=== PATIENT | female | born 1945 | race Hispanic/Latino ===

== ENCOUNTER 2017-04-15 16:04 | Inpatient (IN) | payer MEDICARE ==
[2017-04-15 17:19] LABS: Basophils % (Auto) 0.7 % (0.0-1.8); Eosinophils % (Auto) 1.4 % (0.0-4.3); Hematocrit 38.3 % (30.3-42.9); Hemoglobin 12.6 gm/dl (10.1-14.3); Mean Corpuscular HGB Conc 33 % (30-34); Mean Corpuscular Hemoglobin 31 pg (28-32); Mean Corpuscular Volume 95 fl (79-97); Platelet Count 277 K/mm3 (140-440); Red Blood Count 4.04 M/mm3 (3.65-5.03); Red Cell Distribution Width 14.9 % (13.2-15.2); White Blood Count 8.4 K/mm3 (4.5-11.0)
[2017-04-15 17:29] LABS: Creatine Kinase MB 3.3 ng/mL (0.0-4.0)
[2017-04-15 17:30] LABS: Anion Gap 16 mmol/L; BUN/Creatinine Ratio 23.33; Blood Urea Nitrogen 14 mg/dL (7-17); Calcium 9.7 mg/dL (8.4-10.2); Carbon Dioxide 28 mmol/L (22-30); Chloride 101.2 mmol/L (98-107); Creatine Kinase 60 units/L (30-135); Glucose 84 mg/dL (65-100); Potassium 4.2 mmol/L (3.6-5.0); Sodium 141 mmol/L (137-145)
--- NOTE | 2017-04-15 18:09 | Cat Scan Report ---
FINAL REPORT PROCEDURE: CT HEAD/BRAIN WO CON TECHNIQUE: Computerized tomography of the head was performed without contrast material. HISTORY: dizzy COMPARISON: No prior studies are available for comparison. FINDINGS: Brain: There is no evidence of intracranial hemorrhage. No parenchymal hemorrhage is seen. No mass lesions or mass effect is identified. No abnormal extra-axial fluid collections or masses are seen. There is a well-defined oval area of decreased density in the right side of the lizabeth measuring 3.5 x 7.6 millimeters. The appearance is consistent with a mature lacunar infarct. There is some decreased density seen in the periventricular white matter without mass effect. This is fairly symmetric and does not exhibit any mass effect consistent with gliosis probably on the basis of microvascular disease or white matter changes of aging. Ventricles: The ventricles, sulcal pattern and fissures are prominent consistent with atrophy. Bones: No evidence of acute fracture. Paranasal sinuses: clear Mastoid air cells: A few of the mastoid air cells on the right anteriorly inferiorly are opacified. Mastoid air cells on the right and left otherwise are clear. IMPRESSION: There is evidence of mild atrophy and gliosis. Old lacunar infarct visualized right side of the lizabeth. No acute intracranial abnormalities are identified. Mild right-sided mastoid air cell disease. No other abnormalities are identified.
--- NOTE | 2017-04-15 21:54 | Emergency Department Report ---
ED Syncope HPI - General Chief Complaint: Dizziness Stated Complaint: SYNCOPE Time Seen by Provider: 04/15/17 20:50 Source: patient Exam Limitations: no limitations - History of Present Illness Initial Comments: 71-year-old female the past medical history of osteoporosis, arthritis, and hypothyroidism presents to the hospital with complaint of near syncopal episode. Patient was at PMD office receiving a intra-articular injection at the knee for arthritis. Patient then began to sit up and felt like she was going to pass out and everything was turning dark. The staff gave her a banana thinking maybe her blood sugar was low however, when patient sat up again the near syncopal episode returned. Patient states she has had good by mouth intake and denies nausea, vomiting, vertical, melena, hematochezia, chest pain shortness of breath, headache, or focal weakness/numbness. Patient has received these injections 3 previous times without any side effects or issues. PMD: Dr. Kena Virk - Related Data Allergies/Adverse Reactions: Allergies cephalexin monohydrate [From [employer]] Allergy (Verified 04/15/17 21:11) Hives Home Medications: Ambulatory Orders Alendronate Sodium [Fosamax] 70 mg PO QWEEK 04/15/17 Ergocalciferol(Vitamin D2)(Nf) [Vitamin D (Nf)] 400 unit PO DAILY 04/15/17 Levothyroxine [Synthroid] 100 mcg PO QAM 04/15/17 Omeprazole Magnesium [PriLOSEC Otc] 40 mg PO QDAY 04/15/17 Tiotropium [Spiriva] 18 mcg IH QDAY 04/15/17 ED Review of Systems ROS: Stated complaint: SYNCOPE Other details as noted in HPI Comment: All other systems reviewed and negative Other: Constitutional: No fevers chills Eyes: No eye pain visual changes ENT: No ear pain or throat pain Neck: Denies pain Respiratory: Denies cough wheezing shortness of breath Cardiovascular: Denies chest pain, palpitations GI: Denies abdominal pain, nausea, vomiting, diarrhea : Denies dysuria, urinary frequency, or urgency Musculoskeletal: Chronic knee pain Skin: Denies rash, lesions, erythema Neurologic: Denies headache, numbness, weakness Psychiatric: Denies suicidal ideation, hallucinations ED Past Medical Hx - Past Medical History Previous Medical History?: Yes Hx Arthritis: Yes (osteoporosis) Additional medical history: Hypothyroidism - Surgical History Past Surgical History?: Yes Additional Surgical History: left wrist, fracture repair. - Social History Smoking Status: Current Every Day Smoker Substance Use Type: None - Medications Home Medications: Home Medications Medication Instructions Recorded Confirmed Last Taken Type Alendronate Sodium [Fosamax] 70 mg PO QWEEK 04/15/17 04/15/17 04/15/17 History Ergocalciferol(Vitamin D2)(Nf) 400 unit PO DAILY 04/15/17 04/15/17 04/15/17 History [Vitamin D (Nf)] Levothyroxine [Synthroid] 100 mcg PO QAM 04/15/17 04/15/17 04/15/17 History Omeprazole Magnesium [PriLOSEC Otc] 40 mg PO QDAY 04/15/17 04/15/17 04/15/17 History Tiotropium [Spiriva] 18 mcg IH QDAY 04/15/17 04/15/17 04/15/17 History ED Physical Exam - General Limitations: No Limitations - Other Other exam information: General: No limitations, patient is alert in no acute distress Head exam: Atraumatic, normocephalic Eyes exam: Normal appearance, pupils equal reactive to light, extraocular movements intact ENT: Moist mucous membrane, normal oropharynx Neck exam: Normal inspection, full range of motion, no meningismus nontender Respiratory exam: Clear to auscultation bilateral, no wheezes, rales, crackles Cardiovascular: Normal rate and rhythm, normal heart sounds Abdomen: Soft, nondistended, and nontender, with normal bowel sounds, no rebound, or guarding Extremity: Full range of motion normal inspection no deformity. Band-Aid noted at injection site of right superior lateral knee. No swelling, erythema, or warmth Back: Normal Inspection, full range of motion, no tenderness Neurologic: Alert, oriented x3, cranial nerves intact, no motor or sensory deficit Psychiatric: normal affect, normal mood Skin: Warm, dry, intact ED Course Vital Signs 04/15/17 04/15/17 04/15/17 16:18 21:07 21:09 Temperature 97.5 F L Pulse Rate 60 68 Pulse Rate [ 57 L Lying] Pulse Rate [ 54 L Sitting] Pulse Rate [ 68 Standing] Respiratory 16 16 Rate Blood Pressure 154/92 Blood Pressure 148/78 [Lying] Blood Pressure 135/81 [Right] Blood Pressure 138/81 [Sitting] Blood Pressure 135/81 [Standing] O2 Sat by Pulse 100 98 Oximetry - Reevaluation(s) Reevaluation #1: 04/15/17 21:54 Orthostatic vital signs were fairly unremarkable. Patient states she feels better however, given the syncopal episodes with normal labs and she'll be admitted to the hospital for further workup. ED Medical Decision Making - Lab Data Result diagrams: 04/15/17 16:50 04/15/17 16:50 Lab Results 04/15/17 04/15/17 04/15/17 Range/Units 16:24 16:50 16:50 WBC 8.4 (4.5-11.0) K/mm3 RBC 4.04 (3.65-5.03) M/mm3 Hgb 12.6 (10.1-14.3) gm/dl Hct 38.3 (30.3-42.9) % MCV 95 (79-97) fl MCH 31 (28-32) pg MCHC 33 (30-34) % RDW 14.9 (13.2-15.2) % Plt Count 277 (140-440) K/mm3 Lymph % (Auto) 21.0 (13.4-35.0) % [place] % (Auto) 9.8 H (0.0-7.3) % Eos % (Auto) 1.4 (0.0-4.3) % Baso % (Auto) 0.7 (0.0-1.8) % Lymph # 1.8 (1.2-5.4) K/mm3 [place] # 0.8 (0.0-0.8) K/mm3 Eos # 0.1 (0.0-0.4) K/mm3 Baso # 0.1 (0.0-0.1) K/mm3 Seg Neutrophils % 67.1 (40.0-70.0) % Seg Neutrophils # 5.6 (1.8-7.7) K/mm3 Sodium 141 (137-145) mmol/L Potassium 4.2 (3.6-5.0) mmol/L Chloride 101.2 (98-107) mmol/L Carbon Dioxide 28 (22-30) mmol/L Anion Gap 16 mmol/L BUN 14 (7-17) mg/dL Creatinine 0.6 L (0.7-1.2) mg/dL Estimated GFR > 60 ml/min BUN/Creatinine Ratio 23.33 % Glucose 84 (65-100) mg/dL POC Glucose 118 H (70-105) Calcium 9.7 (8.4-10.2) mg/dL Total Creatine Kinase 60 (30-135) units/L CK-MB (CK-2) 3.3 (0.0-4.0) ng/mL CK-MB (CK-2) Rel Index 5.5 H (0-4) Troponin T < 0.010 (0.00-0.029) ng/mL - EKG Data -: EKG Interpreted by Me (sinus bradycardia 56 T wave inversion in V2 and V1. No ST elevation OK) - EKG Data When compared to previous EKG there are: previous EKG unavailable - Radiology Data Radiology results: report reviewed (CT head: Atrophy, gliosis, old lacunar infarct) - Medical Decision Making Other differential: Medication reaction Plan to admit patient to hospital for further observation and workup of postural related near syncopal episodes. UA ordered and pending at disposition - Differential Diagnosis vertigo, near syncope, anemia, carotid stenosis, dehydration, vasovagal Critical Care Time: No Critical care attestation.: If time is entered above; I have spent that time in minutes in the direct care of this critically ill patient, excluding procedure time. ED Disposition Clinical Impression: Near syncope, Arthritis, Hypothyroidism Disposition: OP ADMIT IP TO THIS HOSP Is pt being admited?: Yes Condition: Stable Time of Disposition: 21:56 (Dr. Nugent/hosp)
--- NOTE | 2017-04-15 23:01 | History and Physical Report ---
History of Present Illness Date of examination: 04/15/17 Date of admission: 04/15/17 Chief complaint: near syncope History of present illness: patient is 71-year-old with history of hypothyroidism, arthritis, osteoporosis. She went to her orthopedic surgeon and had an injection to right knee. Soon after while she was about to get up she felt some dizziness, and felt as if she was about to pass out. This happened twice at office orthopedic surgeon today. She states she has had similar injections before and has been uneventful. She was therefore sent to the emergency department for evaluation. She denies any chest pain or shortness of breath. No fever. She will be admitted for further work up. Past History Past Medical History: arthritis, hypothyroidism, other (osteoporosis) Past Surgical History: Other (left wrist surgery) Social history: , lives with family, smoking, full code Family history: CAD, diabetes, hypertension Medications and Allergies Allergies Allergy/AdvReac Type Severity Reaction Status Date / Time cephalexin monohydrate Allergy Hives Verified 04/15/17 21:11 [From Kef[employer]] Home Medications Medication Instructions Recorded Confirmed Last Taken Type Alendronate Sodium [Fosamax] 70 mg PO QWEEK 04/15/17 04/15/17 04/15/17 History Ergocalciferol(Vitamin D2)(Nf) 400 unit PO DAILY 04/15/17 04/15/17 04/15/17 History [Vitamin D (Nf)] Levothyroxine [Synthroid] 100 mcg PO QAM 04/15/17 04/15/17 04/15/17 History Omeprazole Magnesium [PriLOSEC Otc] 40 mg PO QDAY 04/15/17 04/15/17 04/15/17 History Tiotropium [Spiriva] 18 mcg IH QDAY 04/15/17 04/15/17 04/15/17 History Review of Systems All systems: negative (no fever, no chest pain, no shortness of breath, no headache. All other systems reviewed and are negative) Exam - Physical Exam Narrative exam: Gen appearance: Not in acute distress HEENT: normocephalic,atraumatic Neck:supple, no JVD Lungs: clear to auscultation bilaterally, no crackles or wheezes Heart :S1 and S2 regular, no murmurs, rubs or gallop Abdomen: Soft, non tender, non-distended, normal bowel sounds Extremities :no edema no clubbing or cyanosis, l Neuro: Awake alert oriented 3, normal speech, moves all ext no focal neurological signs - Constitutional Vitals: Temp Pulse Resp BP Pulse Ox 97.5 F L 67 15 146/86 94 04/15/17 16:18 04/15/17 22:00 04/15/17 22:00 04/15/17 22:00 04/15/17 22:00 Results - Labs CBC & Chem 7: 04/15/17 16:50 04/15/17 16:50 Labs: Abnormal lab results 04/15/17 04/15/17 04/15/17 Range/Units 16:24 16:50 16:50 [place] % (Auto) 9.8 H (0.0-7.3) % Creatinine 0.6 L (0.7-1.2) mg/dL POC Glucose 118 H (70-105) CK-MB (CK-2) Rel Index 5.5 H (0-4) Assessment and Plan Near syncope. Admit to telemetry. Obtain neuro checks every 6 hours. Obtain Echocardiogram. Orthostatic vitals every [address] head unremarkable. Hypothyroidism. Resume levothyroxine Arthritis. She gets injection from Orthopedic Surgeon. Osteoporosis. On Fosamax DVT prophylaxis with heparin Full CODE STATUS
[2017-04-15] MEDS ORDERED: ZOFRAN IV PRN (23:02)
[2017-04-15] MEDS ORDERED: MORPHINE IV PRN (23:02)
[2017-04-15] MEDS ORDERED: DULCOLAX PR PRN (23:02)
[2017-04-15] MEDS ORDERED: TYLENOL PO PRN (23:02)
[2017-04-15] MEDS ORDERED: MILK OF MAGNESIA PO PRN (23:02)
[2017-04-15 23:04] LABS: Bacteria,Urine 1+ /HPF (Negative); Bilirubin,Urine NEG (Negative); Blood,Urine NEG (Negative); Ketones,Urine NEG (Negative); Leukocyte Esterase,Urine TR (Negative); Mucus,Urine FEW /HPF; Nitrite,Urine NEG (Negative); Protein,Urine <15 mg/dL mg/dL (Negative); Urobilinogen,Urine < 2.0 mg/dL (<2.0)
[2017-04-15 23:13] LABS: RBC,Urine < 1.0 /HPF (0.0-6.0)
[2017-04-16] MEDS: NACL 0.9% 1000 ML 1,000 ML IV SCH ×2 (01:41→18:13)
--- NOTE | 2017-04-16 02:24 | Admit Criteria Form ---
Admission Criteria Documentation: SYNCOPE Clinical Indications for Admission to Inpatient Care ( Place 'X' for any and all applicable criteria): Admission is indicated for syncope and ANY ONE of the following (1)(2)(3)(4)(5) (6)(7) : [X]I. Inpatient admission required rather than observation care (Also use Syncope: Observation Care Criteria as appropriate) because of ANY ONE of the following: [ ]a) Hemodynamic instability that is severe or persistent [X]b) Cardiac arrhythmias of immediate concern identified or strongly suspected (eg, needs electrophysiologic study) [ ]c) Acute coronary syndrome identified (Also use Myocardial Infarction or Angina Criteria form ) [ ]d) Structural cardiac disorder (eg, aortic stenosis) suspected as cause that requires immediate correction [ ]e) Respiratory symptoms (eg, dyspnea, tachypnea) that are severe or persistent [ ]f) Neurologic signs or symptoms that are severe or persistent ( eg, stroke, seizures, altered mental status) [ ]g) Severe electrolyte abnormalities requiring inpatient care [ ]h) Supplemental oxygen or respiratory treatment for over 24 hrs that are performable only in acute inpatient setting [ ]i) IV fluid to replace significant ongoing (eg, for over 24 hrs ) losses (>3 L/m2 per day) [ ]j) Continuous intravenous infusion of anticoagulation, platelet inhibitor, vasoactive, or antiarrhythmic medication(15)(16) [ ]k) Pulmonary artery catheter monitoring [ ]l) Temporary pacemaker placement(17) [ ]m) Emergent cardioversion(18) [ ]n) Other conditions, treatment or monitoring requiring inpatient admission [ ]II. Suspicion of imminently dangerous cause (eg, rare causes like pericardial tamponade, pulmonary embolism) [ ]III. Syncope causing severe injury requiring hospitalization Extended stay beyond goal length of stay may be needed for(28) [ ]a) Dangerous arrhythmia(15)(23)(27)(29) [ ]b) Myocardial ischemia [ ]c) Seizure disorder [ ]d) Syncope-related injuries The original [employer] content created by [employer] has been revised. The portions of the content which have been revised are identified through the use of italic text or in bold, and Josh [employer] has neither reviewed nor approved the modified material. All other unmodified content is copyright [employer] [facility] [employer]. Please see references footnoted in the original [facility] edition 2016 Admission Criteria Met: Yes
[2017-04-16 05:36] LABS: Eosinophils % (Auto) 3.6 % (0.0-4.3); Hemoglobin 11.9 gm/dl (10.1-14.3); Mean Corpuscular HGB Conc 33 % (30-34); Mean Corpuscular Hemoglobin 31 pg (28-32); Mean Corpuscular Volume 94 fl (79-97); Platelet Count 241 K/mm3 (140-440); Red Blood Count 3.81 M/mm3 (3.65-5.03); Red Cell Distribution Width 14.7 % (13.2-15.2); White Blood Count 7.3 K/mm3 (4.5-11.0)
[2017-04-16] MEDS: SYNTHROID PO SCH (05:37)
[2017-04-16] MEDS: HEPARIN SUB-Q SCH ×3 (05:38→21:37)
[2017-04-16 05:50] LABS: Anion Gap 15 mmol/L; Blood Urea Nitrogen 13 mg/dL (7-17); Calcium 9.2 mg/dL (8.4-10.2); Carbon Dioxide 26 mmol/L (22-30); Chloride 101.6 mmol/L (98-107); Glucose 81 mg/dL (65-100); Potassium 3.7 mmol/L (3.6-5.0); Sodium 139 mmol/L (137-145)
--- NOTE | 2017-04-16 08:00 | Progress Note ---
Assessment and Plan Assessment and plan: --Near syncope; probably vasovagal/autonomic No new episodes of seeing near syncope since admission, syncope workup is in progress, fall precautions, physical therapy --History of hypothyroidism; stable on Synthroid --Osteoporosis continue Fosamax --History of osteoarthritis; supportive care --Mild malnutrition ; BMI of 18.2 , nutrition supplements and supportive care --DVT prophylaxis with heparin --Full CODE STATUS Physical therapy, closely monitor possible discharge home tomorrow if stable Discharge planning: Per case management/ home health and DC if needed History Interval history: Patient seen and evaluated medical records reviewed Admitted with near syncope and dizziness Syncope workup is in progress No new episodes of near syncope or syncope since admission Alert awake oriented 3 not in acute distress Hospitalist Physical - Constitutional Vitals: Temp Pulse Resp BP Pulse Ox 98.5 F 74 20 147/89 97 04/16/17 06:15 04/16/17 06:15 04/16/17 06:15 04/16/17 06:15 04/16/17 06:15 General appearance: Present: no acute distress, well-nourished - EENT Eyes: Present: PERRL, EOM intact - Neck Neck: Present: supple, normal ROM - Respiratory Respiratory effort: normal Respiratory: bilateral: diminished, negative: rales, rhonchi, wheezing - Cardiovascular Rhythm: regular Heart Sounds: Present: S1 & S2 - Extremities Extremities: no ischemia, pulses intact, No edema - Abdominal General gastrointestinal: soft, non-tender, non-distended, normal bowel sounds - Integumentary Integumentary: Present: clear, warm - Psychiatric Psychiatric: appropriate mood/affect, cooperative - Neurologic Neurologic: CNII-XII intact, moves all extremities Results - Labs CBC & Chem 7: 04/16/17 04:42 04/16/17 04:42 Labs: Laboratory Last Values WBC 7.3 K/mm3 (4.5-11.0) 04/16/17 04:42 RBC 3.81 M/mm3 (3.65-5.03) 04/16/17 04:42 Hgb 11.9 gm/dl (10.1-14.3) 04/16/17 04:42 Hct 36.0 % (30.3-42.9) 04/16/17 04:42 MCV 94 fl (79-97) 04/16/17 04:42 MCH 31 pg (28-32) 04/16/17 04:42 MCHC 33 % (30-34) 04/16/17 04:42 RDW 14.7 % (13.2-15.2) 04/16/17 04:42 Plt Count 241 K/mm3 (140-440) 04/16/17 04:42 Lymph % (Auto) 27.0 % (13.4-35.0) 04/16/17 04:42 [place] % (Auto) 10.3 % (0.0-7.3) H 04/16/17 04:42 Eos % (Auto) 3.6 % (0.0-4.3) 04/16/17 04:42 Baso % (Auto) 1.0 % (0.0-1.8) 04/16/17 04:42 Lymph # 2.0 K/mm3 (1.2-5.4) 04/16/17 04:42 [place] # 0.8 K/mm3 (0.0-0.8) 04/16/17 04:42 Eos # 0.3 K/mm3 (0.0-0.4) 04/16/17 04:42 Baso # 0.1 K/mm3 (0.0-0.1) 04/16/17 04:42 Seg Neutrophils % 58.1 % (40.0-70.0) 04/16/17 04:42 Seg Neutrophils # 4.2 K/mm3 (1.8-7.7) 04/16/17 04:42 Sodium 139 mmol/L (137-145) 04/16/17 04:42 Potassium 3.7 mmol/L (3.6-5.0) 04/16/17 04:42 Chloride 101.6 mmol/L (98-107) 04/16/17 04:42 Carbon Dioxide 26 mmol/L (22-30) 04/16/17 04:42 Anion Gap 15 mmol/L 04/16/17 04:42 BUN 13 mg/dL (7-17) 04/16/17 04:42 Creatinine 0.5 mg/dL (0.7-1.2) L 04/16/17 04:42 Estimated GFR > 60 ml/min 04/16/17 04:42 BUN/Creatinine Ratio 26.00 % 04/16/17 04:42 Glucose 81 mg/dL (65-100) 04/16/17 04:42 POC Glucose 118 (70-105) H 04/15/17 16:24 Calcium 9.2 mg/dL (8.4-10.2) 04/16/17 04:42 Total Creatine Kinase 60 units/L (30-135) 04/15/17 16:50 CK-MB (CK-2) 3.3 ng/mL (0.0-4.0) 04/15/17 16:50 CK-MB (CK-2) Rel Index 5.5 (0-4) H 04/15/17 16:50 Troponin T < 0.010 ng/mL (0.00-0.029) 04/15/17 16:50 Urine Color Yellow (Yellow) 04/15/17 22:30 Urine Turbidity Cloudy (Clear) 04/15/17 22:30 Urine pH 7.0 (5.0-7.0) 04/15/17 22:30 Ur Specific [place] 1.013 (1.003-1.030) 04/15/17 22:30 Urine Protein <15 mg/dl mg/dL (Negative) 04/15/17 22:30 Urine Glucose (UA) Neg mg/dL (Negative) 04/15/17 22:30 Urine Ketones Neg mg/dL (Negative) 04/15/17 22:30 Urine Blood Neg (Negative) 04/15/17 22:30 Urine Nitrite Neg (Negative) 04/15/17 22:30 Urine Bilirubin Neg (Negative) 04/15/17 22:30 Urine Urobilinogen < 2.0 mg/dL (<2.0) 04/15/17 22:30 Ur Leukocyte Esterase Tr (Negative) 04/15/17 22:30 Urine WBC (Auto) 7.0 /HPF (0.0-6.0) H 04/15/17 22:30 Urine RBC (Auto) < 1.0 /HPF (0.0-6.0) 04/15/17 22:30 U Epithel Cells (Auto) 1.0 /HPF (0-13.0) 04/15/17 22:30 Urine Bacteria (Auto) 1+ /HPF (Negative) 04/15/17 22:30 Calcium Oxalate Crystal 1+ 04/15/17 22:30 Urine Mucus Few /HPF 04/15/17 22:30 Urine Yeast (Budding) 2+ /HPF 04/15/17 22:30
[2017-04-16] MEDS ORDERED: NON-FORMULARY (Omeprazole Magnesium [Prilosec Otc] 40 MG) PO SCH (10:00)
[2017-04-16] MEDS ORDERED: ERGOCALCIFEROL 400 UNIT PO SCH (10:00)
[2017-04-16] MEDS: SPIRIVA IH SCH (10:31)
[2017-04-16] MEDS: PROTONIX PO SCH (12:40)
[2017-04-16] MEDS: VITAMIN D3 PO SCH (12:40)
[2017-04-17] MEDS: NACL 0.9% 1000 ML 1,000 ML IV SCH (06:43)
[2017-04-17] MEDS: SYNTHROID PO SCH (06:44)
[2017-04-17] MEDS: HEPARIN SUB-Q SCH ×2 (06:44→13:45)
[2017-04-17] MEDS: SPIRIVA IH SCH ×2 (07:20→11:52)
[2017-04-17] MEDS: PROTONIX PO SCH (09:50)
[2017-04-17] MEDS: VITAMIN D3 PO SCH (09:50)
--- NOTE | 2017-04-17 13:27 | Discharge Summary ---
Providers - Providers Date of Admission: 04/15/17 23:02 Date of discharge: 04/17/17 Attending physician: KIRSTIE TURK 04/16/17 07:59 Physical Therapy Evaluation and Treat [CONS] Routine Comment: Reason For Exam: near syncope/fall risk Primary care physician: SONIA MYERS Hospitalization Reason for admission: near syncope Condition: Stable Pertinent studies: CT head without contrast; mild atrophy and gliosis or lacunar infarct Carotid Doppler; no hemodynamically significant stenosis Echocardiogram; normal left ventricular function ejection fraction 60-65% Hospital course: 71-year-old female patient with multiple medical problems was admitted through emergency room with the near syncopal episode Admitted to the hospital symptomatically managed fall precautions observed, syncope workup was negative as mentioned above Received physical therapy, case management has evaluated the patient, set up for home health Patient was evaluated for home oxygen, however her O2 sats were within the protocols, and no indication for home oxygen Today she is comfortable in bed no new complaints, physical examination is within normal limits, hemodynamically and clinically stable for discharge and follow up with the primary care physician. Smoking cessation counseling done patient strongly advised to quit tobacco use, patient verbalized understanding Advised to observe fall precautions Meclizine 12.5 mg twice a day advised for severe dizziness and vertigo as needed Discharge diagnosis : --Near syncope; probably vasovagal/autonomic --History of hypothyroidism; --Osteoporosis --History of osteoarthritis; --Mild malnutrition ; BMI of 18.2 , --Ongoing tobacco use Disposition: DC-01 TO HOME OR SELFCARE Time spent for discharge: 31 min Core Measure Documentation - Palliative Care Palliative Care/ Comfort Measures: Not Applicable - Core Measures Any of the following diagnoses?: none Exam - Constitutional Vitals: Temp Pulse Resp BP Pulse Ox 97.6 F 76 18 156/85 96 04/17/17 08:00 04/17/17 08:00 04/17/17 08:00 04/17/17 08:00 04/17/17 08:00 General appearance: Present: no acute distress, well-nourished - EENT Eyes: Present: PERRL, EOM intact - Neck Neck: Present: supple, normal ROM - Respiratory Respiratory effort: normal Respiratory: negative: rales, rhonchi, wheezing - Cardiovascular Rhythm: regular Heart Sounds: Present: S1 & S2 - Extremities Extremities: no ischemia, No edema Peripheral Pulses: within normal limits - Abdominal General gastrointestinal: Present: soft, non-tender, non-distended, normal bowel sounds - Integumentary Integumentary: Present: clear, warm - Musculoskeletal Musculoskeletal: strength equal bilaterally, generalized weakness - Psychiatric Psychiatric: appropriate mood/affect, cooperative - Neurologic Neurologic: CNII-XII intact, moves all extremities Plan Activity: no driving until cleared by PCP, fall precautions Diet: regular Durable Medical Equipment Needed Upon Discharge: Cane, Walker-Standard Additional Instructions: If you have any current episodes of near syncope, you may need outpatient neurology evaluation Follow up with: SONIA MYERS MD [Primary Care Provider] - 3-5 Days Prescriptions: Meclizine [Antivert] 12.5 mg PO BID PRN #20 tablet PRN Reason: Vertigo Nicotine [Habitrol] 7 mg TD DAILY #30 patch
[2017-04-17 16:00] VITALS: BP 129/71
--- NOTE | 2017-04-20 07:29 | Vascular Lab Report ---
CAROTID DUPLEX STUDY: RIGHT PSVEDV CCA PROX:[id number] CCA DIST: 7417 ICA PROX: 4815 ICA MID: 8826 ICA DIST: 9027 ECA: 69 VERT: 36 10 LEFT PSVEDV CCA PROX: 9819 CCA DIST: 7217 ICA PROX: 6418 ICA MID:7620 ICA DIST: 8227 ECA: 85 VERT: 58 12 REASON FOR EXAM: Carotid artery stenosis/syncope. COMMENTS ON THE RIGHT: Doppler frequency analysis is consistent with 16 to 49 percent diameter reduction of the internal carotid artery. Minimal amount of plaque is seen. The common carotid artery is patent. The external carotid artery is patent. The vertebral artery has antegrade flow. COMMENTS ON THE LEFT: Doppler frequency analysis is consistent with 16 to 49 percent diameter reduction of the internal carotid artery. Minimal amount of plaque is seen. The common carotid artery is patent. The external carotid artery is patent. The vertebral artery has antegrade flow. IMPRESSION: Less than 50% diameter reduction in the internal carotid arteries bilaterally. Consider repeat carotid artery duplex in 12 months.
== END 2017-04-17 18:19 | disposition home health service (06) | DRG 74 ==
LOC: ED 16:04 → 3A 23:02
PROVIDERS: ADMIT Internal Medicine; ATTEND Internal Medicine
DX: G90.8 Other disorders of autonomic nervous system (principal); E44.1 Mild protein-calorie malnutrition; Z68.1 Body mass index [BMI] 19.9 or less, adult; M19.90 Unspecified osteoarthritis, unspecified site; E03.9 Hypothyroidism, unspecified; M81.0 Age-related osteoporosis without current pathological fracture; G89.29 Other chronic pain; F17.200 Nicotine dependence, unspecified, uncomplicated; Z88.1 Allergy status to other antibiotic agents; Z79.899 Other long term (current) drug therapy; Z82.49 Family history of ischemic heart disease and other diseases of the circulatory system; Z83.3 Family history of diabetes mellitus; Z71.6 Tobacco abuse counseling
CPT/HCPCS: 36415; 70450; 80048; 81001; 82550; 82553; 82962; 84484; 85025; 87086; 93005; 93010; 93306; 93880; 94760; 99406; G8978-GP; G8979-GP; J1644; J7030

== ENCOUNTER 2017-04-23 13:13 | Inpatient (IN) | payer MEDICARE ==
[2017-04-23 14:07] LABS: Eosinophils % (Auto) 3.2 % (0.0-4.3); Hematocrit 35.3 % (30.3-42.9); Hemoglobin 11.5 gm/dl (10.1-14.3); Mean Corpuscular HGB Conc 33 % (30-34); Mean Corpuscular Hemoglobin 31 pg (28-32); Mean Corpuscular Volume 94 fl (79-97); Platelet Count 221 K/mm3 (140-440); Red Blood Count 3.74 M/mm3 (3.65-5.03); Red Cell Distribution Width 14.5 % (13.2-15.2); White Blood Count 7.2 K/mm3 (4.5-11.0)
[2017-04-23 14:23] LABS: BUN/Creatinine Ratio 21.66; Blood Urea Nitrogen 13 mg/dL (7-17); Calcium 8.5 mg/dL (8.4-10.2); Carbon Dioxide 24 mmol/L (22-30); Glucose 102 mg/dL (65-100)
[2017-04-23 14:24] LABS: Alanine Aminotransferase 16 units/L (7-56); Albumin 3.2 g/dL (3.9-5); Albumin/Globulin Ratio 1.5 %; Alkaline Phosphatase 57 units/L (35-129); Anion Gap 16 mmol/L; Chloride 106.4 mmol/L (98-107); Potassium 3.9 mmol/L (3.6-5.0); Sodium 142 mmol/L (137-145); Total Protein 5.4 g/dL (6.3-8.2)
[2017-04-23 14:26] LABS: Urine Drugs of Abuse Note Disclamer
[2017-04-23 14:40] LABS: Bilirubin,Urine NEG (Negative); Blood,Urine NEG (Negative); Ketones,Urine NEG (Negative); Leukocyte Esterase,Urine LG (Negative); Mucus,Urine FEW /HPF; Nitrite,Urine NEG (Negative); Protein,Urine <15 mg/dL mg/dL (Negative); Urobilinogen,Urine < 2.0 mg/dL (<2.0)
[2017-04-23] MEDS ORDERED: MACROBID PO ONE (16:55)
[2017-04-23] MEDS ORDERED: SYNTHROID PO ONE (16:55)
--- NOTE | 2017-04-23 16:57 | Emergency Department Report ---
ED General Adult HPI - General Chief complaint: Neuro Symptoms/Deficit Stated complaint: AMS Time Seen by Provider: 04/23/17 16:45 Source: patient, family, EMS (ems notes not available at time of chart dictation), RN notes reviewed, old records reviewed Mode of arrival: Stretcher Limitations: Altered Mental Status - History of Present Illness Initial comments: This is a 71-year-old female. She is previously unknown to me. Her primary care doctor is Dr. Virk. Past medical history includes hypothyroidism, arthritis, DJD. History obtained by speaking to the patient's son Naseem; [phone]/. As for the patient's son, the patient was in her usual state of health, and then at approximately 12:30 PM, had an episode of unresponsiveness, drooling, slurred speech. This lasted for a few minutes. It is mostly resolved. He reports that the patient is typically conversant, and requires minimal assistance with activities of daily living. He further reports that the patient walks with a walker at baseline. To me, the patient complains of mild headache, but cannot further clarify the symptoms. She denies chest pain, shortness of breath, abdominal pain, focal weakness/numbness, irritative / obstructive urinary symptoms. -: Sudden Severity scale (0 -10): 0 Consistency: now resolved Improves with: none Worsens with: none Associated Symptoms: confusion, weakness - Related Data Home Medications Medication Instructions Recorded Confirmed Last Taken Alendronate Sodium [Fosamax] 70 mg PO QWEEK 04/15/17 04/23/17 04/15/17 Ergocalciferol(Vitamin D2)(Nf) 400 unit PO DAILY 04/15/17 04/23/17 04/15/17 [Vitamin D (Nf)] Levothyroxine [Synthroid] 100 mcg PO QAM 04/15/17 04/23/17 04/15/17 Omeprazole Magnesium [PriLOSEC Otc] 40 mg PO QDAY 04/15/17 04/23/17 04/15/17 Tiotropium [Spiriva] 18 mcg IH QDAY 04/15/17 04/23/17 04/15/17 Previous Rx's Medication Instructions Recorded Last Taken Type Meclizine [Antivert] 12.5 mg PO BID PRN #20 tablet 04/17/17 Unknown Rx Nicotine [Habitrol] 7 mg TD DAILY #30 patch 04/17/17 Unknown Rx Allergies Allergy/AdvReac Type Severity Reaction Status Date / Time cephalexin monohydrate Allergy Hives Verified 04/15/17 21:11 [From Keflex] ED Review of Systems ROS: Stated complaint: AMS Other details as noted in HPI Constitutional: malaise, weakness Eyes: denies: vision change ENT: denies: epistaxis Respiratory: denies: cough Cardiovascular: syncope. denies: chest pain Gastrointestinal: denies: abdominal pain Genitourinary: denies: dysuria Skin: denies: lesions Neurological: weakness, confusion Psychiatric: as per HPI ED Past Medical Hx - Past Medical History Previous Medical History?: Yes Hx Arthritis: Yes Hx COPD: Yes Hx HIV: No Additional medical history: Hypothyroidism - Surgical History Additional Surgical History: left wrist, fracture repair. - Social History Smoking Status: Current Every Day Smoker - Medications Home Medications: Home Medications Medication Instructions Recorded Confirmed Last Taken Type Alendronate Sodium [Fosamax] 70 mg PO QWEEK 04/15/17 04/23/17 04/15/17 History Ergocalciferol(Vitamin D2)(Nf) 400 unit PO DAILY 04/15/17 04/23/17 04/15/17 History [Vitamin D (Nf)] Levothyroxine [Synthroid] 100 mcg PO QAM 04/15/17 04/23/17 04/15/17 History Omeprazole Magnesium [PriLOSEC Otc] 40 mg PO QDAY 04/15/17 04/23/17 04/15/17 History Tiotropium [Spiriva] 18 mcg IH QDAY 04/15/17 04/23/17 04/15/17 History Meclizine [Antivert] 12.5 mg PO BID PRN #20 tablet 04/17/17 04/23/17 Unknown Rx Nicotine [Habitrol] 7 mg TD DAILY #30 patch 04/17/17 04/23/17 Unknown Rx ED Physical Exam - General Limitations: No Limitations, Physical Limitation General appearance: alert, lethargic - Head Head exam: Present: atraumatic, normocephalic - Eye Eye exam: Present: normal appearance, PERRL, EOMI, other (visual acuity intact to finger counting, color perception, reading at a close distance). Absent: nystagmus - ENT ENT exam: Present: normal exam, normal orophraynx, mucous membranes moist, normal external ear exam - Neck Neck exam: Present: normal inspection, full ROM. Absent: tenderness, meningismus - Respiratory Respiratory exam: Present: normal lung sounds bilaterally. Absent: respiratory distress, wheezes, rales, rhonchi, stridor, chest wall tenderness - Cardiovascular Cardiovascular Exam: Present: regular rate, normal rhythm, normal heart sounds. Absent: bradycardia, tachycardia, irregular rhythm, systolic murmur, diastolic murmur, rubs, gallop - GI/Abdominal GI/Abdominal exam: Present: soft, normal bowel sounds. Absent: distended, tenderness, guarding, rebound, rigid, pulsatile mass - Extremities Exam Extremities exam: Present: normal inspection, full ROM, normal capillary refill , other (2+ pulses noted in 4 extremities. The compartments are soft.). Absent : pedal edema, joint swelling, calf tenderness - Back Exam Back exam: Present: normal inspection, full ROM. Absent: tenderness, CVA tenderness (R), CVA tenderness (L), muscle spasm, paraspinal tenderness, vertebral tenderness - Neurological Exam Neurological exam: Present: alert, oriented X3, other (Extraocular movements intact. Tongue midline. No facial droop. Facial sensation intact to light touch in the V1, V2, V3 distribution bilaterally. 5 and 5 strength in 4 extremities.. Sensation is intact to light touch in 4 extremities.). Absent: motor sensory deficit - Psychiatric Psychiatric exam: Present: normal affect, normal mood - Skin Skin exam: Present: warm, dry, intact, normal color. Absent: rash ED Course Vital Signs 04/23/17 04/23/17 04/23/17 13:30 13:31 13:39 Temperature Pulse Rate 53 L Respiratory 16 16 Rate Blood Pressure 135/63 114/65 Blood Pressure [Left] O2 Sat by Pulse 97 99 Oximetry 04/23/17 04/23/17 04/23/17 13:40 13:50 14:00 Temperature Pulse Rate 62 64 59 L Respiratory 16 16 15 Rate Blood Pressure 135/63 131/69 131/69 Blood Pressure 131/69 [Left] O2 Sat by Pulse 100 100 100 Oximetry 04/23/17 04/23/17 04/23/17 14:08 14:10 14:20 Temperature 97.5 F L Pulse Rate 64 54 L 57 L Respiratory 15 14 14 Rate Blood Pressure 123/77 129/66 Blood Pressure 123/77 [Left] O2 Sat by Pulse 100 100 100 Oximetry 04/23/17 04/23/17 04/23/17 14:30 14:40 14:50 Temperature Pulse Rate 57 L 52 L 57 L Respiratory 12 16 16 Rate Blood Pressure 129/66 139/66 139/71 Blood Pressure [Left] O2 Sat by Pulse 98 100 99 Oximetry 04/23/17 04/23/17 04/23/17 15:00 15:10 15:20 Temperature Pulse Rate 56 L 61 56 L Respiratory 11 L 15 19 Rate Blood Pressure 142/67 142/67 124/71 Blood Pressure [Left] O2 Sat by Pulse 99 100 99 Oximetry 04/23/17 04/23/17 04/23/17 15:30 15:35 15:40 Temperature Pulse Rate 56 L 56 L 56 L Respiratory 13 19 16 Rate Blood Pressure 144/63 144/63 Blood Pressure 124/71 [Left] O2 Sat by Pulse 99 99 99 Oximetry 04/23/17 04/23/17 04/23/17 15:50 16:00 16:10 Temperature Pulse Rate 62 58 L 62 Respiratory 13 17 17 Rate Blood Pressure 133/76 142/69 142/69 Blood Pressure [Left] O2 Sat by Pulse 99 99 100 Oximetry 04/23/17 04/23/17 04/23/17 16:20 16:30 16:40 Temperature Pulse Rate 66 61 63 Respiratory 13 18 22 Rate Blood Pressure 134/80 134/80 136/85 Blood Pressure [Left] O2 Sat by Pulse 100 100 99 Oximetry 04/23/17 04/23/17 04/23/17 16:50 17:08 17:10 Temperature Pulse Rate 63 Respiratory 16 Rate Blood Pressure 151/70 151/70 151/70 Blood Pressure [Left] O2 Sat by Pulse 99 89 95 Oximetry 04/23/17 04/23/17 04/23/17 17:20 17:30 17:40 Temperature Pulse Rate 59 L 57 L 59 L Respiratory 17 14 13 Rate Blood Pressure 144/75 135/74 135/74 Blood Pressure 151/73 135/74 [Left] O2 Sat by Pulse 99 99 99 Oximetry 04/23/17 04/23/17 04/23/17 17:50 18:00 18:10 Temperature Pulse Rate 63 60 62 Respiratory 20 11 L 19 Rate Blood Pressure 151/70 143/78 143/78 Blood Pressure [Left] O2 Sat by Pulse 99 99 94 Oximetry 04/23/17 04/23/17 04/23/17 18:20 18:30 18:40 Temperature Pulse Rate 65 67 67 Respiratory 18 13 13 Rate Blood Pressure 131/75 131/75 138/77 Blood Pressure [Left] O2 Sat by Pulse 94 98 98 Oximetry 04/23/17 04/23/17 04/23/17 18:50 19:00 19:02 Temperature Pulse Rate 65 65 65 Respiratory 8 L 11 L 14 Rate Blood Pressure 145/73 140/69 Blood Pressure 145/73 [Left] O2 Sat by Pulse 98 99 98 Oximetry 04/23/17 04/23/17 04/23/17 19:10 19:20 19:30 Temperature Pulse Rate 65 65 67 Respiratory 12 17 20 Rate Blood Pressure 140/69 152/78 152/78 Blood Pressure [Left] O2 Sat by Pulse 98 97 97 Oximetry 04/23/17 04/23/17 04/23/17 19:40 19:50 20:00 Temperature Pulse Rate 73 63 65 Respiratory 18 14 26 H Rate Blood Pressure 121/72 155/74 152/78 Blood Pressure [Left] O2 Sat by Pulse 98 99 99 Oximetry 04/23/17 04/23/17 04/23/17 20:10 20:20 20:30 Temperature Pulse Rate 65 67 68 Respiratory 18 10 L 11 L Rate Blood Pressure 170/71 123/66 123/66 Blood Pressure [Left] O2 Sat by Pulse 98 97 97 Oximetry 04/23/17 04/23/17 04/23/17 20:40 20:50 21:00 Temperature Pulse Rate 79 68 65 Respiratory 19 18 21 Rate Blood Pressure 112/70 141/105 124/71 Blood Pressure [Left] O2 Sat by Pulse 98 96 Oximetry 04/23/17 04/23/17 04/23/17 21:10 21:20 21:30 Temperature Pulse Rate 68 61 67 Respiratory 13 23 13 Rate Blood Pressure 124/71 126/104 141/105 Blood Pressure [Left] O2 Sat by Pulse 96 96 97 Oximetry 04/23/17 21:40 Temperature Pulse Rate 63 Respiratory 12 Rate Blood Pressure 124/67 Blood Pressure [Left] O2 Sat by Pulse 98 Oximetry ED Medical Decision Making - Lab Data Result diagrams: 04/24/17 05:42 04/24/17 05:42 Vital Signs 04/23/17 04/23/17 04/23/17 13:31 13:39 13:50 Temperature Pulse Rate 63 Respiratory 16 15 Rate Blood Pressure 114/65 Blood Pressure 131/69 [Left] O2 Sat by Pulse 99 99 Oximetry 04/23/17 04/23/17 04/23/17 14:08 15:35 17:20 Temperature 97.5 F L Pulse Rate 64 56 L 63 Respiratory 15 19 13 Rate Blood Pressure Blood Pressure 123/77 124/71 151/73 [Left] O2 Sat by Pulse 100 99 98 Oximetry 04/23/17 17:30 Temperature Pulse Rate 57 L Respiratory 14 Rate Blood Pressure Blood Pressure 135/74 [Left] O2 Sat by Pulse 99 Oximetry Lab Results 04/23/17 04/23/17 04/23/17 Range/Units 13:45 13:45 13:45 WBC 7.2 (4.5-11.0) K/mm3 RBC 3.74 (3.65-5.03) M/mm3 Hgb 11.5 (10.1-14.3) gm/dl Hct 35.3 (30.3-42.9) % MCV 94 (79-97) fl MCH 31 (28-32) pg MCHC 33 (30-34) % RDW 14.5 (13.2-15.2) % Plt Count 221 (140-440) K/mm3 Lymph % (Auto) 19.4 (13.4-35.0) % [place] % (Auto) 10.1 H (0.0-7.3) % Eos % (Auto) 3.2 (0.0-4.3) % Baso % (Auto) 1.0 (0.0-1.8) % Lymph # 1.4 (1.2-5.4) K/mm3 [place] # 0.7 (0.0-0.8) K/mm3 Eos # 0.2 (0.0-0.4) K/mm3 Baso # 0.1 (0.0-0.1) K/mm3 Seg Neutrophils % 66.3 (40.0-70.0) % Seg Neutrophils # 4.8 (1.8-7.7) K/mm3 Sodium 142 (137-145) mmol/L Potassium 3.9 (3.6-5.0) mmol/L Chloride 106.4 (98-107) mmol/L Carbon Dioxide 24 (22-30) mmol/L Anion Gap 16 mmol/L BUN 13 (7-17) mg/dL Creatinine 0.6 L (0.7-1.2) mg/dL Estimated GFR > 60 ml/min BUN/Creatinine Ratio 21.66 % Glucose 102 H (65-100) mg/dL POC Glucose (70-105) Lactic Acid 1.20 (0.7-2.0) mmol/L Calcium 8.5 (8.4-10.2) mg/dL Magnesium 1.90 (1.7-2.3) mg/dL Total Bilirubin 0.40 (0.1-1.2) mg/dL AST 20 (5-40) units/L ALT 16 (7-56) units/L Alkaline Phosphatase 57 (35-129) units/L Total Creatine Kinase (30-135) units/L Total Protein 5.4 L (6.3-8.2) g/dL Albumin 3.2 L (3.9-5) g/dL Albumin/Globulin Ratio 1.5 % TSH (0.270-4.200) mlU/mL Urine Color (Yellow) Urine Turbidity (Clear) Urine pH (5.0-7.0) Ur Specific [place] (1.003-1.030) Urine Protein (Negative) mg/dL Urine Glucose (UA) (Negative) mg/dL Urine Ketones (Negative) mg/dL Urine Blood (Negative) Urine Nitrite (Negative) Urine Bilirubin (Negative) Urine Urobilinogen (<2.0) mg/dL Ur Leukocyte Esterase (Negative) Urine WBC (Auto) (0.0-6.0) /HPF Urine RBC (Auto) (0.0-6.0) /HPF U Epithel Cells (Auto) (0-13.0) /HPF Urine Mucus /HPF Urine Yeast (Budding) /HPF Salicylates (2.8-20.0) mg/dL Urine Opiates Screen Urine Methadone Screen Acetaminophen (10.0-30.0) ug/mL Ur Barbiturates Screen Ur Phencyclidine Scrn Ur Amphetamines Screen U Benzodiazepines Scrn Urine Cocaine Screen U Marijuana (THC) Screen Drugs of Abuse Note Plasma/Serum Alcohol (0-0.07) gm% 04/23/17 04/23/17 04/23/17 Range/Units 13:45 13:47 13:47 WBC (4.5-11.0) K/mm3 RBC (3.65-5.03) M/mm3 Hgb (10.1-14.3) gm/dl Hct (30.3-42.9) % MCV (79-97) fl MCH (28-32) pg MCHC (30-34) % RDW (13.2-15.2) % Plt Count (140-440) K/mm3 Lymph % (Auto) (13.4-35.0) % [place] % (Auto) (0.0-7.3) % Eos % (Auto) (0.0-4.3) % Baso % (Auto) (0.0-1.8) % Lymph # (1.2-5.4) K/mm3 [place] # (0.0-0.8) K/mm3 Eos # (0.0-0.4) K/mm3 Baso # (0.0-0.1) K/mm3 Seg Neutrophils % (40.0-70.0) % Seg Neutrophils # (1.8-7.7) K/mm3 Sodium (137-145) mmol/L Potassium (3.6-5.0) mmol/L Chloride (98-107) mmol/L Carbon Dioxide (22-30) mmol/L Anion Gap mmol/L BUN (7-17) mg/dL Creatinine (0.7-1.2) mg/dL Estimated GFR ml/min BUN/Creatinine Ratio % Glucose (65-100) mg/dL POC Glucose 113 H (70-105) Lactic Acid (0.7-2.0) mmol/L Calcium (8.4-10.2) mg/dL Magnesium (1.7-2.3) mg/dL Total Bilirubin (0.1-1.2) mg/dL AST (5-40) units/L ALT (7-56) units/L Alkaline Phosphatase (35-129) units/L Total Creatine Kinase (30-135) units/L Total Protein (6.3-8.2) g/dL Albumin (3.9-5) g/dL Albumin/Globulin Ratio % TSH 5.690 H (0.270-4.200) mlU/mL Urine Color (Yellow) Urine Turbidity (Clear) Urine pH (5.0-7.0) Ur Specific [place] (1.003-1.030) Urine Protein (Negative) mg/dL Urine Glucose (UA) (Negative) mg/dL Urine Ketones (Negative) mg/dL Urine Blood (Negative) Urine Nitrite (Negative) Urine Bilirubin (Negative) Urine Urobilinogen (<2.0) mg/dL Ur Leukocyte Esterase (Negative) Urine WBC (Auto) (0.0-6.0) /HPF Urine RBC (Auto) (0.0-6.0) /HPF U Epithel Cells (Auto) (0-13.0) /HPF Urine Mucus /HPF Urine Yeast (Budding) /HPF Salicylates < 0.3 L (2.8-20.0) mg/dL Urine Opiates Screen Urine Methadone Screen Acetaminophen (10.0-30.0) ug/mL Ur Barbiturates Screen Ur Phencyclidine Scrn Ur Amphetamines Screen U Benzodiazepines Scrn Urine Cocaine Screen U Marijuana (THC) Screen Drugs of Abuse Note Plasma/Serum Alcohol (0-0.07) gm% 04/23/17 04/23/17 04/23/17 Range/Units 13:47 13:47 14:07 WBC (4.5-11.0) K/mm3 RBC (3.65-5.03) M/mm3 Hgb (10.1-14.3) gm/dl Hct (30.3-42.9) % MCV (79-97) fl MCH (28-32) pg MCHC (30-34) % RDW (13.2-15.2) % Plt Count (140-440) K/mm3 Lymph % (Auto) (13.4-35.0) % [place] % (Auto) (0.0-7.3) % Eos % (Auto) (0.0-4.3) % Baso % (Auto) (0.0-1.8) % Lymph # (1.2-5.4) K/mm3 [place] # (0.0-0.8) K/mm3 Eos # (0.0-0.4) K/mm3 Baso # (0.0-0.1) K/mm3 Seg Neutrophils % (40.0-70.0) % Seg Neutrophils # (1.8-7.7) K/mm3 Sodium (137-145) mmol/L Potassium (3.6-5.0) mmol/L Chloride (98-107) mmol/L Carbon Dioxide (22-30) mmol/L Anion Gap mmol/L BUN (7-17) mg/dL Creatinine (0.7-1.2) mg/dL Estimated GFR ml/min BUN/Creatinine Ratio % Glucose (65-100) mg/dL POC Glucose (70-105) Lactic Acid (0.7-2.0) mmol/L Calcium (8.4-10.2) mg/dL Magnesium (1.7-2.3) mg/dL Total Bilirubin (0.1-1.2) mg/dL AST (5-40) units/L ALT (7-56) units/L Alkaline Phosphatase (35-129) units/L Total Creatine Kinase (30-135) units/L Total Protein (6.3-8.2) g/dL Albumin (3.9-5) g/dL Albumin/Globulin Ratio % TSH (0.270-4.200) mlU/mL Urine Color Yellow (Yellow) Urine Turbidity Clear (Clear) Urine pH 7.0 (5.0-7.0) Ur Specific [place] 1.011 (1.003-1.030) Urine Protein <15 mg/dl (Negative) mg/dL Urine Glucose (UA) Neg (Negative) mg/dL Urine Ketones Neg (Negative) mg/dL Urine Blood Neg (Negative) Urine Nitrite Neg (Negative) Urine Bilirubin Neg (Negative) Urine Urobilinogen < 2.0 (<2.0) mg/dL Ur Leukocyte Esterase Lg (Negative) Urine WBC (Auto) 20.0 H (0.0-6.0) /HPF Urine RBC (Auto) 2.0 (0.0-6.0) /HPF U Epithel Cells (Auto) 9.0 (0-13.0) /HPF Urine Mucus Few /HPF Urine Yeast (Budding) Few /HPF Salicylates (2.8-20.0) mg/dL Urine Opiates Screen Urine Methadone Screen Acetaminophen < 15.0 (10.0-30.0) ug/mL Ur Barbiturates Screen Ur Phencyclidine Scrn Ur Amphetamines Screen U Benzodiazepines Scrn Urine Cocaine Screen U Marijuana (THC) Screen Drugs of Abuse Note Plasma/Serum Alcohol < 0.01 (0-0.07) gm% 04/23/17 04/23/17 04/23/17 Range/Units 14:07 16:38 16:50 WBC (4.5-11.0) K/mm3 RBC (3.65-5.03) M/mm3 Hgb (10.1-14.3) gm/dl Hct (30.3-42.9) % MCV (79-97) fl MCH (28-32) pg MCHC (30-34) % RDW (13.2-15.2) % Plt Count (140-440) K/mm3 Lymph % (Auto) (13.4-35.0) % [place] % (Auto) (0.0-7.3) % Eos % (Auto) (0.0-4.3) % Baso % (Auto) (0.0-1.8) % Lymph # (1.2-5.4) K/mm3 [place] # (0.0-0.8) K/mm3 Eos # (0.0-0.4) K/mm3 Baso # (0.0-0.1) K/mm3 Seg Neutrophils % (40.0-70.0) % Seg Neutrophils # (1.8-7.7) K/mm3 Sodium (137-145) mmol/L Potassium (3.6-5.0) mmol/L Chloride (98-107) mmol/L Carbon Dioxide (22-30) mmol/L Anion Gap mmol/L BUN (7-17) mg/dL Creatinine (0.7-1.2) mg/dL Estimated GFR ml/min BUN/Creatinine Ratio % Glucose (65-100) mg/dL POC Glucose (70-105) Lactic Acid 0.90 (0.7-2.0) mmol/L Calcium (8.4-10.2) mg/dL Magnesium 2.00 (1.7-2.3) mg/dL Total Bilirubin (0.1-1.2) mg/dL AST (5-40) units/L ALT (7-56) units/L Alkaline Phosphatase (35-129) units/L Total Creatine Kinase 35 (30-135) units/L Total Protein (6.3-8.2) g/dL Albumin (3.9-5) g/dL Albumin/Globulin Ratio % TSH (0.270-4.200) mlU/mL Urine Color (Yellow) Urine Turbidity (Clear) Urine pH (5.0-7.0) Ur Specific [place] (1.003-1.030) Urine Protein (Negative) mg/dL Urine Glucose (UA) (Negative) mg/dL Urine Ketones (Negative) mg/dL Urine Blood (Negative) Urine Nitrite (Negative) Urine Bilirubin (Negative) Urine Urobilinogen (<2.0) mg/dL Ur Leukocyte Esterase (Negative) Urine WBC (Auto) (0.0-6.0) /HPF Urine RBC (Auto) (0.0-6.0) /HPF U Epithel Cells (Auto) (0-13.0) /HPF Urine Mucus /HPF Urine Yeast (Budding) /HPF Salicylates (2.8-20.0) mg/dL Urine Opiates Screen Presumptive negative Urine Methadone Screen Presumptive negative Acetaminophen (10.0-30.0) ug/mL Ur Barbiturates Screen Presumptive negative Ur Phencyclidine Scrn Presumptive negative Ur Amphetamines Screen Presumptive negative U Benzodiazepines Scrn Presumptive negative Urine Cocaine Screen Presumptive negative U Marijuana (THC) Screen Presumptive negative Drugs of Abuse Note Disclamer Plasma/Serum Alcohol (0-0.07) gm% - EKG Data -: EKG Interpreted by Me Rate: bradycardia - EKG Data When compared to previous EKG there are: no significant change 04/23/17 18:33 sinus bradycardia, 55 bpm, motion artifact, low voltage, incomplete right bundle branch block, poor R-wave progression, abnormal EKG, not morphologically consistent with stemi - Radiology Data Radiology results: report reviewed, image reviewed interpreted by me: X-ray the chest is negative, rotated, hyperinflated, no acute disease. Noncontrast CT scan of the brain is negative for acute findings. Chronic changes noted. - Medical Decision Making Differential diagnosis: Hypothyroidism, transient ischemic attack, pneumonia, urinary tract infection Assessment and plan: 71-year-old female with an episode of altered mental status , now mostly resolved as per her son. Patient is alert to name, place, month, location, has a GCS of 15, with an NIH score of 0. She is clinically sober at this time, and therefore not a TPA candidate given NIH score of 0. Noncontrast CT scan of the brain is negative, laboratory studies suggest urinary tract infection and hypothyroidism. She is afebrile and tolerating liquid feeds. She is presented to the hospital physician, Dr. Lovell, who accepts the patient for UTI and presumed TIA. Critical care attestation.: If time is entered above; I have spent that time in minutes in the direct care of this critically ill patient, excluding procedure time. ED Disposition Clinical Impression: Altered mental status Hypothyroidism Qualifiers: Hypothyroidism type: acquired Qualified Code(s): E03.9 - Hypothyroidism, unspecified UTI (urinary tract infection) Qualifiers: Urinary tract infection type: acute cystitis Disposition: OP ADMIT IP TO THIS HOSP Is pt being admited?: Yes Condition: Good
--- NOTE | 2017-04-23 18:22 | Cat Scan Report ---
FINAL REPORT PROCEDURE: CT HEAD/BRAIN WO CON TECHNIQUE: Computerized tomography of the head was performed without contrast material. HISTORY: ams COMPARISON: Head CT dated April 15, 2017 FINDINGS: Visualized portions of the paranasal sinuses and mastoid air cells are clear. Motion slightly limits evaluation at the vertex of the skull and brain. No calvarial fracture is seen. Cerebral ventricles are normal in size. Chronic small vessel ischemic changes are seen in the lizabeth, similar to prior study. No acute intracranial hemorrhage or mass effect is seen. IMPRESSION: Motion slightly limits evaluation of the vertex of the skull and brain. No acute abnormality is seen.
[2017-04-23] MEDS ORDERED: BABY ASPIRIN PO ONE (18:36)
[2017-04-23] MEDS ORDERED: ANTIVERT PO PRN (20:58)
--- NOTE | 2017-04-23 20:58 | History and Physical Report ---
History of Present Illness Date of examination: 04/23/17 Date of admission: 04/23/17 Chief complaint: Decreased responsiveness and Rt weakness for 1 to 2 minutes. History of present illness: History of Present Illness This is a 71-year-old female with past medical history of hypothyroidism, arthritis, DJD and COPD comes in for an episode of unresponsiveness, drooling, slurred speech. This lasted for a few minutes. It is mostly resolved.Corroborated by her son. He reports that the patient is typically conversant, and requires minimal assistance with activities of daily living. He further reports that the patient walks with a walker at baseline. She denies chest pain, shortness of breath, abdominal pain, focal weakness/numbness , irritative /obstructive urinary symptoms.Patient was recently admitted for Syncope about 2 weeks ago and had ECHO and CDS which were WNL -: Sudden Severity scale (0 -10): 0 Consistency: now resolved Improves with: none Worsens with: none Associated Symptoms: confusion, weakness Past Medical History Previous Medical History?: Yes Hx Arthritis: Yes Hx COPD: Yes Hx HIV: No Additional medical history: Hypothyroidism - Surgical History Additional Surgical History: left wrist, fracture repair. - Social History Smoking Status: Current Every Day Smoker Fam HX HTN - Medications Home Medications: Home Medications Medication Instructions Recorded Confirmed Last Taken Type Alendronate Sodium [Fosamax] 70 mg PO QWEEK 04/15/17 04/23/17 04/15/17 History Ergocalciferol(Vitamin D2)(Nf) 400 unit PO DAILY 04/15/17 04/23/17 04/15/17 History [Vitamin D (Nf)] Levothyroxine [Synthroid] 100 mcg PO QAM 04/15/17 04/23/17 04/15/17 History Omeprazole Magnesium [PriLOSEC Otc] 40 mg PO QDAY 04/15/17 04/23/17 04/15/17 History Tiotropium [Spiriva] 18 mcg IH QDAY 04/15/17 04/23/17 04/15/17 History Meclizine [Antivert] 12.5 mg PO BID PRN #20 tablet 04/17/17 04/23/17 Unknown Rx Nicotine [Habitrol] 7 mg TD DAILY #30 patch 04/17/17 04/23/17 Unknown Rx Allergies Allergy/AdvReac Type Severity Reaction Status Date / Time cephalexin monohydrate Allergy Hives Verified 04/15/17 21:11 [From Keflex] ED Review of Systems ROS: Stated complaint: AMS Other details as noted in HPI Medications and Allergies Allergies Allergy/AdvReac Type Severity Reaction Status Date / Time cephalexin monohydrate Allergy Hives Verified 04/15/17 21:11 [From Keflex] Home Medications Medication Instructions Recorded Confirmed Last Taken Type Alendronate Sodium [Fosamax] 70 mg PO QWEEK 04/15/17 04/23/17 04/15/17 History Ergocalciferol(Vitamin D2)(Nf) 400 unit PO DAILY 04/15/17 04/23/17 04/15/17 History [Vitamin D (Nf)] Levothyroxine [Synthroid] 100 mcg PO QAM 04/15/17 04/23/17 04/15/17 History Omeprazole Magnesium [PriLOSEC Otc] 40 mg PO QDAY 04/15/17 04/23/17 04/15/17 History Tiotropium [Spiriva] 18 mcg IH QDAY 04/15/17 04/23/17 04/15/17 History Meclizine [Antivert] 12.5 mg PO BID PRN #20 tablet 04/17/17 04/23/17 Unknown Rx Nicotine [Habitrol] 7 mg TD DAILY #30 patch 04/17/17 04/23/17 Unknown Rx Exam - Physical Exam Narrative exam: In no acute distress - Constitutional Vitals: Temp Pulse Resp BP Pulse Ox 97.5 F L 65 14 145/73 98 04/23/17 14:08 04/23/17 19:02 04/23/17 19:02 04/23/17 19:02 04/23/17 19:02 General appearance: Present: no acute distress, well-nourished - EENT Eyes: Present: PERRL ENT: hearing intact, clear oral mucosa - Neck Neck: Present: supple, normal ROM - Respiratory Respiratory effort: normal Respiratory: bilateral: CTA, rhonchi (occasionally) - Cardiovascular Heart rate: 70 Rhythm: regular Heart Sounds: Present: S1 & S2. Absent: rub, click - Extremities Extremities: no ischemia, pulses intact, pulses symmetrical, No edema Peripheral Pulses: within normal limits - Abdominal General gastrointestinal: Present: soft, non-tender, non-distended, normal bowel sounds Female genitourinary: Present: deferred, normal - Rectal Rectal Exam: deferred - Integumentary Integumentary: Present: clear, warm, dry - Musculoskeletal Musculoskeletal: gait normal, strength equal bilaterally - Psychiatric Psychiatric: appropriate mood/affect, intact judgment & insight - Neurologic Neurologic: CNII-XII intact, moves all extremities - Allied Health Allied health notes reviewed: nursing, case management Results - Labs CBC & Chem 7: 04/24/17 05:42 04/24/17 05:42 Labs: Laboratory Last Values WBC 7.2 K/mm3 (4.5-11.0) 04/23/17 13:45 RBC 3.74 M/mm3 (3.65-5.03) 04/23/17 13:45 Hgb 11.5 gm/dl (10.1-14.3) 04/23/17 13:45 Hct 35.3 % (30.3-42.9) 04/23/17 13:45 MCV 94 fl (79-97) 04/23/17 13:45 MCH 31 pg (28-32) 04/23/17 13:45 MCHC 33 % (30-34) 04/23/17 13:45 RDW 14.5 % (13.2-15.2) 04/23/17 13:45 Plt Count 221 K/mm3 (140-440) 04/23/17 13:45 Lymph % (Auto) 19.4 % (13.4-35.0) 04/23/17 13:45 [place] % (Auto) 10.1 % (0.0-7.3) H 04/23/17 13:45 Eos % (Auto) 3.2 % (0.0-4.3) 04/23/17 13:45 Baso % (Auto) 1.0 % (0.0-1.8) 04/23/17 13:45 Lymph # 1.4 K/mm3 (1.2-5.4) 04/23/17 13:45 [place] # 0.7 K/mm3 (0.0-0.8) 04/23/17 13:45 Eos # 0.2 K/mm3 (0.0-0.4) 04/23/17 13:45 Baso # 0.1 K/mm3 (0.0-0.1) 04/23/17 13:45 Seg Neutrophils % 66.3 % (40.0-70.0) 04/23/17 13:45 Seg Neutrophils # 4.8 K/mm3 (1.8-7.7) 04/23/17 13:45 Sodium 142 mmol/L (137-145) 04/23/17 13:45 Potassium 3.9 mmol/L (3.6-5.0) 04/23/17 13:45 Chloride 106.4 mmol/L (98-107) 04/23/17 13:45 Carbon Dioxide 24 mmol/L (22-30) 04/23/17 13:45 Anion Gap 16 mmol/L 04/23/17 13:45 BUN 13 mg/dL (7-17) 04/23/17 13:45 Creatinine 0.6 mg/dL (0.7-1.2) L 04/23/17 13:45 Estimated GFR > 60 ml/min 04/23/17 13:45 BUN/Creatinine Ratio 21.66 % 04/23/17 13:45 Glucose 102 mg/dL (65-100) H 04/23/17 13:45 POC Glucose 113 (70-105) H 04/23/17 13:45 Lactic Acid 0.90 mmol/L (0.7-2.0) 04/23/17 16:38 Calcium 8.5 mg/dL (8.4-10.2) 04/23/17 13:45 Magnesium 2.00 mg/dL (1.7-2.3) 04/23/17 16:50 Total Bilirubin 0.40 mg/dL (0.1-1.2) 04/23/17 13:45 AST 20 units/L (5-40) 04/23/17 13:45 ALT 16 units/L (7-56) 04/23/17 13:45 Alkaline Phosphatase 57 units/L (35-129) 04/23/17 13:45 Total Creatine Kinase 35 units/L (30-135) 04/23/17 16:50 Total Protein 5.4 g/dL (6.3-8.2) L 04/23/17 13:45 Albumin 3.2 g/dL (3.9-5) L 04/23/17 13:45 Albumin/Globulin Ratio 1.5 % 04/23/17 13:45 TSH 5.690 mlU/mL (0.270-4.200) H 04/23/17 13:47 Urine Color Yellow (Yellow) 04/23/17 14:07 Urine Turbidity Clear (Clear) 04/23/17 14:07 Urine pH 7.0 (5.0-7.0) 04/23/17 14:07 Ur Specific [place] 1.011 (1.003-1.030) 04/23/17 14:07 Urine Protein <15 mg/dl mg/dL (Negative) 04/23/17 14:07 Urine Glucose (UA) Neg mg/dL (Negative) 04/23/17 14:07 Urine Ketones Neg mg/dL (Negative) 04/23/17 14:07 Urine Blood Neg (Negative) 04/23/17 14:07 Urine Nitrite Neg (Negative) 04/23/17 14:07 Urine Bilirubin Neg (Negative) 04/23/17 14:07 Urine Urobilinogen < 2.0 mg/dL (<2.0) 04/23/17 14:07 Ur Leukocyte Esterase Lg (Negative) 04/23/17 14:07 Urine WBC (Auto) 20.0 /HPF (0.0-6.0) H 04/23/17 14:07 Urine RBC (Auto) 2.0 /HPF (0.0-6.0) 04/23/17 14:07 U Epithel Cells (Auto) 9.0 /HPF (0-13.0) 04/23/17 14:07 Urine Mucus Few /HPF 04/23/17 14:07 Urine Yeast (Budding) Few /HPF 04/23/17 14:07 Salicylates < 0.3 mg/dL (2.8-20.0) L 04/23/17 13:47 Urine Opiates Screen Presumptive negative 04/23/17 14:07 Urine Methadone Screen Presumptive negative 04/23/17 14:07 Acetaminophen < 15.0 ug/mL (10.0-30.0) 04/23/17 13:47 Ur Barbiturates Screen Presumptive negative 04/23/17 14:07 Ur Phencyclidine Scrn Presumptive negative 04/23/17 14:07 Ur Amphetamines Screen Presumptive negative 04/23/17 14:07 U Benzodiazepines Scrn Presumptive negative 04/23/17 14:07 Urine Cocaine Screen Presumptive negative 04/23/17 14:07 U Marijuana (THC) Screen Presumptive negative 04/23/17 14:07 Drugs of Abuse Note Disclamer 04/23/17 14:07 Plasma/Serum Alcohol < 0.01 gm% (0-0.07) 04/23/17 13:47 Short CBC 04/23/17 04/24/17 Range/Units 13:45 05:42 WBC 7.2 6.5 (4.5-11.0) K/mm3 Hgb 11.5 11.8 (10.1-14.3) gm/dl Hct 35.3 35.7 (30.3-42.9) % Plt Count 221 224 (140-440) K/mm3 BMP 04/23/17 04/24/17 13:45 05:42 Sodium 142 145 Potassium 3.9 3.2 L Chloride 106.4 107.9 H Carbon Dioxide 24 24 BUN 13 10 Creatinine 0.6 L 0.5 L Glucose 102 H 89 Calcium 8.5 9.1 Cardiac Enzymes 04/23/17 Range/Units 16:50 Total Creatine Kinase 35 (30-135) units/L Liver Function 04/23/17 04/24/17 Range/Units 13:45 05:42 Total Bilirubin 0.40 0.50 (0.1-1.2) mg/dL AST 20 17 (5-40) units/L ALT 16 14 (7-56) units/L Alkaline Phosphatase 57 61 (35-129) units/L Albumin 3.2 L 3.4 L (3.9-5) g/dL Urine 04/23/17 Range/Units 14:07 Urine Color Yellow (Yellow) Urine pH 7.0 (5.0-7.0) Ur Specific [place] 1.011 (1.003-1.030) Urine Protein <15 mg/dl (Negative) mg/dL Urine Glucose (UA) Neg (Negative) mg/dL - Imaging and Cardiology EKG: report reviewed CT Scan - head: report reviewed Assessment and Plan Advance Directives: Yes (Full code) VTE prophylaxis?: Chemical Plan of care discussed with patient/family: Yes - Patient Problems (1) TIA (transient ischemic attack) Current Visit: Yes Status: Acute Qualifiers: Transient cerebral ischemia type: T Plan to address problem: Resolved.Cont Plavix 75 mgpo qd at discharge to prevent further TIA's and CVA> Can still happen but recurrences will be less. (2) Hypothyroidism Current Visit: Yes Status: Chronic Qualifiers: Hypothyroidism type: acquired Qualified Code(s): E03.9 - Hypothyroidism, unspecified Plan to address problem: Cont Synthyoid at 100 mcg (3) UTI (urinary tract infection) Current Visit: Yes Status: Acute Qualifiers: Urinary tract infection type: acute cystitis Hematuria presence: H Indwelling urinary catheter type: I Encounter type: E Plan to address problem: IV rocephin for now (4) COPD (chronic obstructive pulmonary disease) Current Visit: Yes Status: Chronic Qualifiers: COPD type: C Chronic bronchitis type: C Emphysema type: unspecified Qualified Code(s): J43.9 - Emphysema, unspecified Plan to address problem: Cont SPiriva (5) DVT prophylaxis Current Visit: Yes Status: Acute Plan to address problem: OnLovenox 40 mg sq qd (6) Nicotine dependence Current Visit: Yes Status: Chronic Qualifiers: Nicotine product type: cigarettes Substance use status: S Plan to address problem: Patient counselled and Nicoderm patch prescribed
[2017-04-23] MEDS ORDERED: NON-FORMULARY (Omeprazole Magnesium [Prilosec Otc] 40 MG) PO SCH (21:00)
[2017-04-23] MEDS ORDERED: DULCOLAX PR PRN (21:01)
[2017-04-23] MEDS ORDERED: DILAUDID IV PRN (21:01)
[2017-04-23] MEDS ORDERED: PERCOCET 5/325 PO PRN (21:01)
[2017-04-23] MEDS ORDERED: AMBIEN PO PRN (21:01)
[2017-04-23] MEDS ORDERED: MILK OF MAGNESIA PO PRN (21:01)
[2017-04-23] MEDS ORDERED: ZOFRAN IV PRN (21:01)
[2017-04-23] MEDS: HABITROL TD SCH (21:48)
[2017-04-23] MEDS: D5NS 1,000 ML IV SCH (23:40)
[2017-04-23] MEDS: PLAVIX PO SCH (23:46)
[2017-04-23] MEDS: SPIRIVA IH SCH (23:47)
[2017-04-23] MEDS: PROTONIX PO SCH (23:47)
[2017-04-24] MEDS: TYLENOL PO PRN ×3 (00:39→21:40)
[2017-04-24] MEDS: SYNTHROID PO SCH (05:26)
[2017-04-24 06:12] LABS: Basophils % (Auto) 1.2 % (0.0-1.8); Eosinophils % (Auto) 4.7 % (0.0-4.3); Hematocrit 35.7 % (30.3-42.9); Hemoglobin 11.8 gm/dl (10.1-14.3); Mean Corpuscular HGB Conc 33 % (30-34); Mean Corpuscular Hemoglobin 31 pg (28-32); Mean Corpuscular Volume 94 fl (79-97); Platelet Count 224 K/mm3 (140-440); Red Blood Count 3.79 M/mm3 (3.65-5.03); Red Cell Distribution Width 14.6 % (13.2-15.2); White Blood Count 6.5 K/mm3 (4.5-11.0)
[2017-04-24 06:31] LABS: Blood Urea Nitrogen 10 mg/dL (7-17); Calcium 9.1 mg/dL (8.4-10.2); Carbon Dioxide 24 mmol/L (22-30); Glucose 89 mg/dL (65-100)
[2017-04-24 06:32] LABS: Alanine Aminotransferase 14 units/L (7-56); Albumin 3.4 g/dL (3.9-5); Albumin/Globulin Ratio 1.3 %; Alkaline Phosphatase 61 units/L (35-129); Anion Gap 16 mmol/L; Chloride 107.9 mmol/L (98-107); Potassium 3.2 mmol/L (3.6-5.0); Sodium 145 mmol/L (137-145)
[2017-04-24] MEDS: PROTONIX PO SCH (09:13)
[2017-04-24] MEDS: PLAVIX PO SCH (09:13)
--- NOTE | 2017-04-24 09:45 | XRay Report ---
PORTABLE CHEST INDICATION: Altered mental status. Evaluate for pneumonia. COMPARISON: None similar. FINDINGS: Portable, frontal chest radiograph demonstrates patient rotation to the left with grossly normal cardiomediastinal silhouette. Mildly hyperinflated lungs with somewhat prominent markings centrally and toward the bases. Mild biapical scarring/pleural thickening, right greater than left. No large pleural effusions or CHF. EKG leads. Demineralized bones. Mild thoracic dextroscoliosis. CONCLUSION: No definite acute chest process with possible COPD, as described. Thank you for the opportunity to participate in this patient's care.
--- NOTE | 2017-04-24 12:52 | Admit Criteria Form ---
Admission Criteria Documentation: NEUROLOGY GRG Clinical Indications for Admission to Inpatient Care (Place ' X' for any and all applicable criteria): Hospital admission is needed for appropriate care of the patient because of 1 or more of the following: [ ]I. Encephalitis [ ]II. Severe BUN PANNER infections indicated by 1 or more of the following(1)(2)(3) : [ ]a) Intracranial abscess [ ]b) Spinal abscess or myelitis [ ]c) Tuberculous or other nonbacterial, nonviral BUN PANNER infection(8) [ ]III. Vasculitis and 1 or more of the following(14)(15): []a) Altered mental status that is severe or persistent or other acute neurologic change []b) Psychosis []c) Seizure [ ]IV. Status epilepticus or repetitive seizures not controlled with emergent treatment [A] (7)(8) [ ]V. Altered mental status that is severe or persistent [ ]. Transient alteration in consciousness with high-risk etiology; examples include (12)(13): [ ]a) Cardiovascular source [ ]b) Cataplexy [ ]VII. Cerebral aneurysm requiring ANY ONE of the following(14): [ ]a) IV antihypertensives or vasoactive agents [ ]b) Sedation and analgesia for suspected leak [ ]c) Need for external ventricular drainage and cerebral perfusion pressure monitoring [ ]d) Emergent evaluation to determine need for surgical clipping or endovascular coiling by interventional radiology. If surgery is required ( Also use Craniotomy, Supratentorial, for Surgery of Bleeding Intracranial Aneurysm (for bleeding aneurysm) or Craniotomy, Supratentorial (for nonbleeding aneurysm) as appropriate. [ ]VIII. New-onset severe neurologic symptom requiring inpatient care indicated by ANY ONE of the following: [ ]a) Aphasia(15) [ ]b) Weakness (grade 3 or less) [ ]c) Paralysis (eg, hemiplegia) [ ]d) Spasticity(16) [ ]e) Dystonia [ ]e) Ataxia(17) [ ]f) Amnesia(18) [ ]g) Involuntary movements(19) [ ]h) Vertigo [ ] Visual loss [ ]i) Other severe neurologic finding (eg, papilledema, mass effect on imaging, myoclonus not treatable at alternative level of care (eg, observation care) [ ]IX. Guillain-[place] syndrome(20) [ ]X. Myasthenia gravis crisis or inpatient monitoring need as indicated by 1 or more of the following(21): [ ]a) Intensive treatment (eg, course of plasmapheresis) with inadequate outpatient situation to monitor patients status [ ]b) Inadequate airway protection [ ]c) Respiratory insufficiency requiring intubation or inpatient. monitoring [ ]d) Progressive dysphagia with failure to thrive [ ]XI. Multiple sclerosis or other acute demyelinating disease requiring inpatient care as indicated by 1 or more of the following (22)(23): [ ]a) Acute severe deterioration requiring inpatient treatment (eg, IV steroids, plasmapheresis, close observation) [ ]b) Acute complication requiring inpatient care (eg, sepsis, severe decubitus, aspiration) [ ]XII.Parkinson disease requiring inpatient care (Also use Optimal Recovery Care Criteria or General Recovery Criteria as appropriate) indicated by 1 or more of the following(25): [ ]a) Infection (eg, aspiration pneumonia) not treatable at alternative level of care [ ]b Dehydration that is severe or persistent [ ]c) Life-threatening agitation or psychotic behavior not treatable on emergency, observation care, or alternative level (eg, residential) basis [ ]d) Severe medication withdrawal effects (eg, freezing, neuroleptic malignant syndrome) not responsive to emergency and observation care treatment ( as appropriate) [ ]e) Other severe manifestation not treatable at alternative level of care [ ]XII. Amyotrophic lateral sclerosis with inpatient care needs as indicated by ANY ONE of the following(26): [ ]a) Acute complications (eg, aspiration pneumonia, sepsis ) requiring inpatient care ( see other optimal Recovery Guideline as appropriate) [ ]b) Dehydration that is severe persistent AND artificial support desired [ ]c) Inadequate airway protection AND artificial support desired [ ]d) Severe ventilatory insufficiency AND artificial support desired [ ]XIII. Myasthenia gravis crisis or inpatient monitoring need as indicated by 1 or more of the following(21): [] a) Inadequate airway protection []b) Respiratory insufficiency requiring intubation or inpatient monitoring []c) Progressive dysphagia with failure to thrive []d) Intensive treatment (e.g., course of plasmapheresis) with inadequate outpatient situation to monitor patients status [ ]XIV. Multiple sclerosis or other acute demyelinating disease requiring inpatient care indicated by 1 or more of the following[C](36)(43)(44)(45)(46): []a) Acute severe deterioration requiring inpatient treatment (eg, IV steroids, plasmapheresis, close observation) []b) Acute complication requiring inpatient care (eg, sepsis, severe decubitus, aspiration) [ ]XV. Intracranial hypertension (e.g., pseudotumor cerebri) requiring inpatient care (e.g., acute visual loss, inadequate oral intake) (47)(48)(49) [ ]XVI. Parkinson disease requiring inpatient care (Also use Optimal Recovery Care Criteria or General Recovery Criteria as appropriate) indicated by 1 or more of the following(25): [] a) Infection (e.g., aspiration pneumonia) not treatable at alternative level of care []b) Volume depletion not responsive to emergency and observation care treatment (as appropriate) []c) Life-threatening agitation or psychotic behavior not treatable on emergency, observation care, or alternative level (e.g., residential) basis []d) Severe medication withdrawal effects (e.g., freezing, neuroleptic malignant syndrome) not responsive to emergency and observation care treatment (as appropriate) []e) Other severe manifestation not treatable at alternative level of care [ ]XVII. Amyotrophic lateral sclerosis with inpatient care needs as indicated by1 or more of the following(42): []a) Acute complications (eg, aspiration pneumonia, sepsis) requiring inpatient care (see other Optimal Recovery Guideline or General Recovery Guideline as appropriate) []b) Dehydration that is severe or persistent AND artificial support desired []c) Inadequate airway protection AND artificial support desired []d) Severe ventilatory insufficiency AND artificial support desired [ ]XVIII. Severe myopathy, neuropathy, or other neuromuscular disease indicated by 1 or more of the following(42)(52)(53)(54): []a ) New-onset severe diffuse weakness (eg, strength 3/5 or less) []b) Severe dysphagia []c) Dyspnea at rest or with minimal exertion (new) []d) Inadequate airway protection []e) Inadequate ventilation indicated by 1 or more of the following : i) Partial pressure of carbon dioxide greater than 44 mm Hg ( 5.9 kPa) (new) ii) Reduced peak expiratory flow rate (new) iii) Vital capacity less than 50% of predicted (less than 15 mL/kg) iv) Peak inspiratory force less negative than -30 cm H2O (- 2942 Pa) [ ]XVII.Complications of congenital or degenerative disease (eg, infection, seizures, dehydration, injury) not responsive to emergency and observation care treatment (as appropriate ) [C](16)(29)(30) [ ]XVIII.Suspected or confirmed nerve or muscle toxic injury, including ANY ONE of the following: [ ]a) Rhabdomyolysis(31) i) Acute renal failure ii) Dehydration that is severe or persistent iii) Altered mental status that is severe or persistent iv) Electrolyte abnormality that remains after emergency or observation level care ( as appropriate) [ ]b) Botulism(32) [ ]c) Other severe toxin-induced sign or symptom [ ]XIX. Neurologic trauma requiring inpatient treatment (medical) indicated by ANY ONE of the following(33)(34): [ ]a) Vital signs or neurologic signs more frequently than every 4 hours [ ]b) Hyperosmolar therapy [ ]c) Respiratory monitoring [ ]d) Intracranial pressure monitoring and treatment [ ]e) Stabilization and immobilization device placement (eg, braces, body jacket) [ ]f) Intubation & mechanical ventilation for airway protection or therapeutic hyperventilation [ ]g) Other treatment or monitoring needed that requires inpatient level of care [ ]XX.Complications of neurologic devices (eg, ventricular shunt, neurostimulator) requiring 1 or more of the following(35)(36): [ ]a) IV antibiotics with monitoring while awaiting culture results [ ]b) Monitoring for hydrocephalus [ X]XXI. Neurology condition symptom, or finding for which emergency and observation care have failed or are not considered appropriate. See General Criteria: Observation Care ISC, General Admission Criteria GRG, or Pediatric General Admission Criteria GRG guideline as appropriate. The original [facility] [employer] content created by [email or web address] has been revised. The portions of the content which have been revised are identified through the use of italic text or in bold, and [facility] has neither reviewed nor approved the modified material. All other unmodified content is copyright [facility] Please see references footnoted in the original [facility] edition 2016 Admission Criteria Met: Yes
[2017-04-24] MEDS: SPIRIVA IH SCH (13:08)
--- NOTE | 2017-04-24 13:20 | Magnetic Resonance Report ---
MRI BRAIN WITHOUT CONTRAST INDICATION: TIA. COMPARISON: Yesterday's head CT. FINDINGS: Noncontrast multiplanar and multisequence MRI of the brain demonstrates approximately 6 mm left inferior ganglionic restricted diffusion focus, axial series 4, image 18. Another similar focus in the left cerebellar hemisphere anteromedially also noted, axial image 9, though nonspecific for acute infarct versus artifactual. No other acute infarct, hemorrhage, mass effect or midline shift. No abnormal extra-axial fluid collections. Normal major intracranial vascular flow-voids. Symmetric, age-appropriate ventricles and sulci. Mild periventricular FLAIR and T2 weighted hyperintensities. Approximately 9 mm right paramidline pontine lacunar infarct. Otherwise normal posterior fossa with preserved basilar cisterns and symmetric seventh and eighth nerve complexes. Normal eye globes. Slight rightward nasal septal bowing. Mild right ethmoid sinusitis anteriorly. Right mastoiditis also noted. Clear remainder imaged paranasal sinuses and left mastoid air cells. Normal midline structures without evidence of Chiari malformation. CONCLUSION: Small left inferior ganglionic and questionable left cerebellar acute infarct with age-appropriate atrophy, microvascular changes and mild right ethmoid sinusitis and mastoiditis, as described. Thank you for the opportunity to participate in this patient's care.
--- NOTE | 2017-04-24 13:21 | Magnetic Resonance Report ---
MRA HEAD WITHOUT CONTRAST INDICATION: TIA. COMPARISON: None similar. FINDINGS: MRA of the head performed without intravenous contrast and demonstrates no evidence of flow-limiting stenosis, occlusion or vascular malformation. Please note that detection of aneurysms less than 5 mm is limited on this exam. Posterior communicating artery noted on the right, though may be aplastic on the left. CONCLUSION: Normal study of the unga of [place]. Thank you for the opportunity to participate in this patient's care.
[2017-04-24] MEDS: ROCEPHIN/NS 2 GM/100 ML 2 GM/100 ML BAG IV SCH (13:58)
[2017-04-24] MEDS ORDERED: K-DUR PO ONE (15:46)
[2017-04-24] MEDS: D5NS 1,000 ML IV SCH (17:10)
--- NOTE | 2017-04-24 19:29 | Progress Note ---
Assessment and Plan Assessment and plan: 71-year-old female presenting with loss of consciousness, episode of drooling and slurred speech 1. Acute CVA CT head with no acute abnormality, but brain MRI showing small left inferior ganglionic and question left cerebral acute infarcts Started on antiplatelet therapy, Plavix Add statin PT/OT/ST 2. UTI UA sugestive of UTI Urine culture obtained and started on Rocephin 3. COPD Continue inhaled bronchodilators, as needed supplemental oxygen 4. Nicotine dependence Nicotine patch Counseled regarding importance of quitting 5. Hypothyroidism Continue Synthroid 6. DVT prophylaxis History Interval history: c/o fatigue and generalized weakness, difficulty finding her words Hospitalist Physical - Constitutional Vitals: Temp Pulse Resp BP Pulse Ox 98.2 F 45 L 20 147/75 94 04/24/17 10:01 04/24/17 10:01 04/24/17 10:04/24/17 10:01 04/23/17 22:44 General appearance: Present: no acute distress, cachectic - EENT Eyes: Present: PERRL, EOM intact. Absent: scleral icterus, conjunctival injection ENT: hearing intact, clear oral mucosa, no oropharyngeal erythema, no thrush - Neck Neck: Present: supple, normal ROM. Absent: masses or JVD - Respiratory Respiratory effort: normal Respiratory: bilateral: CTA, negative: rhonchi, wheezing - Cardiovascular Rhythm: regular Heart Sounds: Present: S1 & S2. Absent: systolic murmur - Extremities Extremities: no ischemia - Abdominal General gastrointestinal: soft, non-tender, non-distended, normal bowel sounds - Integumentary Integumentary: Present: warm, dry. Absent: jaundice, rash - Psychiatric Psychiatric: cooperative - Neurologic Neurologic: no focal deficits, other (speech slightly slurred) Results - Labs CBC & Chem 7: 04/24/17 05:42 04/25/17 05:12 Labs: Laboratory Last Values WBC 6.5 K/mm3 (4.5-11.0) 04/24/17 05:42 RBC 3.79 M/mm3 (3.65-5.03) 04/24/17 05:42 Hgb 11.8 gm/dl (10.1-14.3) 04/24/17 05:42 Hct 35.7 % (30.3-42.9) 04/24/17 05:42 MCV 94 fl (79-97) 04/24/17 05:42 MCH 31 pg (28-32) 04/24/17 05:42 MCHC 33 % (30-34) 04/24/17 05:42 RDW 14.6 % (13.2-15.2) 04/24/17 05:42 Plt Count 224 K/mm3 (140-440) 04/24/17 05:42 Lymph % (Auto) 30.0 % (13.4-35.0) 04/24/17 05:42 [place] % (Auto) 10.6 % (0.0-7.3) H 04/24/17 05:42 Eos % (Auto) 4.7 % (0.0-4.3) H 04/24/17 05:42 Baso % (Auto) 1.2 % (0.0-1.8) 04/24/17 05:42 Lymph # 2.0 K/mm3 (1.2-5.4) 04/24/17 05:42 [place] # 0.7 K/mm3 (0.0-0.8) 04/24/17 05:42 Eos # 0.3 K/mm3 (0.0-0.4) 04/24/17 05:42 Baso # 0.1 K/mm3 (0.0-0.1) 04/24/17 05:42 Seg Neutrophils % 53.5 % (40.0-70.0) 04/24/17 05:42 Seg Neutrophils # 3.5 K/mm3 (1.8-7.7) 04/24/17 05:42 Sodium 145 mmol/L (137-145) 04/24/17 05:42 Potassium 3.2 mmol/L (3.6-5.0) L 04/24/17 05:42 Chloride 107.9 mmol/L (98-107) H 04/24/17 05:42 Carbon Dioxide 24 mmol/L (22-30) 04/24/17 05:42 Anion Gap 16 mmol/L 04/24/17 05:42 BUN 10 mg/dL (7-17) 04/24/17 05:42 Creatinine 0.5 mg/dL (0.7-1.2) L 04/24/17 05:42 Estimated GFR > 60 ml/min 04/24/17 05:42 BUN/Creatinine Ratio 20.00 % 04/24/17 05:42 Glucose 89 mg/dL (65-100) 04/24/17 05:42 POC Glucose 113 (70-105) H 04/23/17 13:45 Lactic Acid 0.90 mmol/L (0.7-2.0) 04/23/17 16:38 Calcium 9.1 mg/dL (8.4-10.2) 04/24/17 05:42 Magnesium 2.00 mg/dL (1.7-2.3) 04/23/17 16:50 Total Bilirubin 0.50 mg/dL (0.1-1.2) 04/24/17 05:42 AST 17 units/L (5-40) 04/24/17 05:42 ALT 14 units/L (7-56) 04/24/17 05:42 Alkaline Phosphatase 61 units/L (35-129) 04/24/17 05:42 Total Creatine Kinase 35 units/L (30-135) 04/23/17 16:50 Total Protein 6.0 g/dL (6.3-8.2) L 04/24/17 05:42 Albumin 3.4 g/dL (3.9-5) L 04/24/17 05:42 Albumin/Globulin Ratio 1.3 % 04/24/17 05:42 TSH 5.690 mlU/mL (0.270-4.200) H 04/23/17 13:47 Urine Color Yellow (Yellow) 04/23/17 14:07 Urine Turbidity Clear (Clear) 04/23/17 14:07 Urine pH 7.0 (5.0-7.0) 04/23/17 14:07 Ur Specific [place] 1.011 (1.003-1.030) 04/23/17 14:07 Urine Protein <15 mg/dl mg/dL (Negative) 04/23/17 14:07 Urine Glucose (UA) Neg mg/dL (Negative) 04/23/17 14:07 Urine Ketones Neg mg/dL (Negative) 04/23/17 14:07 Urine Blood Neg (Negative) 04/23/17 14:07 Urine Nitrite Neg (Negative) 04/23/17 14:07 Urine Bilirubin Neg (Negative) 04/23/17 14:07 Urine Urobilinogen < 2.0 mg/dL (<2.0) 04/23/17 14:07 Ur Leukocyte Esterase Lg (Negative) 04/23/17 14:07 Urine WBC (Auto) 20.0 /HPF (0.0-6.0) H 04/23/17 14:07 Urine RBC (Auto) 2.0 /HPF (0.0-6.0) 04/23/17 14:07 U Epithel Cells (Auto) 9.0 /HPF (0-13.0) 04/23/17 14:07 Urine Mucus Few /HPF 04/23/17 14:07 Urine Yeast (Budding) Few /HPF 04/23/17 14:07 Salicylates < 0.3 mg/dL (2.8-20.0) L 04/23/17 13:47 Urine Opiates Screen Presumptive negative 04/23/17 14:07 Urine Methadone Screen Presumptive negative 04/23/17 14:07 Acetaminophen < 15.0 ug/mL (10.0-30.0) 04/23/17 13:47 Ur Barbiturates Screen Presumptive negative 04/23/17 14:07 Ur Phencyclidine Scrn Presumptive negative 04/23/17 14:07 Ur Amphetamines Screen Presumptive negative 04/23/17 14:07 U Benzodiazepines Scrn Presumptive negative 04/23/17 14:07 Urine Cocaine Screen Presumptive negative 04/23/17 14:07 U Marijuana (THC) Screen Presumptive negative 04/23/17 14:07 Drugs of Abuse Note Disclamer 04/23/17 14:07 Plasma/Serum Alcohol < 0.01 gm% (0-0.07) 04/23/17 13:47 - Imaging and Cardiology EKG: image reviewed Chest x-ray: image reviewed CT Scan - head: report reviewed MRI - head: report reviewed
[2017-04-24] MEDS: HABITROL TD SCH (21:41)
[2017-04-25 06:03] LABS: Anion Gap 17 mmol/L; Blood Urea Nitrogen 8 mg/dL (7-17); Carbon Dioxide 22 mmol/L (22-30); Glucose 89 mg/dL (65-100); Potassium 3.5 mmol/L (3.6-5.0); Sodium 139 mmol/L (137-145)
[2017-04-25] MEDS: SYNTHROID PO SCH (06:28)
[2017-04-25] MEDS: D5NS 1,000 ML IV SCH ×2 (06:29→21:56)
--- NOTE | 2017-04-25 08:36 | Discharge Summary ---
Providers - Providers Date of Admission: 04/23/17 21:01 Date of discharge: 04/25/17 Attending physician: CHIRAG CARROLL Primary care physician: BETO BALDERRAMA MD Hospitalization Condition: Good Disposition: DC/[place]-06 HOME [facility] Time spent for discharge: 35 min Core Measure Documentation - Palliative Care Palliative Care/ Comfort Measures: Not Applicable - Core Measures Any of the following diagnoses?: none Exam - Constitutional Vitals: Temp Pulse Resp BP Pulse Ox 97.4 F L 92 H 18 164/71 100 04/25/17 01:00 04/25/17 08:12 04/25/17 08:12 04/25/17 01:00 04/25/17 01:00 Plan Activity: advance as tolerated, fall precautions Diet: low cholesterol, low salt Special Instructions: smoking cessation Follow up with: PRIMARY CARE, [Primary Care Provider] - 3-5 Days Prescriptions: Clopidogrel [Plavix] 75 mg PO QDAY #30 tablet Nicotine [Habitrol] 7 mg TD DAILY #7 patch
[2017-04-25] MEDS: SPIRIVA IH SCH (09:56)
[2017-04-25] MEDS: PLAVIX PO SCH (10:18)
[2017-04-25] MEDS: PROTONIX PO SCH (10:18)
[2017-04-25] MEDS: ROCEPHIN/NS 2 GM/100 ML 2 GM/100 ML BAG IV SCH (14:49)
--- NOTE | 2017-04-25 20:54 | Progress Note ---
Assessment and Plan Assessment and plan: 71-year-old female presenting with loss of consciousness, episode of drooling and slurred speech 1. Acute CVA CT head with no acute abnormality, but brain MRI showing small left inferior ganglionic and question left cerebral acute infarcts Started on antiplatelet therapy and statin Obtain carotid Doppler PT/OT/ST 2. Possible tachybradycardia syndrome Episodes of bradycardia alternating with tachycardia overnight Check electrolytes Monitor on telemetry Consult cardiology for possible further testing/management 3. UTI UA sugestive of UTI Urine culture obtained and started on Rocephin 4. COPD Continue inhaled bronchodilators, as needed supplemental oxygen 5. Nicotine dependence Nicotine patch Counseled regarding importance of quitting 6. Hypothyroidism Continue Synthroid 7. Malnutrition Possible secondary to long-standing tobacco abuse/COPD Diet supplementation 8. DVT prophylaxis History Interval history: No specific complaints except for feeling tired and weak Hospitalist Physical - Constitutional Vitals: Temp Pulse Resp BP Pulse Ox 98.1 F 60 18 159/78 100 04/25/17 10:17 04/25/17 10:17 04/25/17 10:04/25/17 10:04/25/17 01:00 General appearance: Present: no acute distress, cachectic - EENT Eyes: Present: PERRL, EOM intact. Absent: scleral icterus, conjunctival injection - Neck Neck: Present: supple, normal ROM. Absent: masses or JVD - Respiratory Respiratory effort: normal Respiratory: bilateral: diminished, negative: rhonchi, wheezing - Cardiovascular Rhythm: other (episodes of bradycardia alternating with tachycardia overnight) Heart Sounds: Present: S1 & S2. Absent: systolic murmur - Extremities Extremities: no ischemia - Abdominal General gastrointestinal: soft, non-tender, non-distended, normal bowel sounds - Psychiatric Psychiatric: cooperative - Neurologic Neurologic: no focal deficits Results - Labs CBC & Chem 7: 04/24/17 05:42 04/25/17 05:12 Labs: Laboratory Last Values WBC 6.5 K/mm3 (4.5-11.0) 04/24/17 05:42 RBC 3.79 M/mm3 (3.65-5.03) 04/24/17 05:42 Hgb 11.8 gm/dl (10.1-14.3) 04/24/17 05:42 Hct 35.7 % (30.3-42.9) 04/24/17 05:42 MCV 94 fl (79-97) 04/24/17 05:42 MCH 31 pg (28-32) 04/24/17 05:42 MCHC 33 % (30-34) 04/24/17 05:42 RDW 14.6 % (13.2-15.2) 04/24/17 05:42 Plt Count 224 K/mm3 (140-440) 04/24/17 05:42 Lymph % (Auto) 30.0 % (13.4-35.0) 04/24/17 05:42 [place] % (Auto) 10.6 % (0.0-7.3) H 04/24/17 05:42 Eos % (Auto) 4.7 % (0.0-4.3) H 04/24/17 05:42 Baso % (Auto) 1.2 % (0.0-1.8) 04/24/17 05:42 Lymph # 2.0 K/mm3 (1.2-5.4) 04/24/17 05:42 [place] # 0.7 K/mm3 (0.0-0.8) 04/24/17 05:42 Eos # 0.3 K/mm3 (0.0-0.4) 04/24/17 05:42 Baso # 0.1 K/mm3 (0.0-0.1) 04/24/17 05:42 Seg Neutrophils % 53.5 % (40.0-70.0) 04/24/17 05:42 Seg Neutrophils # 3.5 K/mm3 (1.8-7.7) 04/24/17 05:42 Sodium 139 mmol/L (137-145) 04/25/17 05:12 Potassium 3.5 mmol/L (3.6-5.0) L 04/25/17 05:12 Chloride 104.0 mmol/L (98-107) 04/25/17 05:12 Carbon Dioxide 22 mmol/L (22-30) 04/25/17 05:12 Anion Gap 17 mmol/L 04/25/17 05:12 BUN 8 mg/dL (7-17) 04/25/17 05:12 Creatinine 0.4 mg/dL (0.7-1.2) L 04/25/17 05:12 Estimated GFR > 60 ml/min 04/25/17 05:12 BUN/Creatinine Ratio 20.00 % 04/25/17 05:12 Glucose 89 mg/dL (65-100) 04/25/17 05:12 POC Glucose 113 (70-105) H 04/23/17 13:45 Lactic Acid 0.90 mmol/L (0.7-2.0) 04/23/17 16:38 Calcium 9.0 mg/dL (8.4-10.2) 04/25/17 05:12 Magnesium 2.00 mg/dL (1.7-2.3) 04/23/17 16:50 Total Bilirubin 0.50 mg/dL (0.1-1.2) 04/24/17 05:42 AST 17 units/L (5-40) 04/24/17 05:42 ALT 14 units/L (7-56) 04/24/17 05:42 Alkaline Phosphatase 61 units/L (35-129) 04/24/17 05:42 Total Creatine Kinase 35 units/L (30-135) 04/23/17 16:50 Total Protein 6.0 g/dL (6.3-8.2) L 04/24/17 05:42 Albumin 3.4 g/dL (3.9-5) L 04/24/17 05:42 Albumin/Globulin Ratio 1.3 % 04/24/17 05:42 Triglycerides 59 mg/dL (2-149) 04/25/17 05:12 Cholesterol 157 mg/dL (50-199) 04/25/17 05:12 LDL Cholesterol Direct 91 mg/dL (50-130) 04/25/17 05:12 HDL Cholesterol 55 mg/dL (40-59) 04/25/17 05:12 Cholesterol/HDL Ratio 2.85 % 04/25/17 05:12 TSH 5.690 mlU/mL (0.270-4.200) H 04/23/17 13:47 Free T4 1.73 ng/dL (0.76-1.46) H 04/25/17 05:12 Urine Color Yellow (Yellow) 04/23/17 14:07 Urine Turbidity Clear (Clear) 04/23/17 14:07 Urine pH 7.0 (5.0-7.0) 04/23/17 14:07 Ur Specific [place] 1.011 (1.003-1.030) 04/23/17 14:07 Urine Protein <15 mg/dl mg/dL (Negative) 04/23/17 14:07 Urine Glucose (UA) Neg mg/dL (Negative) 04/23/17 14:07 Urine Ketones Neg mg/dL (Negative) 04/23/17 14:07 Urine Blood Neg (Negative) 04/23/17 14:07 Urine Nitrite Neg (Negative) 04/23/17 14:07 Urine Bilirubin Neg (Negative) 04/23/17 14:07 Urine Urobilinogen < 2.0 mg/dL (<2.0) 04/23/17 14:07 Ur Leukocyte Esterase Lg (Negative) 04/23/17 14:07 Urine WBC (Auto) 20.0 /HPF (0.0-6.0) H 04/23/17 14:07 Urine RBC (Auto) 2.0 /HPF (0.0-6.0) 04/23/17 14:07 U Epithel Cells (Auto) 9.0 /HPF (0-13.0) 04/23/17 14:07 Urine Mucus Few /HPF 04/23/17 14:07 Urine Yeast (Budding) Few /HPF 04/23/17 14:07 Salicylates < 0.3 mg/dL (2.8-20.0) L 04/23/17 13:47 Urine Opiates Screen Presumptive negative 04/23/17 14:07 Urine Methadone Screen Presumptive negative 04/23/17 14:07 Acetaminophen < 15.0 ug/mL (10.0-30.0) 04/23/17 13:47 Ur Barbiturates Screen Presumptive negative 04/23/17 14:07 Ur Phencyclidine Scrn Presumptive negative 04/23/17 14:07 Ur Amphetamines Screen Presumptive negative 04/23/17 14:07 U Benzodiazepines Scrn Presumptive negative 04/23/17 14:07 Urine Cocaine Screen Presumptive negative 04/23/17 14:07 U Marijuana (THC) Screen Presumptive negative 04/23/17 14:07 Drugs of Abuse Note Disclamer 04/23/17 14:07 Plasma/Serum Alcohol < 0.01 gm% (0-0.07) 04/23/17 13:47
[2017-04-25] MEDS: HABITROL TD SCH (21:56)
[2017-04-26] MEDS: SYNTHROID PO SCH (06:07)
[2017-04-26] MEDS: SPIRIVA IH SCH ×2 (07:22→10:16)
[2017-04-26] MEDS: PROTONIX PO SCH (09:28)
[2017-04-26] MEDS: PLAVIX PO SCH (09:28)
--- NOTE | 2017-04-26 09:50 | Consultation ---
History of Present Illness Consult date: 04/26/17 Consult reason: syncope History of present illness: 71 year presenting with loss of consciouness, episode of drooling and slurred speech. MRI brain is showing evidence of acute left inferior ganglionic and left cerebellar acute infarcts. Patient denies chest pain but describes chronic shortness of breath. She is a former smoker. She denies previous cardiac history. No events noted on tele except for sinus bradycardia. No pauses recorded. Patient describes episodes of orthostatic dizziness while standing but no history of syncope in the past Past History Past Medical History: COPD, hypothyroidism, stroke Social history: smoking Medications and Allergies Allergies Allergy/AdvReac Type Severity Reaction Status Date / Time cephalexin monohydrate Allergy Hives Verified 04/15/17 21:11 [From [employer]] Home Medications Medication Instructions Recorded Confirmed Last Taken Type Alendronate Sodium [Fosamax] 70 mg PO QWEEK 04/15/17 04/23/17 04/15/17 History Ergocalciferol(Vitamin D2)(Nf) 400 unit PO DAILY 04/15/17 04/23/17 04/15/17 History [Vitamin D (Nf)] Levothyroxine [Synthroid] 100 mcg PO QAM 04/15/17 04/23/17 04/15/17 History Omeprazole Magnesium [PriLOSEC Otc] 40 mg PO QDAY 04/15/17 04/23/17 04/15/17 History Meclizine [Antivert] 12.5 mg PO BID PRN #20 tablet 04/17/17 04/23/17 Unknown Rx Clopidogrel [Plavix] 75 mg PO QDAY #30 tablet 04/25/17 Unknown Rx Nicotine [Habitrol] 7 mg TD DAILY #7 patch 04/25/17 Unknown Rx Tiotropium [Spiriva] 1 puff IH QDAY cap 04/25/17 Unknown Rx Active Meds: Active Medications Acetaminophen (Tylenol) 650 mg PO Q4H PRN PRN Reason: Pain MILD(1-3)/Fever >100.5/PHILIPPE Last Admin: 04/24/17 21:40 Dose: 650 mg Bisacodyl (Dulcolax) 10 mg AR QDAY PRN PRN Reason: Constipation unrelieved by MOM Clopidogrel Bisulfate (Plavix) [address] [facility] Last Admin: 08/20/17 09:28 Dose: 75 mg Hydromorphone HCl (Dilaudid) 0.5 mg IV Q3H PRN PRN Reason: Pain , Severe (7-10) Dextrose/Sodium Chloride (D5ns) 1,000 mls @ 75 mls/hr IV DIRECT [facility] Last Admin: 04/25/17 21:56 Dose: 75 mls/hr Ceftriaxone Sodium (Rocephin/Ns 2 Gm/100 Ml) 2 gm in 100 mls @ 200 mls/hr IV Q24H [facility] PRN Reason: Protocol Last Admin: 04/25/17 14:49 Dose: 200 mls/hr Levothyroxine Sodium (Synthroid) 100 mcg PO QAM@0600 [facility] Last Admin: 04/26/17 06:07 Dose: 100 mcg Magnesium Hydroxide (Milk Of Magnesia) 30 ml PO Q4H PRN PRN Reason: Constipation Meclizine HCl (Antivert) 12.5 mg PO BID PRN PRN Reason: Vertigo Nicotine (Habitrol) 7 mg TD DAILY@2200 [facility] Last Admin: 04/25/17 21:56 Dose: 7 mg Ondansetron HCl (Zofran) 4 mg IV Q8H PRN PRN Reason: N/V unrelieved by Reglan Oxycodone/Acetaminophen (Percocet 5/325) 1 tab PO Q6H PRN PRN Reason: Pain, Moderate (4-6) Pantoprazole Sodium (Protonix) [address] [facility] Last Admin: 04/26/17 09:28 Dose: 40 mg Tiotropium [place] (Spiriva) [address] [facility] Last Admin: 04/26/17 07:22 Dose: 1 puff Zolpidem Tartrate (Ambien) 5 mg PO QHS PRN PRN Reason: Insomnia Review of Systems All systems: negative Physical Examination Vital Signs Pulse Resp BP Pulse Ox 53 L 16 135/63 97 04/23/17 13:30 04/23/17 13:30 04/23/17 13:30 04/23/17 13:30 General appearance: no acute distress HEENT: Positive: PERRL Neck: Positive: neck supple Cardiac: Positive: Reg Rate and Rhythm Lungs: Positive: Normal Exam Neuro: Positive: Grossly Intact Abdomen: Positive: Soft Extremities: Present: normal Results 04/24/17 05:42 04/25/17 05:12 Assessment and Plan 1. Explained syncope, slurred speech and drooling in the setting of acute left ganglionic and left cereballar infarcts 2. Chronic shortness of breath Normal LVEF 04/2017 3. History of tobacco use 4. Asymptomatic sinus bradycardia 5. Orthostatic dizziness 6. Hypothyroidism Recommendations: Patient was given our contact information to call and schedule appointment for outpatient stress and 30 day event monitor Continue asa, statin therapy Obtain a carotid US if not previously performed No need for further inpatient cardiac work-up for the time being
[2017-04-26] MEDS: ROCEPHIN/NS 2 GM/100 ML 2 GM/100 ML BAG IV SCH (17:04)
--- NOTE | 2017-04-26 17:04 | Progress Note ---
Assessment and Plan Assessment and plan: 71-year-old female presenting with loss of consciousness, episode of drooling and slurred speech 1. Acute CVA CT head with no acute abnormality, but brain MRI showing small left inferior ganglionic and question left cerebral acute infarcts During the previous admission, CT showed right l[place] infarct Given these findings, TTE will be performed Carotid Doppler pending On antiplatelet therapy and statin PT/OT/ST 2. 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 UTI UA sugestive of UTI Urine culture obtained, but likely contaminated Continue Rocephin day 3 4. COPD Continue inhaled bronchodilators, as needed supplemental oxygen 5. Nicotine dependence Nicotine patch Counseled regarding importance of quitting 6. Hypothyroidism Continue Synthroid 7. Malnutrition Possible secondary to long-standing tobacco abuse/COPD Diet supplementation 8. DVT prophylaxis History Interval history: Doing well, except for feeling weak, tired Hospitalist Physical - Constitutional Vitals: Temp Pulse Resp BP Pulse Ox 98.4 F 72 18 130/76 100 04/26/17 10:12 04/26/17 10:12 04/26/17 10:12 04/26/17 10:12 04/25/17 23:00 General appearance: Present: no acute distress, cachectic - EENT Eyes: Present: PERRL, EOM intact. Absent: scleral icterus, conjunctival injection - Neck Neck: Present: supple, normal ROM. Absent: masses or JVD - Respiratory Respiratory effort: normal Respiratory: bilateral: diminished, negative: rhonchi, wheezing - Cardiovascular Rhythm: regular Heart Sounds: Present: S1 & S2. Absent: systolic murmur - Extremities Extremities: no ischemia - Abdominal General gastrointestinal: soft, non-tender, non-distended, normal bowel sounds - Integumentary Integumentary: Present: warm, dry. Absent: jaundice, rash - Psychiatric Psychiatric: cooperative - Neurologic Neurologic: no focal deficits Results - Labs CBC & Chem 7: 04/24/17 05:42 04/25/17 05:12 Labs: Laboratory Last Values WBC 6.5 K/mm3 (4.5-11.0) 04/24/17 05:42 RBC 3.79 M/mm3 (3.65-5.03) 04/24/17 05:42 Hgb 11.8 gm/dl (10.1-14.3) 04/24/17 05:42 Hct 35.7 % (30.3-42.9) 04/24/17 05:42 MCV 94 fl (79-97) 04/24/17 05:42 MCH 31 pg (28-32) 04/24/17 05:42 MCHC 33 % (30-34) 04/24/17 05:42 RDW 14.6 % (13.2-15.2) 04/24/17 05:42 Plt Count 224 K/mm3 (140-440) 04/24/17 05:42 Lymph % (Auto) 30.0 % (13.4-35.0) 04/24/17 05:42 [place] % (Auto) 10.6 % (0.0-7.3) H 04/24/17 05:42 Eos % (Auto) 4.7 % (0.0-4.3) H 04/24/17 05:42 Baso % (Auto) 1.2 % (0.0-1.8) 04/24/17 05:42 Lymph # 2.0 K/mm3 (1.2-5.4) 04/24/17 05:42 [place] # 0.7 K/mm3 (0.0-0.8) 04/24/17 05:42 Eos # 0.3 K/mm3 (0.0-0.4) 04/24/17 05:42 Baso # 0.1 K/mm3 (0.0-0.1) 04/24/17 05:42 Seg Neutrophils % 53.5 % (40.0-70.0) 04/24/17 05:42 Seg Neutrophils # 3.5 K/mm3 (1.8-7.7) 04/24/17 05:42 Sodium 139 mmol/L (137-145) 04/25/17 05:12 Potassium 3.5 mmol/L (3.6-5.0) L 04/25/17 05:12 Chloride 104.0 mmol/L (98-107) 04/25/17 05:12 Carbon Dioxide 22 mmol/L (22-30) 04/25/17 05:12 Anion Gap 17 mmol/L 04/25/17 05:12 BUN 8 mg/dL (7-17) 04/25/17 05:12 Creatinine 0.4 mg/dL (0.7-1.2) L 04/25/17 05:12 Estimated GFR > 60 ml/min 04/25/17 05:12 BUN/Creatinine Ratio 20.00 % 04/25/17 05:12 Glucose 89 mg/dL (65-100) 04/25/17 05:12 POC Glucose 113 (70-105) H 04/23/17 13:45 Lactic Acid 0.90 mmol/L (0.7-2.0) 04/23/17 16:38 Calcium 9.0 mg/dL (8.4-10.2) 04/25/17 05:12 Magnesium 2.00 mg/dL (1.7-2.3) 04/23/17 16:50 Total Bilirubin 0.50 mg/dL (0.1-1.2) 04/24/17 05:42 AST 17 units/L (5-40) 04/24/17 05:42 ALT 14 units/L (7-56) 04/24/17 05:42 Alkaline Phosphatase 61 units/L (35-129) 04/24/17 05:42 Total Creatine Kinase 35 units/L (30-135) 04/23/17 16:50 Total Protein 6.0 g/dL (6.3-8.2) L 04/24/17 05:42 Albumin 3.4 g/dL (3.9-5) L 04/24/17 05:42 Albumin/Globulin Ratio 1.3 % 04/24/17 05:42 Triglycerides 59 mg/dL (2-149) 04/25/17 05:12 Cholesterol 157 mg/dL (50-199) 04/25/17 05:12 LDL Cholesterol Direct 91 mg/dL (50-130) 04/25/17 05:12 HDL Cholesterol 55 mg/dL (40-59) 04/25/17 05:12 Cholesterol/HDL Ratio 2.85 % 04/25/17 05:12 TSH 5.690 mlU/mL (0.270-4.200) H 04/23/17 13:47 Free T4 1.73 ng/dL (0.76-1.46) H 04/25/17 05:12 Urine Color Yellow (Yellow) 04/23/17 14:07 Urine Turbidity Clear (Clear) 04/23/17 14:07 Urine pH 7.0 (5.0-7.0) 04/23/17 14:07 Ur Specific [place] 1.011 (1.003-1.030) 04/23/17 14:07 Urine Protein <15 mg/dl mg/dL (Negative) 04/23/17 14:07 Urine Glucose (UA) Neg mg/dL (Negative) 04/23/17 14:07 Urine Ketones Neg mg/dL (Negative) 04/23/17 14:07 Urine Blood Neg (Negative) 04/23/17 14:07 Urine Nitrite Neg (Negative) 04/23/17 14:07 Urine Bilirubin Neg (Negative) 04/23/17 14:07 Urine Urobilinogen < 2.0 mg/dL (<2.0) 04/23/17 14:07 Ur Leukocyte Esterase Lg (Negative) 04/23/17 14:07 Urine WBC (Auto) 20.0 /HPF (0.0-6.0) H 04/23/17 14:07 Urine RBC (Auto) 2.0 /HPF (0.0-6.0) 04/23/17 14:07 U Epithel Cells (Auto) 9.0 /HPF (0-13.0) 04/23/17 14:07 Urine Mucus Few /HPF 04/23/17 14:07 Urine Yeast (Budding) Few /HPF 04/23/17 14:07 Salicylates < 0.3 mg/dL (2.8-20.0) L 04/23/17 13:47 Urine Opiates Screen Presumptive negative 04/23/17 14:07 Urine Methadone Screen Presumptive negative 04/23/17 14:07 Acetaminophen < 15.0 ug/mL (10.0-30.0) 04/23/17 13:47 Ur Barbiturates Screen Presumptive negative 04/23/17 14:07 Ur Phencyclidine Scrn Presumptive negative 04/23/17 14:07 Ur Amphetamines Screen Presumptive negative 04/23/17 14:07 U Benzodiazepines Scrn Presumptive negative 04/23/17 14:07 Urine Cocaine Screen Presumptive negative 04/23/17 14:07 U Marijuana (THC) Screen Presumptive negative 04/23/17 14:07 Drugs of Abuse Note Disclamer 04/23/17 14:07 Plasma/Serum Alcohol < 0.01 gm% (0-0.07) 04/23/17 13:47
[2017-04-26] MEDS: D5NS 1,000 ML IV SCH (19:52)
[2017-04-26] MEDS: TYLENOL PO PRN (19:54)
[2017-04-26] MEDS: HABITROL TD SCH (21:33)
[2017-04-27] MEDS: SYNTHROID PO SCH (05:34)
[2017-04-27] MEDS: SPIRIVA IH SCH ×2 (08:34→10:54)
--- NOTE | 2017-04-27 09:57 | Progress Note ---
Assessment and Plan Assessment and plan: 71-year-old female presenting with loss of consciousness, episode of drooling and slurred speech 1. Acute ischemic stroke On Plavix, Lipitor PT/OT/ST For MIMI today 2. 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 UTI Continue Rocephin 4. COPD Continue inhaled bronchodilators, as needed supplemental oxygen 5. Nicotine dependence Nicotine patch Counseled regarding importance of quitting 6. Hypothyroidism Continue Synthroid 7. Malnutrition Possible secondary to long-standing tobacco abuse/COPD Diet supplementation 8. DVT prophylaxis History Interval history: Patient with atrial fibrillation, No chest pain Generalized weakness Hospitalist Physical - Physical exam Narrative exam: Gen appearance: Not in acute distress HEENT: normocephalic, atraumatic Neck:supple, no JVD, ADELIA Lungs: clear to auscultation bilaterally, no crackles or wheezes Heart :S1 and S2 irregular, no murmurs, rubs or gallop Abdomen: Soft, non tender, non distended, normal bowel sounds Extremities :no edema no clubbing or cyanosis Neuro: Awake, alert oriented Psych: normal mood - Constitutional Vitals: Temp Pulse Resp BP Pulse Ox 98.3 F 79 18 127/73 97 04/26/17 22:00 04/27/17 08:39 04/27/17 08:39 04/26/17 22:00 04/26/17 22:00 General appearance: Present: no acute distress, cachectic Results - Labs CBC & Chem 7: 04/24/17 05:42 04/25/17 05:12 Labs: Laboratory Last Values WBC 6.5 K/mm3 (4.5-11.0) 04/24/17 05:42 RBC 3.79 M/mm3 (3.65-5.03) 04/24/17 05:42 Hgb 11.8 gm/dl (10.1-14.3) 04/24/17 05:42 Hct 35.7 % (30.3-42.9) 04/24/17 05:42 MCV 94 fl (79-97) 04/24/17 05:42 MCH 31 pg (28-32) 04/24/17 05:42 MCHC 33 % (30-34) 04/24/17 05:42 RDW 14.6 % (13.2-15.2) 04/24/17 05:42 Plt Count 224 K/mm3 (140-440) 04/24/17 05:42 Lymph % (Auto) 30.0 % (13.4-35.0) 04/24/17 05:42 Reynolds % (Auto) 10.6 % (0.0-7.3) H 04/24/17 05:42 Eos % (Auto) 4.7 % (0.0-4.3) H 04/24/17 05:42 Baso % (Auto) 1.2 % (0.0-1.8) 04/24/17 05:42 Lymph # 2.0 K/mm3 (1.2-5.4) 04/24/17 05:42 Reynolds # 0.7 K/mm3 (0.0-0.8) 04/24/17 05:42 Eos # 0.3 K/mm3 (0.0-0.4) 04/24/17 05:42 Baso # 0.1 K/mm3 (0.0-0.1) 04/24/17 05:42 Seg Neutrophils % 53.5 % (40.0-70.0) 04/24/17 05:42 Seg Neutrophils # 3.5 K/mm3 (1.8-7.7) 04/24/17 05:42 Sodium 139 mmol/L (137-145) 04/25/17 05:12 Potassium 3.5 mmol/L (3.6-5.0) L 04/25/17 05:12 Chloride 104.0 mmol/L (98-107) 04/25/17 05:12 Carbon Dioxide 22 mmol/L (22-30) 04/25/17 05:12 Anion Gap 17 mmol/L 04/25/17 05:12 BUN 8 mg/dL (7-17) 04/25/17 05:12 Creatinine 0.4 mg/dL (0.7-1.2) L 04/25/17 05:12 Estimated GFR > 60 ml/min 04/25/17 05:12 BUN/Creatinine Ratio 20.00 % 04/25/17 05:12 Glucose 89 mg/dL (65-100) 04/25/17 05:12 POC Glucose 113 (70-105) H 04/23/17 13:45 Lactic Acid 0.90 mmol/L (0.7-2.0) 04/23/17 16:38 Calcium 9.0 mg/dL (8.4-10.2) 04/25/17 05:12 Magnesium 2.00 mg/dL (1.7-2.3) 04/23/17 16:50 Total Bilirubin 0.50 mg/dL (0.1-1.2) 04/24/17 05:42 AST 17 units/L (5-40) 04/24/17 05:42 ALT 14 units/L (7-56) 04/24/17 05:42 Alkaline Phosphatase 61 units/L (35-129) 04/24/17 05:42 Total Creatine Kinase 35 units/L (30-135) 04/23/17 16:50 Total Protein 6.0 g/dL (6.3-8.2) L 04/24/17 05:42 Albumin 3.4 g/dL (3.9-5) L 04/24/17 05:42 Albumin/Globulin Ratio 1.3 % 04/24/17 05:42 Triglycerides 59 mg/dL (2-149) 04/25/17 05:12 Cholesterol 157 mg/dL (50-199) 04/25/17 05:12 LDL Cholesterol Direct 91 mg/dL (50-130) 04/25/17 05:12 HDL Cholesterol 55 mg/dL (40-59) 04/25/17 05:12 Cholesterol/HDL Ratio 2.85 % 04/25/17 05:12 TSH 5.690 mlU/mL (0.270-4.200) H 04/23/17 13:47 Free T4 1.73 ng/dL (0.76-1.46) H 04/25/17 05:12 Urine Color Yellow (Yellow) 04/23/17 14:07 Urine Turbidity Clear (Clear) 04/23/17 14:07 Urine pH 7.0 (5.0-7.0) 04/23/17 14:07 Ur Specific [place] 1.011 (1.003-1.030) 04/23/17 14:07 Urine Protein <15 mg/dl mg/dL (Negative) 04/23/17 14:07 Urine Glucose (UA) Neg mg/dL (Negative) 04/23/17 14:07 Urine Ketones Neg mg/dL (Negative) 04/23/17 14:07 Urine Blood Neg (Negative) 04/23/17 14:07 Urine Nitrite Neg (Negative) 04/23/17 14:07 Urine Bilirubin Neg (Negative) 04/23/17 14:07 Urine Urobilinogen < 2.0 mg/dL (<2.0) 04/23/17 14:07 Ur Leukocyte Esterase Lg (Negative) 04/23/17 14:07 Urine WBC (Auto) 20.0 /HPF (0.0-6.0) H 04/23/17 14:07 Urine RBC (Auto) 2.0 /HPF (0.0-6.0) 04/23/17 14:07 U Epithel Cells (Auto) 9.0 /HPF (0-13.0) 04/23/17 14:07 Urine Mucus Few /HPF 04/23/17 14:07 Urine Yeast (Budding) Few /HPF 04/23/17 14:07 Salicylates < 0.3 mg/dL (2.8-20.0) L 04/23/17 13:47 Urine Opiates Screen Presumptive negative 04/23/17 14:07 Urine Methadone Screen Presumptive negative 04/23/17 14:07 Acetaminophen < 15.0 ug/mL (10.0-30.0) 04/23/17 13:47 Ur Barbiturates Screen Presumptive negative 04/23/17 14:07 Ur Phencyclidine Scrn Presumptive negative 04/23/17 14:07 Ur Amphetamines Screen Presumptive negative 04/23/17 14:07 U Benzodiazepines Scrn Presumptive negative 04/23/17 14:07 Urine Cocaine Screen Presumptive negative 04/23/17 14:07 U Marijuana (THC) Screen Presumptive negative 04/23/17 14:07 Drugs of Abuse Note Disclamer 04/23/17 14:07 Plasma/Serum Alcohol < 0.01 gm% (0-0.07) 04/23/17 13:47
[2017-04-27] MEDS: D5NS 1,000 ML IV SCH (10:20)
[2017-04-27] MEDS: PROTONIX PO SCH (10:29)
[2017-04-27] MEDS: PLAVIX PO SCH (10:29)
[2017-04-27] MEDS ORDERED: XYLOCAINE MPF 2% ONE (12:00)
[2017-04-27] MEDS ORDERED: DIPRIVAN 10 MG/ML IV ONE ×3 (12:38)
[2017-04-27] MEDS ORDERED: VERSED ONE (12:39)
[2017-04-27] MEDS ORDERED: DILAUDID ONE (12:39)
[2017-04-27] MEDS ORDERED: AMIDATE IV ONE (12:43)
--- NOTE | 2017-04-27 12:57 | Anesthesia Consultation ---
Anesthesia Consult and Med Hx - Airway Anesthetic Teeth Evaluation: Dentures ROM Head & Neck: Adequate Mental/Hyoid Distance: Adequate Mallampati Class: Class II Intubation Access Assessment: Probably Good - Pulmonary Exam CTA: Yes - Cardiac Exam Cardiac Exam: RRR - Pre-Operative Health Status ASA Pre-Surgery Classification: ASA3 Proposed Anesthetic Plan: MAC (for MIMI - pt admitted with AMS and drooling) - Pulmonary Hx Smoking: Yes Hx Asthma: No COPD: Yes Hx Pneumonia: No Hx Sleep Apnea: No - Cardiovascular System Hx Hypertension: No (multiple cerebral infarcts) Hx Heart Attack/AMI: No Hx Pacemaker: No - Central Nervous System Hx Neuromuscular Disorder: Yes (arthritis) Hx Seizures: No CVA: No Hx Psychiatric Problems: No - Gastrointestinal Hx Ulcer: Yes - Endocrine Hx Hypothyroidism: Yes - Hematic Hx Anemia: Yes - Other Systems Hx Cancer: No
[2017-04-27] MEDS ORDERED: HURRICAINE ONE 20% TOPICAL SPRAY MM (13:19)
[2017-04-27] MEDS ORDERED: NACL 0.9% 500 ML 500 ML ONE (13:42)
[2017-04-27] MEDS ORDERED: NACL 0.9% 500 ML 500 ML IV SCH (14:00)
[2017-04-27] MEDS ORDERED: HURRICAINE ONE 20% TOPICAL SPRAY MM NR (14:12)
--- NOTE | 2017-04-27 14:52 | Anesthesia Day of Surgery ---
Anesthesia Day of Surgery - Day of Surgery Patient Examined: Yes Patient H&P Reviewed: Yes Patient is NPO: Yes
--- NOTE | 2017-04-27 15:11 | Post Anesthesia Evaluation ---
- Post Anesthesia Evaluation Patient Participated: Yes Airway Patent: Yes Stable Respiratory Function: Yes Temp > 96.8F: Yes Pain Manageable: Yes Adequeate Hydration: Yes Anesthesia Complications: No Block Receding Appropriately: Not Applicable
[2017-04-27] MEDS: ROCEPHIN/NS 2 GM/100 ML 2 GM/100 ML BAG IV SCH (15:15)
--- NOTE | 2017-04-27 15:30 | Event Note ---
Date: 04/27/17 MIMI done today without complications findings: normal transesophageal echocardiogram, no vegetations seen.
[2017-04-27] MEDS: TYLENOL PO PRN (17:42)
[2017-04-27] MEDS: HABITROL TD SCH (22:14)
[2017-04-28] MEDS: SYNTHROID PO SCH (05:48)
[2017-04-28] MEDS: SPIRIVA IH SCH (09:01)
[2017-04-28] MEDS: K-DUR PO SCH ×2 (09:23→12:59)
[2017-04-28] MEDS: PLAVIX PO SCH (09:23)
[2017-04-28] MEDS: PROTONIX PO SCH (09:23)
--- NOTE | 2017-04-28 09:24 | Discharge Summary ---
Providers - Providers Date of Admission: 04/23/17 21:01 Date of discharge: 04/28/17 Attending physician: ELDA NINO 04/25/17 10:11 Consult to Physician [CONS] Routine Consulting Provider: JORDAN URIAS Reason For Exam: ? tachy-kendal sdr Place consult to:: [facility] Notified:: yes Phone number called:: [phone] If yes, spoke with:: candy Time called:: 10:18 Comment:: jarad 04/26/17 11:23 Physical Therapy Evaluation and Treat [CONS] Routine Comment: Reason For Exam: CVA 04/26/17 11:24 Occupational Therapy Evaluate and Treat [CONS] Routine Comment: Reason For Exam: CVA Speech Therapy Evaluation and Treat [CONS] Routine Reason For Exam: CVA Primary care physician: WATERSHED COORDINATOR Hospitalization Condition: Good Hospital course: Patient is 71 yo presented with decreased responsiveness, slurred speech and drooling from mouth. CT head was unremarkable. She was given Aspirin, Plavix and admitted to rule out stroke. MRI Brain was done and showed infarct left inferior ganglionic area and questionable left cerebellum infarct. MIMI was therefore done and was negative for thrombus. She improved after few days. She also had UTI present on admission and was treated with Ceftriaxone. Patient was evaluated by speech therapist and physical therapist, she improved and was discharged home with home health. Total time spent on discharge, 33 mins Disposition: DC/TX-06 HOME UNDER HOME HLTH - Discharge Diagnoses (1) Acute ischemic stroke Status: Acute (2) UTI (urinary tract infection) Status: Acute Qualifiers: Urinary tract infection type: acute cystitis Hematuria presence: H Indwelling urinary catheter type: I Encounter type: E (3) COPD (chronic obstructive pulmonary disease) Status: Chronic Qualifiers: COPD type: C Chronic bronchitis type: C Emphysema type: unspecified Qualified Code(s): J43.9 - Emphysema, unspecified (4) Hypothyroidism Status: Chronic Qualifiers: Hypothyroidism type: acquired Qualified Code(s): E03.9 - Hypothyroidism, unspecified (5) Hyperlipidemia Status: Acute Qualifiers: Hyperlipidemia type: H Core Measure Documentation - Palliative Care Palliative Care/ Comfort Measures: Not Applicable - Core Measures Any of the following diagnoses?: stroke - Stroke Discharge Requirements Statin for LDL = or >70 mg/dl on DC: Yes Anticoag for atrial fib/atrial flutter: Not Applicable Antithrombotic for ischemic stroke: Yes Exam - Physical Exam Narrative exam: Gen appearance: Not in acute distress HEENT: normocephalic, atraumatic Neck:supple, no JVD, Lungs: clear to auscultation bilaterally, no crackles or wheezes Heart :S1 and S2 irregular, no murmurs, rubs or gallop Abdomen: Soft, non tender, non distended, normal bowel sounds Extremities :no edema no clubbing or cyanosis Neuro: Awake, alert oriented Psych: normal mood - Constitutional Vitals: Temp Pulse Resp BP Pulse Ox 98.2 F 68 17 147/74 97 04/27/17 23:36 04/27/17 23:36 04/27/17 23:36 04/27/17 23:36 04/27/17 23:36 Plan Activity: advance as tolerated Diet: low fat, low cholesterol, low salt Special Instructions: physical therapy (home health PT) Additional Instructions: 1.Follow up with PCP in 1 week Follow up with: PRIMARY CARE, [Primary Care Provider] - 3-5 Days Prescriptions: AtorvaSTATin [Lipitor] 40 mg PO QHS #30 tablet Clopidogrel [Plavix] 75 mg PO QDAY #30 tablet Nicotine [Habitrol] 7 mg TD DAILY #7 patch
[2017-04-28 10:24] VITALS: BP 135/77
[2017-04-28] MEDS: ROCEPHIN/NS 2 GM/100 ML 2 GM/100 ML BAG IV SCH (13:01)
--- NOTE | 2017-04-28 16:56 | Progress Note ---
Assessment and Plan Acute left ganglionic and left cereballar infarcts no vegetation seen on MIMI this admission Chronic shortness of breath Normal LVEF 04/2017 History of tobacco use Asymptomatic sinus bradycardia Orthostatic dizziness Hypothyroidism Recommendations: No further cardiac workup indicated. Conservative cardiac management. Subjective Date of service: 04/28/17 Interval history: Patient is resting in bed comfortably. She denies shortness of breath and chest pain. Objective Vital Signs Temp Pulse Pulse Pulse Resp Resp BP 04/28/17 10:00 98.2 F 73 79 18 135/77 04/28/17 09:02 76 16 04/28/17 08:55 76 16 04/27/17 23:36 98.2 F 68 17 147/74 04/27/17 20:00 75 Pulse Ox 04/28/17 10:00 97 04/28/17 09:02 04/28/17 08:55 04/27/17 23:36 97 04/27/17 20:00 - Physical Examination General: No Apparent Distress Cardiac: Positive: Reg Rate and Rhythm - Labs and Meds Comprehensive Metabolic Panel 04/28/17 Range/Units 04:22 Potassium 3.2 L (3.6-5.0) mmol/L - Imaging and Cardiology EKG: image reviewed
--- NOTE | 2017-05-01 09:48 | Query- Nutrition ---
Dear ___Jovanna Date: 05/01/17 Vessel Liner/CDS:____Blake / Alonzo Phone#:___[phone] Exercise your independent professional judgment when responding to query. Questions asked do not imply a particular answer is desired or expected. We greatly appreciate your clarification on this issue. Clinical Documentation States: 71 year old female was admitted on 04/23/17. The hospitalist progress note (Dr. Nugent 04/27/17) states " Assessment and plan: 71-year-old female presenting with loss of consciousness, episode of drooling and slurred speech 7. Malnutrition Possible secondary to long-standing tobacco abuse/COPD Diet supplementation " Clinical Findings Show: Albumin: 3.2 Please select the most appropriate option 3 [] Mild Malnutrition [] Mild - Moderate Malnutrition [x] Moderate - Severe Malnutrition [] Severe Malnutrition Serum Albumin 2.8 to 3.4 g/dl or Pre-albumin 5 to 17 mg/dl1,2 Inadequate nutritional intake1,2,3,4 NPO > 5 days Weight loss: 5% in 1 month or 7.5% in 3 months or 10% in 6 months1, 3,4 BMI 16 to 18.4 or Weight <90% of ideal body weight1,2,3,4 Serum Albumin < 2.8 g/ dl1,2 Lymphocytes < 1500/ L2 Inadequate nutritional intake3, high stress e.g. major trauma, sepsis,pancreatitis, ford etc. Decubitus ulcers1,2, , skin breakdown2, easy hair pluckability2 Weight <80% standard for height2 Triceps skin fold <3 mm2 Mid-arm muscle circumference <15 cm2 Creatinine-height index <60% standard2 [ ] Cachexia [ ] Emaciated w/Malnutrition [ ] Other: [ ] Unable to determine [ ] Comment/Explanation: Present on Admission: [x ] Yes (Y) [ ] Clinically undeterminable (W) [ ] No (N) Please also document response in your Progress Notes and/or Discharge Summary and indicate if the condition was present on admission. MTDD
--- NOTE | 2017-05-01 09:53 | Query-Infection ---
Dear ____Jovanna Date:__05/01/17 Bit Tapper/CDS:____Monica / Alonzo Phone#:__[phone] Exercise your independent professional judgment when responding to this query. Questions asked do not imply a particular answer is desired or expected. We greatly appreciate your clarification on this issue. Clinical Documentation States: 71 Year old female was admitted on 04/23/17. The Hospitalist progress note (Dr. Nugent 04/27/17) states " Assessment and plan : 71-year-old female presenting with loss of consciousness, episode of drooling and slurred speech 3. UTI Continue Rocephin " Pulse rate: 92 Respiratory rate: 26 Medications: IV ceftriaxone Clinical findings show: (please check applicable parameters) Infection, known /suspected, with some of the following indicators; Specify the infection: 3 General parameters [ ] Fever (core temp >38.30C or 100.40F) [ ] Hypothermia (core temp <36C) [ x] Heart rate >90 bpm [ x] Tachypnea: >20 bpm or pCO2 < 32 mmHg [ ] Altered mental status [ ] Significant edema / +ve fluid balance (>20 ml/kg 24 h) [ ] Hyperglycemia (Bl. glucose >110 mg/dl) w/o diabetes Inflammatory parameters [ ] Leukocytosis (white blood cell count >12,000/l) [ ] Leukopenia (white blood cell count <4,000/l) [ ] Bandemia (immature WBC > 10%) [ ] Leucocyte Left Shift [ ] Plasma procalcitonin>2 SD above the normal value Hemodynamic and tissue perfusion parameters [ ] Arterial hypotension(SBP <90 mmHg, MAP <70 mmHg,or a SBP drop >40 mmHg in adults) [ ] Hyperlactatemia (>3 mmol/l) [ ] Anion Gap (> 11mEG/l) [ ] Decreased capillary refill or mottling Organ dysfunction parameters [ ] Arterial hypoxemia (PaO2/FIO2 <300) [ ] Creatinine increase =0.5 mg/dl [ ] Acute oliguria (urine output <0.5 ml | kg |h or 45 mM/l for at least 2 hrs) [ ] Coagulation abnormalities (INR >1.5 or activated partial thromboplastin time >60 s) [ ] Ileus (absent sravani wel sounds) [ ] Thrombocytopenia (platelet count <100,000/l) [ ] Hyperbilirubinemia (plasma total bilirubin >4 mg/dl) According to the clinical indications above, can Bacteremia be further specified? If so, please indicate below and in your Progress Notes and/ or Discharge Summary. Indicate if the condition was present on admission. PHYSICIAN RESPONSE: [ ] Sepsis [ ] Severe Sepsis [ ] Septic Shock [ ] Septicemia [ ] Sepsis now resolved [ ] SIRS due to non-infectious cause with organ dysfunction [x ] SIRS due to non-infectious cause without organ dysfunction [ ] Other: [ ] Comment/Explanation: Present on Admission: [x ] Yes (Y) [ ] Clinically undeterminable (W) [ ] No (N) [ ] Ruled Out Please also document response in your Progress Notes and/or Discharge Summary and indicate if the condition was present on admission Notes: SIRS/ SIRS WITH ORGAN DYSFUNCTION Systemic inflammatory response syndrome (SIRS) generally refers to the systemic response to trauma/ford or other insult such as Acute Myocardial Infarction, Acute Pancreatitis, and Major Surgery with symptoms including fever, tachycardia , tachypnea, and leukocytosis (1). BACTEREMIA Presence of viable bacteria in the circulating blood (2). This term is reserved for patients that do not manifest above SIRS response. SEPTICEMIA Generally refers to a systemic disease associated with the presence of pathological microorganisms or toxins in the blood, which can include bacteria, viruses, fungi or other organisms (1). SEPSIS Generally refers to SIRS due infection (1). SEVERE SEPSIS Generally refers to sepsis associated with acute organ dysfunction (1). SEPTIC SHOCK Generally refers to circulatory failure associated with severe sepsis (2), and defined as hypotension or hypoperfusion despite adequate fluid resuscitation (1 hour) (3). REFERENCES: 1. [employer]/Society of Critical Care Medicine Consensus Conference. Definitions for sepsis and organ failure and guidelines for the use of innovative therapies in sepsis. Critical Care Med 1992;20:864 - 74. 2. Gilmar zarate MM, Jordan MP, Stephen FLORENTINO, Te E, Roger D, Rao D, Farhan J, Nini SM , Juan Carlos JL, Olvin G; International Sepsis Definitions Conference. 2001 SCCM/ESICM/ACCP/ATS/SIS International Sepsis Definitions Conference. Intensive Care Med. 2002;29(4):530-8. Epub 2002Dec 02. Review. PubMed PMID:[id number] 3. ICD-9-CM Official Guidelines for Coding and Reporting 4. Medscape Drugs, Diseases and Procedures references 5. [employer] Textbook of Internal Medicine. 18th Edition MTDD
== END 2017-04-28 17:35 | disposition home health service (06) | DRG 64 ==
LOC: ED 13:13 → CC2 21:01
PROVIDERS: ADMIT Internal Medicine; ATTEND Internal Medicine
DX: I63.9 Cerebral infarction, unspecified (principal); E43 Unspecified severe protein-calorie malnutrition; Z68.1 Body mass index [BMI] 19.9 or less, adult; N30.00 Acute cystitis without hematuria; R65.10 Systemic inflammatory response syndrome (SIRS) of non-infectious origin without acute organ dysfunction; E03.9 Hypothyroidism, unspecified; M19.90 Unspecified osteoarthritis, unspecified site; F17.210 Nicotine dependence, cigarettes, uncomplicated; J43.9 Emphysema, unspecified; I48.91 Unspecified atrial fibrillation; Z79.899 Other long term (current) drug therapy; Z88.1 Allergy status to other antibiotic agents
CPT/HCPCS: 36415; 70450; 70544; 70551; 71010; 80048; 80053; 80061; 80307; 80320; 81001; 82140; 82550; 82962; 83735; 84132; 84439; 84443; 85025; 87086; 93005; 93010; 93312; 93320; 93325; 94640; 99406; A9270-GY; G0480; G8978-GP; G8979-GP; G8996-GN; G8997-GN; G8998-GN; J0696; J1170; J2250; J2704; J7040; J7042

== ENCOUNTER 2019-04-07 09:41 | Outpatient (CLI) | payer MEDICARE ==
--- NOTE | 2019-04-07 12:44 | Mammography Report ---
BILATERAL DIGITAL SCREENING MAMMOGRAM WITH CAD INDICATION: Routine screening mammography. TECHNIQUE: Digital bilateral 2D mammography was obtained in the craniocaudal and mediolateral obliq ue projections. This examination was interpreted with the benefit of Computer-Aided Detection analysi s. COMPARISON: None available. FINDINGS: Breast Density: The breasts are heterogeneously dense, which may obscure small masses. No mass, architectural distortion or suspicious calcifications. Bilateral benign calcifications, some of which are arterial. IMPRESSION:No mammographic evidence of malignancy. BI-RADS Category 2: Benign. No mammographic evidence of malignancy. Recommend routine screening ma mmography in one year. A "normal" or negative report should not discourage follow up or biopsy of a clinically significant f inding. A written summary of these findings will be mailed to the patient. The patient will be entered into a mammography reporting system which will generate a reminder letter for the patient's next appointmen t at the appropriate interval. The [employer] recommends yearly mammograms starting at age 40 and continuing as l ramesh as a woman is in good health. Breast MRI is recommended for women with an approximate 20-25% or greater lifetime risk of breast cancer, including women with a strong family history of breast or ova robin cancer or who have been treated for Hodgkin's disease. Signer Name: Emmanuel Nathan MD Signed: 04/07/2019 12:40 PM Workstation Name: [id number]
== END 2019-04-07 09:42 | disposition home or self-care (01) ==
LOC: MAMMO 09:41
PROVIDERS: ATTEND Internal Medicine
DX: Z12.31 Encounter for screening mammogram for malignant neoplasm of breast (principal); I10 Essential (primary) hypertension; J44.9 Chronic obstructive pulmonary disease, unspecified; E03.9 Hypothyroidism, unspecified
CPT/HCPCS: 77067

== ENCOUNTER 2019-07-07 20:17 | Inpatient (IN) | payer MEDICARE ==
[2019-07-07] MEDS ORDERED: HYDROmorphone 1 MG/1 ML INJ IV ONE (21:25)
[2019-07-07 22:08] LABS: BUN/Creatinine Ratio 18; Blood Urea Nitrogen 11 mg/dL (7-17); Calcium 8.9 mg/dL (8.4-10.2); Hematocrit 41.1 % (30.3-42.9); Hemoglobin 13.4 gm/dl (10.1-14.3); Hemolysis Index 14; Mean Corpuscular HGB Conc 33 % (30-34); Mean Corpuscular Volume 86 fl (79-97); Platelet Count 294 K/mm3 (140-440); Red Blood Count 4.77 M/mm3 (3.65-5.03); Red Cell Distribution Width 15.5 % (13.2-15.2)
--- NOTE | 2019-07-07 22:16 | Emergency Department Report ---
HPI - General Chief Complaint: Extremity Injury, Upper Time Seen by Provider: 07/07/19 22:08 - HPI HPI: Room 6 The patient is a 73-year-old female presenting with chief complaint right wrist pain. The patient states that around 2 quickly losing her balance and fell trying to break her fall with her right hand. Patient denies loss of consciousness. Patient currently gives pain a 4 out of 4/10 Location: [See above] Duration: [See above] Quality: [See above] Severity: [See above] Timing: [See above] Context: [See above] Modifying factors: [See above] Associated signs and symptoms: [see above] ED Past Medical Hx - Past Medical History Hx Hypertension: No (multiple cerebral infarcts) Hx Arthritis: Yes Hx COPD: Yes Additional medical history: Hypothyroidism - Surgical History Additional Surgical History: left wrist, fracture repair. - Family History Family history: no significant - Social History Smoking Status: Never Smoker Substance Use Type: None - Medications Home Medications: Home Medications Medication Instructions Recorded Confirmed Last Taken Type Alendronate Sodium [Fosamax] 70 mg PO QWEEK 04/15/17 07/07/19 04/15/17 History Ergocalciferol(Vitamin D2)(Nf) 400 unit PO DAILY 04/15/17 07/07/19 04/15/17 History [Vitamin D (Nf)] Meclizine [Antivert] 12.5 mg PO BID PRN #20 tablet 04/17/17 07/07/19 Unknown Rx Clopidogrel [Plavix] 75 mg PO QDAY #30 tablet 04/25/17 07/07/19 Unknown Rx Tiotropium [Spiriva] 1 puff IH QDAY cap 04/25/17 07/07/19 Unknown Rx AtorvaSTATin [Lipitor] 20 mg PO QHS 07/07/19 07/07/19 Unknown History Levothyroxine [Synthroid] 88 mcg PO QAM 07/07/19 07/07/19 Unknown History ED Review of Systems ROS: Stated complaint: WRIST INJURY Other details as noted in HPI Constitutional: no symptoms reported Eyes: denies: eye pain ENT: denies: throat pain Respiratory: no symptoms reported Cardiovascular: denies: chest pain Endocrine: no symptoms reported Gastrointestinal: denies: abdominal pain Genitourinary: denies: dysuria Physical Exam - Physical Exam Vital Signs: Vital Signs 07/07/19 07/07/19 20:23 20:32 Temperature 97.5 F L 97.5 F L Pulse Rate 89 89 Respiratory 17 17 Rate Blood Pressure 148/84 Blood Pressure 148/84 [Left] O2 Sat by Pulse 92 93 Oximetry Physical Exam: GENERAL: The patient is well-developed well-nourished female lying on stretcher appearing to be in moderate discomfort. [] HEENT: Normocephalic. Atraumatic. Extraocular motions are intact. Patient has moist mucous membranes. NECK: Supple. Trachea midline CHEST/LUNGS: There is no respiratory distress noted. HEART/CARDIOVASCULAR: Regular. There is no tachycardia. There is no gallop rub or murmur. SKIN: There is a laceration over the wrist with approximately 3 cm of exposed bone NEURO: The patient is awake, alert, and oriented. The patient is cooperative. The patient has no focal neurologic deficits. The patient has normal speech MUSCULOSKELETAL: There is an obvious open deformity of the right wrist ED Course Vital Signs 07/07/19 07/07/19 20:23 20:32 Temperature 97.5 F L 97.5 F L Pulse Rate 89 89 Respiratory 17 17 Rate Blood Pressure 148/84 Blood Pressure 148/84 [Left] O2 Sat by Pulse 92 93 Oximetry - Consultations Consultation #1: 07/07/19 22:23 Case discussed with Orthopedic surgery (Dr. Pandya)-Dr. Pandya is aware that the patient has an open wrist fracture with exposed bone (x-rays sent). States fracture can be closed/repaired in 24 hours. Recommends reduction and placement in a sugar tong splint. Recommends mitomycin administered. Have hospitalist admit and he will repair patient's wrist - Moderate Sedation Indications: fracture/dislocation redu ASA Class: II Mallampati Airway Score: 2 Time of Last PO Intake: 19:00 Preparation: trouble operator applied, pulse oximeter, supplemental O2 applied, suction/airway equipment at bedside, IV secured IV Etomidate Dose (mgs): 10 Complications: none Interventions: oxygen applied Patient Tolerated Procedure: well - Orthopedic Fracture Reduction Fracture #1 Consent Obtained: verbal consent Time Out Performed: Yes Side: right Fracture Reduction Location: radius, other Analgesia: moderate sedation Technique: direct manipulation Post Reduction X-rays Demonstrate: acceptable reduction Post-Reduction Neuro Exam: intact Post-Reduction Vascular Exam: intact Splint Applied: Yes Patient Tolerated Procedure: well ED Medical Decision Making - Lab Data Result diagrams: 07/07/19 21:29 07/07/19 21:29 Laboratory Tests 07/07/19 07/07/19 07/07/19 21:29 21:29 22:41 WBC 15.9 H RBC 4.77 Hgb 13.4 Hct 41.1 MCV 86 MCH 28 MCHC 33 RDW 15.5 H Plt Count 294 Add Manual Diff Complete Total Counted 100 Seg Neuts % (Manual) 83.0 H Band Neutrophils % 0 Lymphocytes % (Manual) 9.0 L Reactive Lymphs % (Man) 0 Monocytes % (Manual) 6.0 Eosinophils % (Manual) 1.0 Basophils % (Manual) 1.0 Metamyelocytes % 0 Myelocytes % 0 Promyelocytes % 0 Blast Cells % 0 Nucleated RBC % Not Reportable Seg Neutrophils # Man 13.2 H Band Neutrophils # 0.0 Lymphocytes # (Manual) 1.4 Abs React Lymphs (Man) 0.0 Monocytes # (Manual) 1.0 H Eosinophils # (Manual) 0.2 Basophils # (Manual) 0.2 H Metamyelocytes # 0.0 Myelocytes # 0.0 Promyelocytes # 0.0 Blast Cells # 0.0 WBC Morphology Not Reportable Hypersegmented Neuts Not Reportable Hyposegmented Neuts Not Reportable Hypogranular Neuts Not Reportable Smudge Cells Not Reportable Toxic Granulation Not Reportable Toxic Vacuolation Not Reportable Dohle Bodies Not Reportable Pelger-Huet Anomaly Not Reportable Etta Rods Not Reportable Platelet Estimate Not Reportable Clumped Platelets Not Reportable Plt Clumps, EDTA Not Reportable Large Platelets Not Reportable Giant Platelets Not Reportable Platelet Satelliting Not Reportable Plt Morphology Comment Not Reportable RBC Morphology Normal Dimorphic RBCs Not Reportable Polychromasia Not Reportable Hypochromasia Not Reportable Poikilocytosis Not Reportable Anisocytosis Not Reportable Microcytosis Not Reportable Macrocytosis Not Reportable Spherocytes Not Reportable Pappenheimer Bodies Not Reportable Sickle Cells Not Reportable Target Cells Not Reportable Tear Drop Cells Not Reportable Ovalocytes Not Reportable Helmet Cells Not Reportable [place] Bodies Not Reportable [place] Rings Not Reportable [place] Cells Not Reportable Bite Cells Not Reportable Crenated Cell Not Reportable Elliptocytes Not Reportable Acanthocytes (Spur) Not Reportable Rouleaux Not Reportable Hemoglobin C Crystals Not Reportable Schistocytes Not Reportable Malaria parasites Not Reportable Dain Bodies Not Reportable Hem Pathologist Commnt No PT 12.7 INR 0.96 APTT 26.0 Sodium 139 Potassium 3.9 Chloride 105.6 Carbon Dioxide 21 L Anion Gap 16 BUN 11 Creatinine 0.6 L Estimated GFR > 60 BUN/Creatinine Ratio 18 Glucose 105 H Calcium 8.9 - Radiology Data Radiology results: report reviewed (right wrist x-ray #1), image reviewed (right wrist x-ray, right wrist x-ray #2) interpreted by me: Right wrist [id number] distal radius fracture with displacement Right wrist x-ray #2-comminuted distal radius and ulna fracture with better alignment [facility] [address] [place] [address] XRay Report Signed Patient: REJI JORDAN MR#: [id number] [birth year] : 1945 Acct:[id number] Age/Sex: 73 / F ADM Date: 07/07/19 Loc: ED Attending Dr: Ordering Physician: ELDA EL MD Date of Service: 07/07/19 Procedure(s): XR wrist 2V RT Accession Number(s): [id number] cc: ELDA EL MD Fluoro Time In Minutes: HISTORY:right open wrist fracture COMPARISON: None. TECHNIQUE: AP lateral and obliques views were obtained FINDINGS: Bones: Comminuted fracture of the distal ulnar and distal radius metaphyseal diaphyseal region with extension into the articular space. Angulation and overriding and displacement noted Joint spaces: Maintained. Soft tissues: No significant abnormality. Additional findings: None. IMPRESSION: 1. Complex comminuted fracture distal radius and distal ulnar Signer Name: Ryder Cordoba MD Signed: 07/07/2019 11:00 PM Workstation Name: [id number] Transcribed By: WG Dictated By: Ryder Cordoba MD Electronically Authenticated By: Ryder Cordoba MD Signed Date/Time: 07/07/192299 DD/ 58 TD/TT: - Differential Diagnosis open wrist fracture Critical care attestation.: If time is entered above; I have spent that time in minutes in the direct care of this critically ill patient, excluding procedure time. ED Disposition Clinical Impression: Open fracture of right wrist, Acute pain of right wrist Disposition: OP ADMIT IP TO THIS HOSP Is pt being admited?: Yes Does the pt Need Aspirin: No Condition: Stable Time of Disposition: 22:31 (hospitalist paged (Dr Persaud))
[2019-07-07] MEDS ORDERED: VANCOMYCIN/NS 1 GM/250 ML 1 GM/250 ML BAG IV ONE (22:19)
[2019-07-07] MEDS ORDERED: ETOMIDATE 20 MG/10 ML INJ IV ONE (22:43)
[2019-07-07] MEDS ORDERED: SODIUM CHLORIDE 0.9% 1000 ML 1,000 ML IV ONE (22:43)
[2019-07-07] MEDS ORDERED: ACETAMINOPHEN 325 MG TAB PO PRN (22:43)
[2019-07-07] MEDS ORDERED: ONDANSETRON 4 MG/2 ML INJ IV PRN (22:43)
[2019-07-07 22:59] LABS: RBC Morphology Normal; Total Cells Counted 100
[2019-07-07 23:04] LABS: INR 0.96 (0.87-1.13)
--- NOTE | 2019-07-07 23:04 | XRay Report ---
HISTORY:right open wrist fracture COMPARISON: None. TECHNIQUE: AP lateral and obliques views were obtained FINDINGS: Bones: Comminuted fracture of the distal ulnar and distal radius metaphyseal diaphyseal region with e xtension into the articular space. Angulation and overriding and displacement noted Joint spaces: Maintained. Soft tissues: No significant abnormality. Additional findings: None. IMPRESSION: 1. Complex comminuted fracture distal radius and distal ulnar Signer Name: Ryder Cordoba MD Signed: 07/07/2019 11:00 PM Workstation Name: [id number]
--- NOTE | 2019-07-07 23:19 | History and Physical Report ---
History of Present Illness Date of examination: 07/07/19 Date of admission: 07/07/19 Chief complaint: S/p fall with right wrist fracture History of present illness: Pt is a 73 year old female with PMHx of hypothyroidism, osteoporosis, HDL, CAD, COPD, vertigo, who was brought to the ER with c/o right wist pain. Pt's son in room states that pt was standing in the kitchen when she abruptly turned, she became dizzy and fell, she landed on her right hand. Pt states that she developed a sudden pain in her right wrist. She denies recent illness, denies headache, denies denies head injury, denies visual changes. In the ER, Pt had an x-ray that showed a comminuted distal radius and ulnar fracture, orthopedic was consulted and pt was admitted for further evaluation Past History Past Medical History: COPD, hypertension, hyperlipidemia, hypothyroidism Past Surgical History: No surgical history, Other (left wrist surgery) Social history: no significant social history Family history: no significant family history Medications and Allergies Allergies Allergy/AdvReac Type Severity Reaction Status Date / Time cephalexin monohydrate Allergy Hives Verified 04/15/17 21:11 [From Keflex] Home Medications Medication Instructions Recorded Confirmed Last Taken Type Alendronate Sodium [Fosamax] 70 mg PO QWEEK 04/15/17 07/07/19 04/15/17 History Ergocalciferol(Vitamin D2)(Nf) 400 unit PO DAILY 04/15/17 07/07/19 04/15/17 History [Vitamin D (Nf)] Meclizine [Antivert] 12.5 mg PO BID PRN #20 tablet 04/17/17 07/07/19 Unknown Rx Clopidogrel [Plavix] 75 mg PO QDAY #30 tablet 04/25/17 07/07/19 Unknown Rx Tiotropium [Spiriva] 1 puff IH QDAY cap 04/25/17 07/07/19 Unknown Rx AtorvaSTATin [Lipitor] 20 mg PO QHS 07/07/19 07/07/19 Unknown History Levothyroxine [Synthroid] 88 mcg PO QAM 07/07/19 07/07/19 Unknown History Active Meds: Active Medications Acetaminophen (Tylenol) 650 mg PO Q4H PRN PRN Reason: Pain MILD(1-3)/Fever >100.5/PHILIPPE Famotidine (Pepcid) 20 mg IV BID [facility] Vancomycin HCl (Vancomycin/Ns 1 Gm/250 Ml) 1 gm in 250 mls @ 167.007 mls/hr IV ONCE ONE; Protocol Stop: 07/07/19 23:48 Sodium Chloride (Nacl 0.9% 1000 Ml) 1,000 mls @ 125 mls/hr IV ONCE ONE Stop: 07/08/19 06:42 Ondansetron HCl (Zofran) 4 mg IV Q8H PRN PRN Reason: Nausea And Vomiting Oxycodone/Acetaminophen (Percocet 5/325) 1 tab PO Q6H PRN PRN Reason: Pain, Moderate (4-6) Sodium Chloride (Sodium Chloride Flush Syringe 10 Ml) 10 ml IV BID BEA Sodium Chloride (Sodium Chloride Flush Syringe 10 Ml) 10 ml IV PRN PRN PRN Reason: LINE FLUSH Review of Systems Musculoskeletal: other (right wrist pain) Exam - Constitutional Vitals: Temp Pulse Resp BP Pulse Ox 97.5 F L 85 17 148/84 93 07/07/19 20:32 07/07/19 23:07 07/07/19 20:32 07/07/19 20:32 07/07/19 20:32 General appearance: Present: severe distress - EENT Eyes: Present: EOM intact ENT: hearing intact - Neck Neck: Present: normal ROM - Respiratory Respiratory effort: normal Respiratory: bilateral: diminished - Cardiovascular Heart Sounds: Present: S1 & S2 - Extremities Extremities: no ischemia, No edema Peripheral Pulses: within normal limits - Abdominal General gastrointestinal: Present: soft, non-tender Female genitourinary: Present: deferred - Rectal Rectal Exam: deferred - Integumentary Integumentary: Present: warm, dry - Musculoskeletal Musculoskeletal: strength equal bilaterally - Psychiatric Psychiatric: cooperative - Neurologic Neurologic: moves all extremities Results - Labs CBC & Chem 7: 07/07/19 21:29 07/07/19 21:29 Labs: Laboratory Last Values WBC 15.9 K/mm3 (4.5-11.0) H 07/07/19 21:29 RBC 4.77 M/mm3 (3.65-5.03) 07/07/19 21:29 Hgb 13.4 gm/dl (10.1-14.3) 07/07/19 21:29 Hct 41.1 % (30.3-42.9) 07/07/19 21: MCV 86 fl (79-97) 07/07/19 21: MCH 28 pg (28-32) 07/07/19 21: MCHC 33 % (30-34) 07/07/19 21:29 RDW 15.5 % (13.2-15.2) H 07/07/19 21:29 Plt Count 294 K/mm3 (140-440) 07/07/19 21:29 Add Manual Diff Complete 07/07/19 21:29 Total Counted 100 07/07/19 21:29 Seg Neuts % (Manual) 83.0 % (40.0-70.0) H 07/07/19 21: Band Neutrophils % 0 % 07/07/19 21: Lymphocytes % (Manual) 9.0 % (13.4-35.0) L 07/07/19 21:29 Reactive Lymphs % (Man) 0 % 07/07/19 21: Monocytes % (Manual) 6.0 % (0.0-7.3) 07/07/19 21: Eosinophils % (Manual) 1.0 % (0.0-4.3) 07/07/19 21: Basophils % (Manual) 1.0 % (0.0-1.8) 07/07/19 21: Metamyelocytes % 0 % 07/07/19 21:29 Myelocytes % 0 % 07/07/19 21:29 Promyelocytes % 0 % 07/07/19 21: Blast Cells % 0 % 07/07/19 21:29 Nucleated RBC % Not Reportable 07/07/19 21:29 Seg Neutrophils # Man 13.2 K/mm3 (1.8-7.7) H 07/07/19 21:29 Band Neutrophils # 0.0 K/mm3 07/07/19 21: Lymphocytes # (Manual) 1.4 K/mm3 (1.2-5.4) 07/07/19 21:29 Abs React Lymphs (Man) 0.0 K/mm3 07/07/19 21:29 Monocytes # (Manual) 1.0 K/mm3 (0.0-0.8) H 07/07/19 21:29 Eosinophils # (Manual) 0.2 K/mm3 (0.0-0.4) 07/07/19 21:29 Basophils # (Manual) 0.2 K/mm3 (0.0-0.1) H 07/07/19 21:29 Metamyelocytes # 0.0 K/mm3 07/07/19 21:29 Myelocytes # 0.0 K/mm3 07/07/19 21:29 Promyelocytes # 0.0 K/mm3 07/07/19 21:29 Blast Cells # 0.0 K/mm3 07/07/19 21:29 WBC Morphology Not Reportable 07/07/19 21:29 Hypersegmented Neuts Not Reportable 07/07/19 21:29 Hyposegmented Neuts Not Reportable 07/07/19 21:29 Hypogranular Neuts Not Reportable 07/07/19 21:29 Smudge Cells Not Reportable 07/07/19 21:29 Toxic Granulation Not Reportable 07/07/19 21:29 Toxic Vacuolation Not Reportable 07/07/19 21:29 Dohle Bodies Not Reportable 07/07/19 21:29 Pelger-Huet Anomaly Not Reportable 07/07/19 21:29 Etta Rods Not Reportable 07/07/19 21:29 Platelet Estimate Not Reportable 07/07/19 21:29 Clumped Platelets Not Reportable 07/07/19 21:29 Plt Clumps, EDTA Not Reportable 07/07/19 21:29 Large Platelets Not Reportable 07/07/19 21:29 Giant Platelets Not Reportable 07/07/19 21:29 Platelet Satelliting Not Reportable 07/07/19 21:29 Plt Morphology Comment Not Reportable 07/07/19 21:29 RBC Morphology Normal 07/07/19 21:29 Dimorphic RBCs Not Reportable 07/07/19 21:29 Polychromasia Not Reportable 07/07/19 21:29 Hypochromasia Not Reportable 07/07/19 21:29 Poikilocytosis Not Reportable 07/07/19 21:29 Anisocytosis Not Reportable 07/07/19 21:29 Microcytosis Not Reportable 07/07/19 21:29 Macrocytosis Not Reportable 07/07/19 21:29 Spherocytes Not Reportable 07/07/19 21:29 Pappenheimer Bodies Not Reportable 07/07/19 21:29 Sickle Cells Not Reportable 07/07/19 21:29 Target Cells Not Reportable 07/07/19 21:29 Tear Drop Cells Not Reportable 07/07/19 21:29 Ovalocytes Not Reportable 07/07/19 21:29 Helmet Cells Not Reportable 07/07/19 21:29 Pak-[place] Bodies Not Reportable 07/07/19 21:29 [place] Rings Not Reportable 07/07/19 21:29 [place] Cells Not Reportable 07/07/19 21:29 Bite Cells Not Reportable 07/07/19 21:29 Crenated Cell Not Reportable 07/07/19 21:29 Elliptocytes Not Reportable 07/07/19 21:29 Acanthocytes (Spur) Not Reportable 07/07/19 21:29 Rouleaux Not Reportable 07/07/19 21:29 Hemoglobin C Crystals Not Reportable 07/07/19 21:29 Schistocytes Not Reportable 07/07/19 21:29 Malaria parasites Not Reportable 07/07/19 21:29 Dain Bodies Not Reportable 07/07/19 21:29 Hem Pathologist Commnt No 07/07/19 21:29 PT 12.7 Sec. (12.2-14.9) 07/07/19 22:41 INR 0.96 (0.87-1.13) 07/07/19 22:41 APTT 26.0 Sec. (24.2-36.6) 07/07/19 22:41 Sodium 139 mmol/L (137-145) 07/07/19 21:29 Potassium 3.9 mmol/L (3.6-5.0) 07/07/19 21:29 Chloride 105.6 mmol/L (98-107) 07/07/19 21:29 Carbon Dioxide 21 mmol/L (22-30) L 07/07/19 21:29 Anion Gap 16 mmol/L 07/07/19 21:29 BUN 11 mg/dL (7-17) 07/07/19 21:29 Creatinine 0.6 mg/dL (0.7-1.2) L 07/07/19 21:29 Estimated GFR > 60 ml/min 07/07/19 21:29 BUN/Creatinine Ratio 18 % 07/07/19 21:29 Glucose 105 mg/dL (65-100) H 10/31/19 21:29 Calcium 8.9 mg/dL (8.4-10.2) 07/07/19 21:29 Assessment and Plan Assessment and plan: 1. Rt wrist fracture 2. S/p fall 3. Vertigo 4. CAD (on plavix) 5. COPD (stable) 6. Hyperlipidemia 7. Hypertension 8. Osteoporosis Plan: Admit to med/surg with remote tele Consult orthopedic for evaluation EKG/cardiology consult for cardiac clearance Keep NPO for fracture repair in am IVF for hydration Pain control with Morphine IV PRN Further plan per hospital course Advance Directives: Yes VTE prophylaxis?: Chemical Plan of care discussed with patient/family: Yes
[2019-07-07] MEDS ORDERED: oxyCODONE /ACETAMINOPHEN 5-325MG TAB ONE (23:51)
[2019-07-07] MEDS: oxyCODONE /ACETAMINOPHEN 5-325MG TAB PO PRN (23:57)
--- NOTE | 2019-07-08 00:10 | XRay Report ---
RIGHT WRIST 2 VIEWS 2305 INDICATION: s/p reduction COMPARISON: 2153 FINDINGS: Views were obtained in a fiberglass cast. The comminuted distal radial and ulnar fractures are again seen. Improved bony positioning is noted. There is still mild dorsal angulation at the radi al fracture site with ventral displacement and overriding but the lateral displacement and angulation are improved. The ulnar fracture shows near correction of the lateral dilatation with mild continued lateral displacement. Signer Name: Grant De Luna MD Signed: 07/08/2019 12:05 AM Workstation Name: [id number]
[2019-07-08] MEDS ORDERED: MECLIZINE 12.5 MG TAB PO PRN (06:01)
[2019-07-08] MEDS: oxyCODONE /ACETAMINOPHEN 5-325MG TAB PO PRN (06:24)
[2019-07-08] MEDS: FAMOTIDINE 20 MG/2 ML INJ IV SCH ×2 (09:45→21:36)
[2019-07-08] MEDS: LEVOTHYROXINE 88 MCG TAB PO SCH (09:45)
[2019-07-08] MEDS: CLOPIDOGREL 75 MG TAB PO SCH (09:45)
[2019-07-08] MEDS ORDERED: ERGOCALCIFEROL 400 UNIT PO SCH (10:00)
[2019-07-08] MEDS ORDERED: ALENDRONATE SODIUM 70 MG TAB PO SCH (10:00)
--- NOTE | 2019-07-08 10:33 | Consultation ---
History of Present Illness Consult date: 07/08/19 Consult reason: pre op evaluation History of present illness: This is a 73 year old woman with a history of COPD, CVA on plavix, hypothyroidism and vertigo. Patient denies previous cardiac history. Her latest cardiac evaluation with an echocardiogram done at this hospital in 2017, reports a normal left ventricular systolic function, ejection fraction 60-65%. Patient is admitted with right wrist fracture following a fall at home. Patient reports she turned abruptly, became dizzy resulting in a fall. Patient denies chest pain, unusual shortness of breath and palpitations just prior to her fall. Patient denies loss of consciousness. Awaits orthopedics consultation and evaluation. A cardiac consultation has been requested for pre-operative risk assessment. 12 lead ECG is benign, normal sinus rhythm. Past History Past Medical History: COPD, hypertension, hyperlipidemia, hypothyroidism Past Surgical History: No surgical history, Other (left wrist surgery) Social history: no significant social history Family history: no significant family history Medications and Allergies Allergies Allergy/AdvReac Type Severity Reaction Status Date / Time cephalexin monohydrate Allergy Hives Verified 04/15/17 21:11 [From Keflex] Home Medications Medication Instructions Recorded Confirmed Last Taken Type Alendronate Sodium [Fosamax] 70 mg PO QWEEK 04/15/17 07/07/19 04/15/17 History Ergocalciferol(Vitamin D2)(Nf) 400 unit PO DAILY 04/15/17 07/07/19 04/15/17 History [Vitamin D (Nf)] Meclizine [Antivert] 12.5 mg PO BID PRN #20 tablet 04/17/17 07/07/19 Unknown Rx Clopidogrel [Plavix] 75 mg PO QDAY #30 tablet 04/25/17 07/07/19 Unknown Rx Tiotropium [Spiriva] 1 puff IH QDAY cap 04/25/17 07/07/19 Unknown Rx AtorvaSTATin [Lipitor] 20 mg PO QHS 07/07/19 07/07/19 Unknown History Levothyroxine [Synthroid] 88 mcg PO QAM 07/07/19 07/07/19 Unknown History Active Meds: Active Medications Acetaminophen (Tylenol) 650 mg PO Q4H PRN PRN Reason: Pain MILD(1-3)/Fever >100.5/PHILIPPE Alendronate Sodium (Fosamax) 70 mg PO QWEEK BEA Atorvastatin Calcium (Lipitor) 20 mg PO QHS [facility] Clopidogrel Bisulfate (Plavix) 75 mg PO QDAY [facility] Last Admin: 07/08/19 09:45 Dose: 75 mg Documented by: Famotidine (Pepcid) 20 mg IV BID [facility] Last Admin: 07/08/19 09:45 Dose: 20 mg Documented by: Levothyroxine Sodium (Synthroid) 88 mcg PO QAM [facility] Last Admin: 07/08/19 09:45 Dose: 88 mcg Documented by: Meclizine HCl (Antivert) 12.5 mg PO BID PRN PRN Reason: Vertigo Miscellaneous Medication (Ergocalciferol(Vitamin D2)(Nf)) 400 unit PO DAILY [facility] Ondansetron HCl (Zofran) 4 mg IV Q8H PRN PRN Reason: Nausea And Vomiting Oxycodone/Acetaminophen (Percocet 5/325) 1 tab PO Q6H PRN PRN Reason: Pain, Moderate (4-6) Last Admin: 07/08/19 06:24 Dose: 1 tab Documented by: Sodium Chloride (Sodium Chloride Flush Syringe 10 Ml) 10 ml IV BID [facility] Sodium Chloride (Sodium Chloride Flush Syringe 10 Ml) 10 ml IV PRN PRN PRN Reason: LINE FLUSH Physical Examination Vital Signs Temp Pulse Resp BP Pulse Ox 97.5 F L 89 17 148/84 92 07/07/19 20:23 07/07/19 20:23 07/07/19 20:23 07/07/19 20:23 07/07/19 20:23 General appearance: no acute distress HEENT: Positive: PERRL Neck: Positive: trachea midline Cardiac: Positive: Reg Rate and Rhythm Lungs: Positive: Decreased Breath Sounds Neuro: Positive: Grossly Intact Extremities: Absent: edema Results 07/07/19 21:29 07/07/19 21:29 Coagulation 07/07/19 Range/Units 22:41 PT 12.7 (12.2-14.9) Sec. INR 0.96 (0.87-1.13) APTT 26.0 (24.2-36.6) Sec. CBC 07/07/19 Range/Units 21:29 WBC 15.9 H (4.5-11.0) K/mm3 RBC 4.77 (3.65-5.03) M/mm3 Hgb 13.4 (10.1-14.3) gm/dl Hct 41.1 (30.3-42.9) % Plt Count 294 (140-440) K/mm3 Comprehensive Metabolic Panel 07/07/19 Range/Units 21:29 Sodium 139 (137-145) mmol/L Potassium 3.9 (3.6-5.0) mmol/L Chloride 105.6 (98-107) mmol/L Carbon Dioxide 21 L (22-30) mmol/L BUN 11 (7-17) mg/dL Creatinine 0.6 L (0.7-1.2) mg/dL Glucose 105 H (65-100) mg/dL Calcium 8.9 (8.4-10.2) mg/dL Assessment and Plan Right wrist fracture Cardiac risk assessment Hx of CVA on plavix Hx of COPD Hx of Hypothyroidism Normal LVEF 60-65% by echo 04/2017
--- NOTE | 2019-07-08 10:52 | Anesthesia Consultation ---
Anesthesia Consult and Med Hx Date of service: 07/08/19 - Airway Anesthetic Teeth Evaluation: Dentures ROM Head & Neck: Adequate Mental/Hyoid Distance: Adequate Mallampati Class: Class I Intubation Access Assessment: Good - Pulmonary Exam CTA: Yes - Cardiac Exam Cardiac Exam: RRR - Pre-Operative Health Status ASA Pre-Surgery Classification: ASA2 Proposed Anesthetic Plan: General - Pulmonary Hx Smoking: Yes (>50 pack years) Hx Asthma: No Hx Respiratory Symptoms: No SOB: No COPD: Yes Home Oxygen Therapy: No Hx Pneumonia: No Hx Sleep Apnea: No - Cardiovascular System Hx Hypertension: No (multiple cerebral infarcts) Hx Coronary Artery Disease: No Hx Heart Attack/AMI: No Hx Angina: No Hx Percutaneous Transluminal Coronary Angioplasty (PTCA): No Hx Cardia Arrhythmia: No Hx Pacemaker: No Hx Internal Defibrillator: No Hx Valvular Heart Disease: No Hx Heart Murmur: No Hx Peripheral Vascular Disease: No - Central Nervous System Hx Neuromuscular Disorder: Yes (arthritis) Hx Seizures: No CVA: No Hx Psychiatric Problems: Yes - Gastrointestinal Hx Ulcer: Yes - Endocrine Hx Hypothyroidism: Yes - Hematic Hx Anemia: Yes - Other Systems Hx Cancer: No
--- NOTE | 2019-07-08 10:54 | Anesthesia Day of Surgery ---
Anesthesia Day of Surgery - Day of Surgery Patient Examined: Yes Patient H&P Reviewed: Yes Patient is NPO: Yes
[2019-07-08] MEDS ORDERED: fentaNYL 100 MCG/2 ML INJ IV ONE (11:39)
[2019-07-08] MEDS ORDERED: BUPIVACAINE-EPINEPHRINE/PF 0.5%-1:200,000 (30 ML) VIAL INFILTRATI ONE (11:43)
[2019-07-08] MEDS ORDERED: LACTATED RINGERS 1,000 ML ONE (11:45)
[2019-07-08] MEDS ORDERED: LIDOCAINE (1%) 10 MG/1 ML VIAL 20 ML MDV INFILTRATI NR (11:45)
[2019-07-08] MEDS ORDERED: LACTATED RINGERS 1,000 ML IV SCH (12:00)
[2019-07-08] MEDS ORDERED: MIDAZOLAM 2 MG/2 ML INJ IV NR (12:00)
[2019-07-08] MEDS ORDERED: fentaNYL 100 MCG/2 ML INJ ONE (12:05)
[2019-07-08] MEDS ORDERED: LIDOCAINE MPF (2%) 20 MG/1 ML VIAL 5 ML ONE (12:05)
[2019-07-08] MEDS ORDERED: PROPOFOL 200 MG/20 ML VIAL IV ONE (12:06)
[2019-07-08] MEDS ORDERED: VANCOMYCIN/NS 1 GM/250 ML 1 GM/250 ML BAG IV STA (12:25)
[2019-07-08] MEDS ORDERED: ePHEDrine SULFATE 50 MG/1 ML INJ ONE (12:56)
--- NOTE | 2019-07-08 13:17 | Event Note ---
Date: 07/08/19 Cardiology consulted for pre-operative evaluation. Unfortunately, the patient is off the floor and is in surgery.
[2019-07-08] MEDS ORDERED: MORPHINE 4 MG/1 ML INJ IV PRN (14:00)
--- NOTE | 2019-07-08 14:05 | Consultation ---
History of Present Illness - HPI Consult date: 07/08/19 Consult reason: fracture Past History Past Medical History: COPD, hypertension, hyperlipidemia, hypothyroidism Past Surgical History: No surgical history, Other (left wrist surgery) Social history: no significant social history Family history: no significant family history Medications and Allergies Allergies Allergy/AdvReac Type Severity Reaction Status Date / Time cephalexin monohydrate Allergy Hives Verified 04/15/17 21:11 [From [employer]] Home Medications Medication Instructions Recorded Confirmed Last Taken Type Alendronate Sodium [Fosamax] 70 mg PO QWEEK 04/15/17 07/07/19 04/15/17 History Ergocalciferol(Vitamin D2)(Nf) 400 unit PO DAILY 04/15/17 07/07/19 04/15/17 History [Vitamin D (Nf)] Meclizine [Antivert] 12.5 mg PO BID PRN #20 tablet 04/17/17 07/07/19 Unknown Rx Clopidogrel [Plavix] 75 mg PO QDAY #30 tablet 04/25/17 07/07/19 Unknown Rx Tiotropium [Spiriva] 1 puff IH QDAY cap 04/25/17 07/07/19 Unknown Rx AtorvaSTATin [Lipitor] 20 mg PO QHS 07/07/19 07/07/19 Unknown History Levothyroxine [Synthroid] 88 mcg PO QAM 07/07/19 07/07/19 Unknown History Active Meds: Active Medications Acetaminophen (Tylenol) 650 mg PO Q4H PRN PRN Reason: Pain MILD(1-3)/Fever >100.5/PHILIPPE Alendronate Sodium (Fosamax) 70 mg PO QWEEK [facility] Atorvastatin Calcium (Lipitor) 20 mg PO QHS [facility] Cholecalciferol (Vitamin D3) 400 unit PO QDAY [facility] Clopidogrel Bisulfate (Plavix) 75 mg PO QDAY [facility] Last Admin: 07/08/19 09:45 Dose: 75 mg Documented by: Famotidine (Pepcid) 20 mg IV BID [facility] Last Admin: 07/08/19 09:45 Dose: 20 mg Documented by: Lactated Ringer's (Lactated Ringers) 1,000 mls @ 75 mls/hr IV DIRECT [facility] Last Admin: 07/08/19 11:55 Dose: 75 mls/hr Documented by: Levothyroxine Sodium (Synthroid) 88 mcg PO QAM [facility] Last Admin: 07/08/19 09:45 Dose: 88 mcg Documented by: Lidocaine (Xylocaine 1% 20 Ml) 10 ml INFILTRATI PREOP NR Stop: 07/08/19 23:00 Meclizine HCl (Antivert) 12.5 mg PO BID PRN PRN Reason: Vertigo Midazolam HCl (Versed) 2 mg IV PREOP NR Stop: 07/08/19 23:59 Last Admin: 07/08/19 12:00 Dose: 1 mg Documented by: Ondansetron HCl (Zofran) 4 mg IV Q8H PRN PRN Reason: Nausea And Vomiting Oxycodone/Acetaminophen (Percocet 5/325) 1 tab PO Q6H PRN PRN Reason: Pain, Moderate (4-6) Last Admin: 07/08/19 06:24 Dose: 1 tab Documented by: Sodium Chloride (Sodium Chloride Flush Syringe 10 Ml) 10 ml IV BID [facility] Sodium Chloride (Sodium Chloride Flush Syringe 10 Ml) 10 ml IV PRN PRN PRN Reason: LINE FLUSH Physical Examination - Physical exam Narrative exam: right wrist - ++ deformity, 3cm laceration dorsal ulnar surface, decreased active ROM, good capillary refill Eyes: PERRL ENT: Positive: clear oral mucosa Respiratory effort: normal Respiratory: bilateral: CTA Rhythm: regular Heart Sounds: Positive: S1 & S2 General gastrointestinal: Positive: soft, non-tender, non-distended, normal bowel sounds Integumentary: clear, warm, dry Neurologic: Positive: CNII-XII intact, moves all extremities, gait normal. Negative: focal deficits - Cervical Spine Neck pain: none Tenderness with palpation: none Full ROM: yes ROM: flexion: normal ROM: extension: normal ROM: rotation right: normal ROM: rotation left: normal ROM: lateral flexion right: normal ROM: lateral flexion left: normal - Lumbar Spine Back pain: none Tenderness with palpation: none Appearance: normal Full ROM: yes ROM: flexion: normal ROM: extension: normal ROM: rotation right: normal ROM: rotation left: normal ROM: lateral flexion right: normal ROM: lateral flexion left: normal Assessment and Plan open fracture right wrist with displaced fracture fragments recommendations - Irrigation/debridement right wrist followed by open reduction internal fixation distal radius
--- NOTE | 2019-07-08 14:09 | Procedure Note ---
Date of procedure: 07/08/19 Pre-op diagnosis: open fracture right wrist Post-op diagnosis: same Procedure: Irrigation debridement followed by open reduction internal fixation right distal radius Procedure The patient was brought to the OR placed in the OR table in supine position following induction and intubation by anesthesia the patient's right upper extremity was prepped and draped in the usual sterile manner A timeout procedure was done to identify the patient and the correct operative site. The arm was exsanguinated followed by inflation of the pneumatic tourniquet to 250 mmHg. A volar incision was made along the distal radius as is taken down sharply through skin and subcutaneous the flexor carpi radialis tendon was seen next the incision was carried deep to this structure we encountered the quadratus tendon this was then debrided from the distal radius using a periosteal elevator the fracture site was seen she was noted to have a small comminuted fragment along the volar surface after the gentle manipulation the fracture fragments were reduced into a more anatomic position next the right distal radius locking plate was applied via C-arm care was taken to insert both locking and nonlocking screws of various lengths AP and lateral views were obtained showing good reduction at the fracture and in placement of our hardware the wrist was taken through a range of motion and was found to be stable next the wound was copiously irrigated and was closed in a standard routine fashion. Dressings were applied as well as a well-padded volar splint the patient tolerated the procedure there were no complications and she was sent to postanesthesia re covery in a stable condition Anesthesia: GETA Surgeon: MASHA OSULLIVAN (Mónica Martinez, 1st physical laboratory assistant) Estimated blood loss: minimal Pathology: none Condition: stable Disposition: PACU
--- NOTE | 2019-07-08 15:04 | Post Anesthesia Evaluation ---
- Post Anesthesia Evaluation Patient Participated: Yes Airway Patent: Yes Stable Respiratory Function: Yes Nausea/Vomiting: No Temp > 96.8F: Yes Pain Manageable: Yes Adequeate Hydration: Yes Anesthesia Complications: No Block Receding Appropriately: Not Applicable Patient on Ventilator: No
--- NOTE | 2019-07-08 16:32 | XRay Report ---
Right wrist 2 fluoroscopic views. 07/08/2019. HISTORY: Wrist pain. FINDINGS: Plate and screw fixation of the distal radius. Fluoroscopy time: 7 seconds. 2 fluoroscopic images were obtained. Signer Name: Leon Santana MD Signed: 07/08/2019 4:28 PM Workstation Name: [id number]
--- NOTE | 2019-07-08 16:47 | Progress Note ---
Assessment and Plan Assessment and plan: Pt is a 73 year old female with PMHx of hypothyroidism, osteoporosis, HDL, CAD, COPD, vertigo, who was brought to the ER with c/o right wist pain. Pt's son in room states that pt was standing in the kitchen when she abruptly turned, she became dizzy and fell, she landed on her right hand. Pt states that she developed a sudden pain in her right wrist. She denies recent illness, denies headache, denies denies head injury, denies visual changes. In the ER, Pt had an x-ray that showed a comminuted distal radius and ulnar fracture, orthopedic was consulted and pt was admitted for further evaluation 1. Rt wrist fracture- s/p repair Irrigation debridement followed by open reduction internal fixation right distal radius 2. S/p fall 3. Vertigo 4. CAD (on plavix) 5. COPD (stable) 6. Hyperlipidemia 7. Hypertension 8. Osteoporosis Plan: Continue supportive care Pain control Outpatient work up for vertigo, consider vestibular training Consult orthopedic for evaluation EKG/cardiology consult for cardiac clearance IVF for hydration Pain control with Morphine IV PRN Further plan per hospital course History Interval history: Patient seen and examined post repair of right upper ext fracture. Son at bedside. Resports chronic vertigo, otherwise doing well pain alfonso post surgery. No new complaints Hospitalist Physical - Physical exam Narrative exam: General appearance: Present: no distress - EENT Eyes: Present: EOM intact ENT: hearing intact - Neck Neck: Present: normal ROM - Respiratory Respiratory effort: normal Respiratory: bilateral: diminished - Cardiovascular Heart Sounds: Present: S1 & S2 - Extremities Extremities: no ischemia, No edema Peripheral Pulses: within normal limits, right arm in sling - Abdominal General gastrointestinal: Present: soft, non-tender Female genitourinary: Present: deferred - Rectal Rectal Exam: deferred - Integumentary Integumentary: Present: warm, dry - Musculoskeletal Musculoskeletal: strength equal bilaterally - Psychiatric Psychiatric: cooperative - Neurologic Neurologic: moves all extremities - Constitutional Vitals: Temp Pulse Resp BP Pulse Ox 97.8 F 71 18 118/71 95 07/08/19 14:59 07/08/19 14:59 07/08/19 14:59 07/08/19 14:59 07/08/19 14:59 General appearance: Present: severe distress Results - Labs CBC & Chem 7: 07/07/19 21:29 07/07/19 21:29 Labs: Laboratory Last Values WBC 15.9 K/mm3 (4.5-11.0) H 07/07/19 21:29 RBC 4.77 M/mm3 (3.65-5.03) 07/07/19 21:29 Hgb 13.4 gm/dl (10.1-14.3) 07/07/19 21:29 Hct 41.1 % (30.3-42.9) 07/07/19 21:29 MCV 86 fl (79-97) 07/07/19 21:29 MCH 28 pg (28-32) 07/07/19 21: MCHC 33 % (30-34) 07/07/19 21: RDW 15.5 % (13.2-15.2) H 07/07/19 21:29 Plt Count 294 K/mm3 (140-440) 07/07/19 21:29 Add Manual Diff Complete 07/07/19 21:29 Total Counted 100 07/07/19 21:29 Seg Neuts % (Manual) 83.0 % (40.0-70.0) H 07/07/19 21:29 Band Neutrophils % 0 % 07/07/19 21: Lymphocytes % (Manual) 9.0 % (13.4-35.0) L 07/07/19 21:29 Reactive Lymphs % (Man) 0 % 07/07/19 21:29 Monocytes % (Manual) 6.0 % (0.0-7.3) 07/07/19 21: Eosinophils % (Manual) 1.0 % (0.0-4.3) 07/07/19 21: Basophils % (Manual) 1.0 % (0.0-1.8) 07/07/19 21:29 Metamyelocytes % 0 % 07/07/19 21:29 Myelocytes % 0 % 07/07/19 21:29 Promyelocytes % 0 % 07/07/19 21:29 Blast Cells % 0 % 07/07/19 21:29 Nucleated RBC % Not Reportable 07/07/19 21:29 Seg Neutrophils # Man 13.2 K/mm3 (1.8-7.7) H 07/07/19 21: Band Neutrophils # 0.0 K/mm3 07/07/19 21:29 Lymphocytes # (Manual) 1.4 K/mm3 (1.2-5.4) 07/07/19 21:29 Abs React Lymphs (Man) 0.0 K/mm3 07/07/19 21:29 Monocytes # (Manual) 1.0 K/mm3 (0.0-0.8) H 07/07/19 21:29 Eosinophils # (Manual) 0.2 K/mm3 (0.0-0.4) 07/07/19 21:29 Basophils # (Manual) 0.2 K/mm3 (0.0-0.1) H 07/07/19 21:29 Metamyelocytes # 0.0 K/mm3 07/07/19 21:29 Myelocytes # 0.0 K/mm3 07/07/19 21:29 Promyelocytes # 0.0 K/mm3 07/07/19 21:29 Blast Cells # 0.0 K/mm3 07/07/19 21:29 WBC Morphology Not Reportable 07/07/19 21:29 Hypersegmented Neuts Not Reportable 07/07/19 21:29 Hyposegmented Neuts Not Reportable 07/07/19 21:29 Hypogranular Neuts Not Reportable 07/07/19 21:29 Smudge Cells Not Reportable 07/07/19 21:29 Toxic Granulation Not Reportable 07/07/19 21:29 Toxic Vacuolation Not Reportable 07/07/19 21:29 Dohle Bodies Not Reportable 07/07/19 21:29 Pelger-Huet Anomaly Not Reportable 07/07/19 21:29 Etta Rods Not Reportable 07/07/19 21:29 Platelet Estimate Not Reportable 07/07/19 21:29 Clumped Platelets Not Reportable 07/07/19 21:29 Plt Clumps, EDTA Not Reportable 07/07/19 21:29 Large Platelets Not Reportable 07/07/19 21:29 Giant Platelets Not Reportable 07/07/19 21:29 Platelet Satelliting Not Reportable 07/07/19 21:29 Plt Morphology Comment Not Reportable 07/07/19 21:29 RBC Morphology Normal 07/07/19 21:29 Dimorphic RBCs Not Reportable 07/07/19 21:29 Polychromasia Not Reportable 07/07/19 21:29 Hypochromasia Not Reportable 07/07/19 21:29 Poikilocytosis Not Reportable 07/07/19 21:29 Anisocytosis Not Reportable 07/07/19 21:29 Microcytosis Not Reportable 07/07/19 21:29 Macrocytosis Not Reportable 07/07/19 21:29 Spherocytes Not Reportable 07/07/19 21:29 Pappenheimer Bodies Not Reportable 07/07/19 21:29 Sickle Cells Not Reportable 07/07/19 21:29 Target Cells Not Reportable 07/07/19 21:29 Tear Drop Cells Not Reportable 07/07/19 21:29 Ovalocytes Not Reportable 07/07/19 21:29 Helmet Cells Not Reportable 07/07/19 21:29 [place] Bodies Not Reportable 07/07/19 21:29 Leupp Rings Not Reportable 07/07/19 21:29 [place] Cells Not Reportable 07/07/19 21:29 Bite Cells Not Reportable 07/07/19 21:29 Crenated Cell Not Reportable 07/07/19 21:29 Elliptocytes Not Reportable 07/07/19 21:29 Acanthocytes (Spur) Not Reportable 07/07/19 21:29 Rouleaux Not Reportable 07/07/19 21:29 Hemoglobin C Crystals Not Reportable 07/07/19 21:29 Schistocytes Not Reportable 07/07/19 21:29 Malaria parasites Not Reportable 07/07/19 21:29 Dain Bodies Not Reportable 07/07/19 21:29 Hem Pathologist Commnt No 07/07/19 21:29 PT 12.7 Sec. (12.2-14.9) 07/07/19 22:41 INR 0.96 (0.87-1.13) 07/07/19 22:41 APTT 26.0 Sec. (24.2-36.6) 07/07/19 22:41 Sodium 139 mmol/L (137-145) 07/07/19 21:29 Potassium 3.9 mmol/L (3.6-5.0) 07/07/19 21:29 Chloride 105.6 mmol/L (98-107) 07/07/19 21:29 Carbon Dioxide 21 mmol/L (22-30) L 07/07/19 21:29 Anion Gap 16 mmol/L 07/07/19 21:29 BUN 11 mg/dL (7-17) 07/07/19 21:29 Creatinine 0.6 mg/dL (0.7-1.2) L 07/07/19 21:29 Estimated GFR > 60 ml/min 07/07/19 21:29 BUN/Creatinine Ratio 18 % 07/07/19 21:29 Glucose 105 mg/dL (65-100) H 07/07/19 21:29 Calcium 8.9 mg/dL (8.4-10.2) 07/07/19 21:29 Blood Type O POSITIVE 07/07/19 21:29 Antibody Screen Negative 07/07/19 21:29 Active Medications - Current Medications Current Medications: Generic Name Dose Route Start Last Admin Trade Name Freq PRN Reason Stop Dose Admin Acetaminophen 650 mg 07/07/19 22:43 Tylenol PO Q4H PRN Pain MILD(1-3)/Fever >100.5/[facility] Alendronate Sodium 70 mg 07/08/19 10:00 Fosamax PO QWEEK [facility] Atorvastatin Calcium 20 mg 07/08/19 22:00 Lipitor PO QHS [facility] Cholecalciferol 400 unit 07/09/19 10:00 Vitamin D3 PO QDAY [facility] Clopidogrel Bisulfate 75 mg 07/08/19 10:00 07/08/19 09:45 Plavix PO 75 mg QDAY [facility] Administration Famotidine 20 mg 07/08/19 10:00 07/08/19 09:45 Pepcid IV 20 mg BID [facility] Administration Lactated Ringer's 1,000 mls @ 75 mls/hr 07/08/19 12:00 07/08/19 11:55 Lactated Ringers IV 75 mls/hr DIRECT [facility] Administration Levothyroxine Sodium 88 mcg 07/08/19 10:00 07/08/19 09:45 Synthroid PO 88 mcg QAM [facility] Administration Lidocaine 10 ml 07/08/19 11:45 Xylocaine 1% 20 Ml INFILTRATI 07/08/19 23:00 PREOP NR Meclizine HCl 12.5 mg 07/08/19 06:01 Antivert PO BID PRN Vertigo Midazolam HCl 2 mg 07/08/19 12:00 07/08/19 12:00 Versed IV 07/08/19 23:59 1 mg PREOP NR Administration Morphine Sulfate 4 mg 07/08/19 14:00 Morphine IV Q4H PRN Pain , Severe (7-10) Ondansetron HCl 4 mg 07/07/19 22:43 Zofran IV Q8H PRN Nausea And Vomiting Oxycodone/Acetaminophen 1 tab 07/08/19 14:00 Percocet 5/325 PO Q6H PRN Pain, Moderate (4-6) Sodium Chloride 10 ml 07/08/19 10:00 Sodium Chloride Flush Syringe 10 Ml IV BID [facility] Sodium Chloride 10 ml 07/07/19 22:43 Sodium Chloride Flush Syringe 10 Ml IV PRN PRN LINE FLUSH Sodium Chloride 10 ml 07/08/19 14:00 Sodium Chloride Flush Syringe 10 Ml IV PRN [facility]
[2019-07-09] MEDS: oxyCODONE /ACETAMINOPHEN 5-325MG TAB PO PRN ×2 (04:31→11:09)
--- NOTE | 2019-07-09 08:39 | Discharge Summary ---
Providers - Providers Date of Admission: 07/07/19 22:43 Attending physician: LIZA DODD MD 07/07/19 23:04 Consult to Physician [CONS] Stat Comment: Dr. Gibson spoke with Dr. Pandya @ [id number] Consulting Provider: MASHA PANDYA Physician Instructions: Reason For Exam: open right wrist fracture 07/08/19 08:24 Consult to Physician [CONS] Routine Comment: Consulting Provider: RAISA CRUZ Physician Instructions: Reason For Exam: cardiac clearnace Primary care physician: FLIGHT ATTENDANT Hospitalization Condition: Stable Hospital course: Pt is a 73 year old female with PMHx of hypothyroidism, osteoporosis, HDL, CAD, COPD, vertigo, who was brought to the ER with c/o right wist pain. Pt's son in room states that pt was standing in the kitchen when she abruptly turned, she became dizzy and fell, she landed on her right hand. Pt states that she developed a sudden pain in her right wrist. She denies recent illness, denies headache, denies denies head injury, denies visual changes. In the ER, Pt had an x-ray that showed a comminuted distal radius and ulnar fracture, orthopedic was consulted and pt was admitted for further evaluation 1. Rt wrist fracture- s/p repair Irrigation debridement followed by open reduction internal fixation right distal radius 2. S/p fall 3. Vertigo 4. CAD (on plavix) 5. COPD (stable) 6. Hyperlipidemia 7. Hypertension 8. Osteoporosis Plan: Continue supportive care Pain control Outpatient work up for vertigo, consider vestibular training Consult orthopedic for evaluation EKG/cardiology consult for cardiac clearance IVF for hydration Pain control with Morphine IV PRN Further plan per hospital course Disposition: - TO HOME OR SELFCARE Time spent for discharge: 35 mins Core Measure Documentation - Palliative Care Palliative Care/ Comfort Measures: Not Applicable - Core Measures Any of the following diagnoses?: none Exam - Physical Exam Narrative exam: General appearance: Present: no distress - EENT Eyes: Present: EOM intact ENT: hearing intact - Neck Neck: Present: normal ROM - Respiratory Respiratory effort: normal Respiratory: bilateral: diminished - Cardiovascular Heart Sounds: Present: S1 & S2 - Extremities Extremities: no ischemia, No edema Peripheral Pulses: within normal limits, right arm in sling - Abdominal General gastrointestinal: Present: soft, non-tender Female genitourinary: Present: deferred - Rectal Rectal Exam: deferred - Integumentary Integumentary: Present: warm, dry - Musculoskeletal Musculoskeletal: strength equal bilaterally - Psychiatric Psychiatric: cooperative - Neurologic Neurologic: moves all extremities - Constitutional Vitals: Temp Pulse Resp BP Pulse Ox 98.9 F 83 18 134/75 93 07/09/19 07:52 07/09/19 07:52 07/09/19 07:52 07/09/19 07:52 07/09/19 07:52 Plan Activity: advance as tolerated, fall precautions Diet: low fat Special Instructions: record daily weights, physical therapy, occupational therapy Follow up with: PRIMARY CAREMD [Primary Care Provider] - 3-5 Days MASHA PANDYA MD [Staff Physician] - 7 Days Prescriptions: oxyCODONE /ACETAMINOPHEN [Percocet 5/325 mg] 1 tab PO Q6H PRN #14 tablet PRN Reason: Pain, Moderate (4-6)
[2019-07-09] MEDS: CLOPIDOGREL 75 MG TAB PO SCH (09:34)
[2019-07-09] MEDS: FAMOTIDINE 20 MG/2 ML INJ IV SCH (09:34)
[2019-07-09] MEDS: LEVOTHYROXINE 88 MCG TAB PO SCH (09:34)
[2019-07-09] MEDS ORDERED: CHOLECALCIFEROL (VIT D3) 400 UNIT TAB PO SCH (10:00)
[2019-07-09 11:47] VITALS: BP 133/77
== END 2019-07-09 12:30 | disposition home or self-care (01) | DRG 512 ==
LOC: ED 20:17 → 3B-SURG 22:43
PROVIDERS: ADMIT Internal Medicine; ATTEND Internal Medicine
PROC: 0PSHXZZ Reposition Right Radius, External Approach (ICD-10-PCS; 2019-07-07)
PROC: 0PSH04Z Reposition Right Radius with Internal Fixation Device, Open Approach (ICD-10-PCS; principal; 2019-07-08)
DX: S52.501A Unspecified fracture of the lower end of right radius, initial encounter for closed fracture (principal); S52.601A Unspecified fracture of lower end of right ulna, initial encounter for closed fracture; I25.10 Atherosclerotic heart disease of native coronary artery without angina pectoris; F17.200 Nicotine dependence, unspecified, uncomplicated; J44.9 Chronic obstructive pulmonary disease, unspecified; M19.90 Unspecified osteoarthritis, unspecified site; E03.9 Hypothyroidism, unspecified; M81.0 Age-related osteoporosis without current pathological fracture; E78.5 Hyperlipidemia, unspecified; I10 Essential (primary) hypertension; W18.39XA Other fall on same level, initial encounter; Z79.899 Other long term (current) drug therapy; Y93.89 Activity, other specified; Y92.090 Kitchen in other non-institutional residence as the place of occurrence of the external cause; Y99.8 Other external cause status
CPT/HCPCS: 36415; 64450; 80048; 85007; 85025; 85610; 85730; 86850; 86900; 86901; 93005; 93010; 96365; G0378; A9270-GY; C1713; J1170; J2250; J2270; J2704; J3010; J3370; J7030; J7120

== ENCOUNTER 2019-09-09 12:02 | Outpatient (CLI) | payer MEDICARE ==
--- NOTE | 2019-09-09 13:03 | XRay Report ---
RIGHT WRIST HISTORY: S52.501A UNSPECIFIED FRACTURE OF THE LOWER END OF RIGHT RADIUS/IN COMPARISON: 07/08/2019 and 07/07/2019 TECHNIQUE: 4 views of the right wrist obtained. FINDINGS: Bones: Comminuted fractures of the distal radius and ulna without significant change in position of f racture fragments compared to the 07/07/2019 exam. Status post ORIF of the radius fracture. No defini te callus formation. Joint spaces: Maintained. Soft tissues: No significant abnormality. Additional findings: None. IMPRESSION: 1. Comminuted fractures of the distal radius and ulna without change in appearance of fracture fragme nts since 07/07/2019. 2. Status post ORIF of the distal radius fracture with placement of a plate and screws. Signer Name: Emmanuel Nathan MD Signed: 09/09/2019 12:58 PM Workstation Name: [id number]
== END 2019-09-09 12:03 | disposition home or self-care (01) ==
LOC: XRAY 12:02
PROVIDERS: ATTEND Orthopaedic Surgery
DX: S52.591A Other fractures of lower end of right radius, initial encounter for closed fracture (principal); S52.691A Other fracture of lower end of right ulna, initial encounter for closed fracture; X58.XXXA Exposure to other specified factors, initial encounter; Y93.89 Activity, other specified; Y92.89 Other specified places as the place of occurrence of the external cause; Y99.8 Other external cause status

== ENCOUNTER 2019-09-12 15:50 | Outpatient (CLI) | payer MEDICARE ==
--- NOTE | 2019-09-12 17:33 | XRay Report ---
Right hip 3 views INDICATION: Right hip pain for the past 2 years. IMPRESSION: Osteopenia throughout the pelvis and right hip region. There is questionable lucency with in the right sacrum which may represent underlying fracture. Recommend CT of the pelvis for further e valuation. No dislocation or periprosthetic fractures identified involving the proximal right femur. There appears to be a healing fracture involving the right inferior pubic ramus. Signer Name: Kee Busby MD Signed: 09/12/2019 5:28 PM Workstation Name: [id number]
== END 2019-09-12 15:51 | disposition home or self-care (01) ==
LOC: XRAY 15:50
PROVIDERS: ATTEND Orthopaedic Surgery
DX: M85.88 Other specified disorders of bone density and structure, other site (principal); M25.551 Pain in right hip

== ENCOUNTER 2020-07-18 12:27 | Outpatient (CLI) | payer MEDICARE ==
--- NOTE | 2020-07-18 14:01 | Mammography Report ---
BILATERAL DIGITAL SCREENING MAMMOGRAM WITH CAD HISTORY: SCREENING MAMMO TECHNIQUE: Routine digital mammographic imaging performed. This examination was interpreted with johnson rivera benefit of Computer-aided Detection analysis. COMPARISON: 04/07/2019. FINDINGS: Breast Density: scattered fibroglandular appearance of the breast tissue. Digital CC and MLO views demonstrate no mammographic evidence of malignancy. Scattered benign-appear ing calcifications are noted in both breasts. There is apparent left nipple retraction which is uncha nged from 2019 exam. IMPRESSION: Stable mammographic appearance without evidence of malignancy. There is unchanged left nipple retrac tion which is stable from 2019 exam. We do not have older mammograms to assess stability over a longe r time period. Clinical correlation is recommended. If the left nipple retraction has been present fo r greater than 2 years, a routine screening mammogram in one year would be appropriate. If the nipple retraction is new (within the past 2 years) additional evaluation with ultrasound would be recommend ed. BIRADS 2: Benign Finding(s). FURTHER INFORMATION: According to the [employer], yearly mammograms are recommend ed starting at age 40 and continuing as long as a woman is in good health. Clinical Breast Exams shou ld be part of a periodic health exam-about every 3 years for women in their 20s and 30s and every yea r for women 40 and over. Breast self exam is an option for women starting in their 20s. Any breast ch gus noted on a breast self exam should be reported promptly to the patient's healthcare provider. Br east MRI is recommended for women with an approximately 20-25% or greater lifetime risk of breast can cer, including women with a strong family history of breast or ovarian cancer and women who have been treated for Hodgkin's disease. A negative Mammography report should not discourage follow up or biopsy of a clinically significant f inding and/or abnormality. Dense breast tissue may obscure small neoplasms. The patient will be entered into a reminder system with a target due date for the next screening mamm ogram. . Signer Name: Naveed Neville MD Signed: 07/18/2020 1:56 PM Workstation Name: [id number]
== END 2020-07-18 12:28 | disposition home or self-care (01) ==
LOC: MAMMO 12:27
PROVIDERS: ATTEND Internal Medicine
DX: Z12.31 Encounter for screening mammogram for malignant neoplasm of breast (principal); N64.89 Other specified disorders of breast
CPT/HCPCS: 77067

== ENCOUNTER 2022-01-27 12:49 | Outpatient (CLI) | payer MEDICARE, BC ==
--- NOTE | 2022-01-28 19:02 | Mammography Report ---
DIGITAL SCREENING MAMMOGRAM WITH CAD, 01/27/2022 CLINICAL INFORMATION / INDICATION: Routine screening mammography. SCREENING MAMMOGRAM TECHNIQUE: Digital bilateral 2D mammography was obtained in the craniocaudal and mediolateral obliqu e projections. This examination was interpreted with the benefit of Computer-Aided Detection analysis . COMPARISON: 07/18/2020. FINDINGS: Breast Density: The breasts are heterogeneously dense, which may obscure small masses. No dominant mass, suspicious calcifications, or architectural distortion in either breast. Both breasts contain benign-appearing calcification. IMPRESSION: No mammographic evidence of malignancy. Follow up recommendation: Routine yearly screening mammogram. BI-RADS Category 2: BENIGN. A "normal" or negative report should not discourage follow up or biopsy of a clinically significant f inding. A written summary of these findings will be mailed to the patient. The patient will be entered into a mammography reporting system which will generate a reminder letter for the patient's next appointmen t at the appropriate interval. The [employer] recommends yearly mammograms starting at age 40 and continuing as l ramesh as a woman is in good health. Breast MRI is recommended for women with an approximate 20-25% or greater lifetime risk of breast cancer, including women with a strong family history of breast or ova robin cancer or who have been treated for Hodgkin's disease. Signer Name: Leon Santana MD Signed: 01/28/2022 6:57 PM Workstation Name: [id number]
== END 2022-01-27 12:50 | disposition home or self-care (01) ==
LOC: MAMMO 12:49
PROVIDERS: ATTEND Internal Medicine
DX: Z12.31 Encounter for screening mammogram for malignant neoplasm of breast (principal); N64.89 Other specified disorders of breast
CPT/HCPCS: 77067